=== PATIENT | female | born 1985 | race Caucasian/White ===

== ENCOUNTER 2017-03-04 19:21 | Emergency (ER) | payer OTHER ==
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
[2017-03-04] MEDS ORDERED: Eye-Stream Solution OP ONE (20:36)
[2017-03-04] MEDS ORDERED: TETRACAINE 0.5% STERI-UNIT SOL OP STA (20:36)
[2017-03-04] MEDS ORDERED: Fluor-I-Strip/Ful-Flo OP ONE ×2 (20:36→20:42)
[2017-03-04] MEDS ORDERED: TETRACAINE 0.5% STERI-UNIT SOL OP ONE (20:42)
[2017-03-04] MEDS ORDERED: Eye-Stream Solution ONE (20:42)
[2017-03-04 20:53] LABS: BASOPHIL % 0.5 % (0.0-0.4); Eosinophil % 4.5 % (0.00-5.0); Granulocytes % 38.9 % (36.0-66.0); Lymphocytes % 47.3 % (24.0-44.0); Mean Cell Volume 84.9 fl (78-100); Mean Corpuscular Hemoglobin 29.3 pg (26-32); Mean Platelet Volume 9.7 fl (6-9.5); Monocytes % 8.8 % (0.0-12.0); Platelet Count 252 K/mm3 (150-450); Red Blood Count 4.82 M/mm3 (4.1-5.4); Red Cell Distribution Width 12.7 % (11.5-14.0); White Blood Count 8.6 K/mm3 (4.0-10.5)
[2017-03-04 21:07] LABS: ANION GAP 15.6 MEQ/L (5-15); BLOOD UREA NITROGEN 14 mg/dL (9-20); CHLORIDE 101 mEq/L (98-107); Carbon Dioxide 23.9 mEq/L (21-32); Glucose 98 MG/DL (70-110); Potassium 3.2 mEq/L (3.5-5.1); SODIUM 137 mEq/L (136-145)
[2017-03-04 21:10] LABS: ACETAMINOPHEN < 2.0 ug/ml (10-30); ETHYL ALCOHOL < 0.010 % (0.00-0.01)
[2017-03-04] MEDS ORDERED: Dextrose 5%-Lr IV Solution 1000 ML 1,000 ML IV ONE ×2 (21:34→23:04)
[2017-03-04 21:40] LABS: Collection Type CLEAN CATCH; Leukocyte Esterase TRACE (NEGATIVE)
[2017-03-04 21:41] LABS: ADD URINE CULTURE? YES (NO); Bacteria PACKED /HPF (NEGATIVE); Bilirubin NEGATIVE (NEGATIVE); Blood 250 Ery/ul (0-5); COMPLETE URINE MICROSCOPIC? YES; Epithelial Cells MODERATE /HPF (FEW); Glucose NEGATIVE (NEGATIVE); Mucus MODERATE /HPF (NEGATIVE)
[2017-03-04] MEDS ORDERED: ROCEPHIN 1 Gm-D5w 50 ml Bag** 1 G/50 ML IVPB IV STA (22:24)
[2017-03-04] MEDS ORDERED: ROCEPHIN 1 Gm-D5w 50 ml Bag** 1 G/50 ML IVPB IV ONE (23:04)
[2017-03-04 23:33] VITALS: O2SAT 99
[2017-03-05 00:17] VITALS: BP 117/58; PULSE 87
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
--- NOTE | 2017-03-05 09:56 | XRAY ---
Indication: Trauma of unknown origin. Noncommunicative. Multiple contiguous axial images obtained through the abdomen and pelvis without contrast as ordered. Comparison: None Study is slightly degraded by beam artifact from patient's arms and some respiration artifact. Lung bases are clear. Heart is not enlarged. Noncontrasted stomach stomach and bowel loops appear nonobstructed. There is moderate diffuse scattered colonic fecal debris throughout. No free fluid/air. Liver demonstrates focal fatty infiltration versus pseudo-lesion adjacent to the falciform ligament. Gallbladder is moderately distended without gallstones. Common bile duct is up to 8mm in diameter tapering at the ampulla. Spleen is enlarged measuring 12.4 cm in greatest axial dimension. Query bilateral tubal ligation clips. Remaining liver, pancreas, adrenal glands, kidneys, ureters, bladder, uterus, and aorta appear unremarkable for noncontrast exam. Osseous structures intact. Impression: 1. Fecal stasis without obstruction. 2. Distended gallbladder and common bile duct. Rule out ampullary stenosis versus choledochal stones. Initial gallbladder ultrasound may yield further information. 3. Incidental splenomegaly. Comment: Preliminary interpretation was made by [facility] reports who hepatic hypoattenuation which I believe is just focal fatty infiltration/pseudo-lesion which is a common. Also reported left renal hypoattenuation is not appreciated. CT DI 10.12
--- NOTE | 2017-03-05 10:48 | XRAY ---
Indication: Trauma of unknown origin. Noncommunicative. Multiple contiguous axial images obtained through the head without contrast. Comparison: None Ventriculosulcal pattern appears symmetric. No acute intracranial hemorrhage, abnormal extra-axial fluid collection, or mass effect. Fourth ventricle is midline without hydrocephalus. Guillen-white matter differentiation maintained. Bony calvarium intact. Mild mucosal thickening of both ethmoid sinuses and right frontal sinus fluid leveling. Mastoid air cells are clear. Impression: Paranasal sinus disease. No acute intracranial abnormalities. Comment: Preliminary interpretation was made by [facility] who reports 2 mm increased attenuation in the right temporal lobe which I cannot confirm nor on the sagittal or coronal reformatted images. Low-attenuation also reported in the medial aspect of the right temporal lobe which I believe is normal extension of the temporal horn of the lateral ventricle. CTDI 52.42
[2017-03-16 19:22] LABS: MPVD None Det ng/mL
== END 2017-03-05 00:50 | disposition short-term general hospital (02) ==
LOC: ED 19:21
DX: R41.0 Disorientation, unspecified (principal); S09.90XA Unspecified injury of head, initial encounter; N39.0 Urinary tract infection, site not specified; S36.90XA Unspecified injury of unspecified intra-abdominal organ, initial encounter; F11.90 Opioid use, unspecified, uncomplicated
CPT/HCPCS: 36000; 36415; 70450; 73552; 73590; 73610; 74176; 80048; 80307; 80371; 81000; 82550; 84703; 85025; 87077; 87086; 87186; 96360; 96365; 99285; G0481; J0696; A9270-GY

== ENCOUNTER 2017-04-26 13:29 | Emergency (ER) | payer OTHER ==
[2017-04-26 15:42] LABS: Mean Cell Volume 88.5 fl (78-100); Mean Corpuscular Hemoglobin 29.7 pg (26-32); Mean Platelet Volume 10.2 fl (6-9.5); Platelet Count 160 K/mm3 (150-450); Red Blood Count 4.51 M/mm3 (4.1-5.4); Red Cell Distribution Width 12.7 % (11.5-14.0); White Blood Count 10.1 K/mm3 (4.0-10.5)
[2017-04-26 15:59] LABS: ETHYL ALCOHOL < 0.010 % (0.00-0.01)
[2017-04-26 16:02] LABS: ACETAMINOPHEN < 2.0 ug/ml (10-30)
[2017-04-26 16:16] LABS: ALBUMIN 3.5 g/dL (3.4-5.0); ALKALINE PHOSPHATASE 45 U/L (46-116); ANION GAP 10.4 MEQ/L (5-15); BLOOD UREA NITROGEN 14 mg/dL (9-20); CHLORIDE 106 mEq/L (98-107); Carbon Dioxide 29.5 mEq/L (21-32); Glucose 88 MG/DL (70-110); Potassium 4.5 mEq/L (3.5-5.1); SGOT/AST 14 U/L (15-37); SGPT/ALT 15 U/L (12-78); SODIUM 141 mEq/L (136-145); Total Protein 6.3 gm/dL (6.4-8.2)
--- NOTE | 2017-04-26 16:18 | ERPHSYRPT ---
- History of Present Illness Time Seen by Provider: 04/26/17 16:03 Source: patient, police Exam Limitations: no limitations Patient Subjective Stated Complaint: Pt states she has been out of her medicine for a couple of days and is not feeling right. Triage Nursing Assessment: PT arrived per law enforcement. alert and oriented x3. skin pink warm and dry. afebrile. flat affect. pt covered in urine upon arrival. pt answers questions appropriately but slow to answer. states she "can't remember" some things Physician History: The patient is a 31-year-old female brought in by police complaining of being in an argument with her mother and not acting right for couple of days. The patient has a previous psychiatric history which she states includes bipolar disorder. She she states she has been hospitalized at [facility] previously. She sees Dr. Woo. She tells me that her ex took her psychiatric medicines 2 or 3 days ago. She now has been hearing voices and seeing things that aren't really there. She thinks there is someone out to get her but she doesn't know who it is. She denies wanting to hurt herself, although she did want to hurt herself in the distant past. She denies any street drug use, although she did use street drugs in the distant past. She states that the medications that her ex- took from her are gabapentin and Depakote. Timing/Duration: day(s) (3) Severity of Symptoms-Max: moderate Severity of Symptoms-Current: moderate Context related to: other (meds were taken from her.) Suicidal thoughts: other (none) Associated Symptoms: angry, hallucinating, paranoid Previous symptoms: different symptoms Allergies/Adverse Reactions: No Known Drug Allergies Allergy (Unverified 05/16/16 20:53) Home Medications: Buprenorphine HCl/Naloxone HCl [Suboxone 8 mg-2 mg Sl Film] 8 mg SL DAILY [History] Gabapentin [Neurontin] 600 mg PO TID 05/16/16 [History] Divalproex Sodium [Depakote ER] 250 mg PO DAILY 04/26/17 [History] Hx Tetanus, Diphtheria Vaccination/Date Given: Yes Hx Influenza Vaccination/Date Given: No Hx Pneumococcal Vaccination/Date Given: No - Past Medical History Pertinent Past Medical History: Yes (chronic pain,hepC) Neurological History: No Pertinent History ENT History: No Pertinent History Cardiac History: No Pertinent History Respiratory History: No Pertinent History Endocrine Medical History: No Pertinent History Musculoskeletal History: No Pertinent History GI Medical History: No Pertinent History, Hepatitis History: No Pertinent History Psycho-Social History: Attention Deficit Disorder, Other Female Reproductive Disorders: Other Other Medical History: pt has history of multiple fractures in her life -uses saboxone and neurontin for chronic pain Hep C, bipolar - Past Surgical History Past Surgical History: Yes Musculoskeletal: Orthopedic Surgery Female Surgical History: Tubal Ligation Other Surgical History: right knee - Social History Smoking Status: Current some day smoker How long have you smoked: 1/2 Exposure to second hand smoke: Yes Drug Use: none Patient Lives Alone: Yes - Female History Hx Last Menstrual Period: 04/24/2017 - Review of Systems Constitutional: No Fever, No Chills Eyes: No Symptoms Ears, Nose, & Throat: No Symptoms Respiratory: No Cough, No Dyspnea Cardiac: No Chest Pain, No Edema, No Syncope Abdominal/Gastrointestinal: No Abdominal Pain, No Nausea, No Vomiting, No Diarrhea Genitourinary Symptoms: No Dysuria Musculoskeletal: No Back Pain, No Neck Pain Skin: No Rash Neurological: No Dizziness, No Focal Weakness, No Sensory Changes Psychological: Depression, Emotional Lability, Hallucinations, Mood Changes Endocrine: No Symptoms Hematologic/Lymphatic: No Symptoms Immunological/Allergic: No Symptoms All Other Systems: Reviewed and Negative - Nursing Vital Signs Nursing Vital Signs: Initial Vital Signs Temperature 98.1 F 04/26/17 13:31 Pulse Rate 101 H 04/26/17 13:31 Respiratory Rate 14 04/26/17 13:31 Blood Pressure 137/82 04/26/17 13:31 O2 Sat by Pulse Oximetry 98 04/26/17 13:31 Pain Scale Pain Intensity 0 - Physical Exam General Appearance: no apparent distress Eyes, Ears, Nose, Throat Exam: normal ENT inspection, moist mucous membranes Neck Exam: normal inspection, non-tender, supple Respiratory Exam: normal breath sounds, lungs clear, No respiratory distress Cardiovascular Exam: regular rate/rhythm, No edema Gastrointestinal/Abdominal Exam: soft, No tenderness, No distention Extremities Exam: normal inspection, normal range of motion, No evidence of injury, No edema Neurological Exam: alert, head silverman 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 tested, oriented x 3 Appearance: appropriate appearance Behavior/Eye Contact/Speech: alert & cooperative, good eye contact, normal speech Thoughts/Hallucinations: no apparent hallucination, paranoid, No grandiose Skin Exam: normal color, warm, dry, No rash SpO2 Interpretation: normal SpO2: 98 Oxygen Delivery: Room Air Ordered Tests: Active Orders 24 hr Category Date Time Status ACETAMINOPHEN Stat Lab 04/26/17 15:27 Completed ETHYL ALCOHOL Stat Lab 04/26/17 15:27 Completed HCG QUALITATIVE,SERUM Stat Lab 04/26/17 15:27 Completed SALICYLATE Stat Lab 04/26/17 15:27 Completed UA W/ MICROSCOPIC Stat Lab 04/26/17 17:00 Completed Urine Triage Profile Stat Lab 04/26/17 16:24 Completed Lab/Rad Data: Laboratory Result Diagrams 04/26/17 15:27 04/26/17 15:27 Laboratory Results 04/26/17 04/26/17 04/26/17 Range/Units 17:00 16:24 15:27 WBC (4.0-10.5) K/mm3 RBC (4.1-5.4) M/mm3 Hgb (12.0-16.0) gm/dl Hct (35-47) % MCV (78-100) fl MCH (26-32) pg MCHC (32-36) g/dl RDW (11.5-14.0) % Plt Count (150-450) K/mm3 MPV (6-9.5) fl Sodium (136-145) mEq/L Potassium (3.5-5.1) mEq/L Chloride (98-107) mEq/L Carbon Dioxide (21-32) mEq/L Anion Gap (5-15) MEQ/L BUN (9-20) mg/dL Creatinine (0.55-1.30) mg/dl Estimated GFR ML/MIN Glucose (70-110) MG/DL Calcium (8.5-10.1) mg/dL Total Bilirubin (0.2-1.0) mg/dL AST (15-37) U/L ALT (12-78) U/L Alkaline Phosphatase (46-116) U/L Serum Total Protein (6.4-8.2) gm/dL Albumin (3.4-5.0) g/dL TSH 3rd Generation (0.358-3.740) mIU/L Serum , Qual NEGATIVE (Negative) Ur Collection Type CCMS Urine Color YELLOW (YELLOW) Urine Appearance CLEAR (CLEAR) Urine pH 7.0 (5-6) Ur Specific [place] 1.010 (1.005-1.025) Urine Protein TRACE (Negative) Urine Ketones NEGATIVE (NEGATIVE) Urine Blood NEGATIVE (0-5) Avinash/ul Urine Nitrite NEGATIVE (NEGATIVE) Urine Bilirubin NEGATIVE (NEGATIVE) Urine Urobilinogen NORMAL (0-1) mg/dL Ur Leukocyte Esterase NEGATIVE (NEGATIVE) Urine Microscopic RBC 0-2 (0-2) /HPF Urine Microscopic WBC 0-2 (0-5) /HPF Ur Epithelial Cells FEW (FEW) /HPF Urine Glucose NEGATIVE (NEGATIVE) mg/dL Salicylates (2.8-20.0) mg/dl Urine Opiates Level NEG. (NEGATIVE) Ur Methadone NEG. (NEGATIVE) Acetaminophen (10-30) ug/ml Urine Barbiturates NEG. (NEGATIVE) Ur Phencyclidine (PCP) NEG. (NEGATIVE) Urine Amphetamine NEG. (NEGATIVE) U Benzodiazepine Level POS. (NEGATIVE) Urine Cocaine NEG. (NEGATIVE) Urine Marijuana (THC) NEG. (NEGATIVE) Ethyl Alcohol (0.00-0.01) % Specimen Received 04-26-17 1750 04/26/17 04/26/17 04/26/17 Range/Units 15:27 15:27 15:27 WBC 10.1 (4.0-10.5) K/mm3 RBC 4.51 (4.1-5.4) M/mm3 Hgb 13.4 (12.0-16.0) gm/dl Hct 39.9 (35-47) % MCV 88.5 (78-100) fl MCH 29.7 (26-32) pg MCHC 33.6 (32-36) g/dl RDW 12.7 (11.5-14.0) % Plt Count 160 (150-450) K/mm3 MPV 10.2 H (6-9.5) fl Sodium 141 (136-145) mEq/L Potassium 4.5 (3.5-5.1) mEq/L Chloride 106 (98-107) mEq/L Carbon Dioxide 29.5 (21-32) mEq/L Anion Gap 10.4 (5-15) MEQ/L BUN 14 (9-20) mg/dL Creatinine 0.76 (0.55-1.30) mg/dl Estimated GFR > 60 ML/MIN Glucose 88 (70-110) MG/DL Calcium 8.5 (8.5-10.1) mg/dL Total Bilirubin 0.30 (0.2-1.0) mg/dL AST 14 L (15-37) U/L ALT 15 (12-78) U/L Alkaline Phosphatase 45 L (46-116) U/L Serum Total Protein 6.3 L (6.4-8.2) gm/dL Albumin 3.5 (3.4-5.0) g/dL TSH 3rd Generation 0.998 (0.358-3.740) mIU/L Serum , Qual (Negative) Ur Collection Type Urine Color (YELLOW) Urine Appearance (CLEAR) Urine pH (5-6) Ur Specific [place] (1.005-1.025) Urine Protein (Negative) Urine Ketones (NEGATIVE) Urine Blood (0-5) Avinash/ul Urine Nitrite (NEGATIVE) Urine Bilirubin (NEGATIVE) Urine Urobilinogen (0-1) mg/dL Ur Leukocyte Esterase (NEGATIVE) Urine Microscopic RBC (0-2) /HPF Urine Microscopic WBC (0-5) /HPF Ur Epithelial Cells (FEW) /HPF Urine Glucose (NEGATIVE) mg/dL Salicylates < 2.8 L (2.8-20.0) mg/dl Urine Opiates Level (NEGATIVE) Ur Methadone (NEGATIVE) Acetaminophen < 2.0 L (10-30) ug/ml Urine Barbiturates (NEGATIVE) Ur Phencyclidine (PCP) (NEGATIVE) Urine Amphetamine (NEGATIVE) U Benzodiazepine Level (NEGATIVE) Urine Cocaine (NEGATIVE) Urine Marijuana (THC) (NEGATIVE) Ethyl Alcohol < 0.010 (0.00-0.01) % Specimen Received - Progress Progress: unchanged Progress Note: 04/26/17 19:23 Pt to be ED and sent to [facility] under their (Esha) recommendation. - Departure Time of Disposition: 19:24 Departure Disposition: Transfer ([facility] by ED ) Clinical Impression: Paranoid delusion, Hallucinations Condition: Stable Critical Care Time: No Referrals: DOCTOR,NO FAMILY [Primary Care Provider] -
[2017-04-26 17:53] LABS: Bilirubin NEGATIVE (NEGATIVE); Blood NEGATIVE Ery/ul (0-5); COMPLETE URINE MICROSCOPIC? YES; Collection Type CCMS; Epithelial Cells FEW /HPF (FEW); Glucose NEGATIVE (NEGATIVE); Leukocyte Esterase NEGATIVE (NEGATIVE); WBC 0-2 /HPF (0-5)
[2017-04-26 19:23] VITALS: O2SAT 98
[2017-04-26 20:00] VITALS: BP 102/65; PULSE 78
== END 2017-04-26 21:06 | disposition short-term general hospital (02) ==
LOC: ED 13:29
DX: F22 Delusional disorders (principal); R44.3 Hallucinations, unspecified
CPT/HCPCS: 36415; 80053; 80307; 81000; 84443; 84703; 85027; 90791; 99285; G0481; Q3014

== ENCOUNTER 2017-05-04 20:48 | Emergency (ER) | payer OTHER ==
--- NOTE | 2017-05-04 21:21 | ERPHSYRPT ---
- History of Present Illness Time Seen by Provider: 05/04/17 21:07 Source: patient, family (GM) Exam Limitations: no limitations Physician History: FOR THE PAST 4 MONTHS PT HAS HAD BOTH VISUAL AND AUDITORY HALLUCINATIONS, DECREASED APPETITE, MEMORY DIFFICULTY AND DIFFUSE HEADACHES. PT HAD A [address] [facility] LAST WEEK FOR SIMILAR SYMPTOMS AND HAS BEEN ON ABILIFY 10MG QHS FOR THE PAST 2 WEEKS FOR BIPOLAR DISORDER. TODAY PT'S SYMPTOMS HAVE INCREASED PER GRANDMOTHER. PT DENIES SUICIDAL AND HOMICIDAL IDEATION. Allergies/Adverse Reactions: No Known Drug Allergies Allergy (Unverified 05/04/17 21:32) Home Medications: Buprenorphine HCl/Naloxone HCl [Suboxone 8 mg-2 mg Sl Film] 8 mg SL DAILY [History] Gabapentin [Neurontin] 600 mg PO TID 05/16/16 [History] Aripiprazole 10 mg [Abilify 10 MG] 05/04/17 [History] Hx Tetanus, Diphtheria Vaccination/Date Given: Yes Hx Influenza Vaccination/Date Given: No Hx Pneumococcal Vaccination/Date Given: No - Review of Systems Abdominal/Gastrointestinal: Appetite Changes (DECREASED) Neurological: Headache Psychological: Hallucinations, Memory Loss, Other (BIPOLAR DISORDER) All Other Systems: Reviewed and Negative - Past Medical History Pertinent Past Medical History: Yes (chronic pain,hepC) Neurological History: No Pertinent History ENT History: No Pertinent History Cardiac History: No Pertinent History Respiratory History: No Pertinent History Endocrine Medical History: No Pertinent History Musculoskeletal History: No Pertinent History GI Medical History: No Pertinent History, Hepatitis History: No Pertinent History Psycho-Social History: Attention Deficit Disorder, Other Female Reproductive Disorders: Other Other Medical History: pt has history of multiple fractures in her life -uses saboxone and neurontin for chronic pain Hep C, bipolar - Past Surgical History Past Surgical History: Yes Musculoskeletal: Orthopedic Surgery Female Surgical History: Tubal Ligation Other Surgical History: right knee - Social History Smoking Status: Current some day smoker How long have you smoked: 1/2 Exposure to second hand smoke: Yes Drug Use: none Patient Lives Alone: Yes - Nursing Vital Signs Nursing Vital Signs: Initial Vital Signs Temperature 98 F 05/04/17 21:03 Pulse Rate 72 05/04/17 21:03 Respiratory Rate 16 05/04/17 21:03 Blood Pressure 125/70 05/04/17 21:03 O2 Sat by Pulse Oximetry 97 05/04/17 21:03 Pain Scale Pain Intensity 5 - Physical Exam General Appearance: alert Eye Exam: PERRL/EOMI Ears, Nose, Throat Exam: TMs normal, pharynx normal, moist mucous membranes Neck Exam: normal inspection Respiratory Exam: lungs clear Cardiovascular Exam: normal heart sounds Gastrointestinal/Abdomen Exam: soft, normal bowel sounds Back Exam: normal range of motion Extremity Exam: normal inspection, normal range of motion, No pedal edema Neurologic Exam: alert, oriented x 3, cooperative, sensation nml, No motor deficits Skin Exam: warm, dry SpO2 Interpretation: normal SpO2: 97 Oxygen Delivery: Room Air - Course Nursing assessment & vital signs reviewed: Yes Ordered Tests: Active Orders 24 hr Category Date Time Status Clean Catch Urine Specimen STAT Care 05/04/17 21:22 Active HEAD WITHOUT CONTRAST [CT] Stat Exams 05/04/17 21:20 Taken ACETAMINOPHEN Stat Lab 05/04/17 21:30 Completed CBC W DIFF Stat Lab 05/04/17 21:30 Completed CMP Stat Lab 05/04/17 21:30 Completed CULTURE,URINE Stat Lab 05/04/17 21:30 Received ETHYL ALCOHOL Stat Lab 05/04/17 21:30 Completed HCG QUALITATIVE,SERUM Stat Lab 05/04/17 21:30 Completed MAG [MAGNESIUM] Stat Lab 05/04/17 21:30 Completed SALICYLATE Stat Lab 05/04/17 21:30 Completed UA W/ MICROSCOPIC Stat Lab 05/04/17 21:30 Completed Urine Triage Profile Stat Lab 05/04/17 21:30 Completed Lab/Rad Data: Laboratory Result Diagrams 05/04/17 21:30 05/04/17 21:30 Laboratory Results 05/04/17 05/04/17 05/04/17 Range/Units 21:30 21:30 21:30 WBC (4.0-10.5) K/mm3 RBC (4.1-5.4) M/mm3 Hgb (12.0-16.0) gm/dl Hct (35-47) % MCV (78-100) fl MCH (26-32) pg MCHC (32-36) g/dl RDW (11.5-14.0) % Plt Count (150-450) K/mm3 MPV (6-9.5) fl Gran % (36.0-66.0) % Lymphocytes % (24.0-44.0) % Monocytes % (0.0-12.0) % Eosinophils % (0.00-5.0) % Basophils % (0.0-0.4) % Basophils # (0-0.4) Sodium (136-145) mEq/L Potassium (3.5-5.1) mEq/L Chloride (98-107) mEq/L Carbon Dioxide (21-32) mEq/L Anion Gap (5-15) MEQ/L BUN (9-20) mg/dL Creatinine (0.55-1.30) mg/dl Estimated GFR ML/MIN Glucose (70-110) MG/DL Calcium (8.5-10.1) mg/dL Magnesium 2.1 (1.8-2.4) mg/dL Total Bilirubin (0.2-1.0) mg/dL AST (15-37) U/L ALT (12-78) U/L Alkaline Phosphatase (46-116) U/L Serum Total Protein (6.4-8.2) gm/dL Albumin (3.4-5.0) g/dL Serum , Qual NEGATIVE (Negative) Ur Collection Type Urine Color (YELLOW) Urine Appearance (CLEAR) Urine pH (5-6) Ur Specific [place] (1.005-1.025) Urine Protein (Negative) Urine Ketones (NEGATIVE) Urine Blood (0-5) Avinash/ul Urine Nitrite (NEGATIVE) Urine Bilirubin (NEGATIVE) Urine Urobilinogen (0-1) mg/dL Ur Leukocyte Esterase (NEGATIVE) Urine Microscopic WBC (0-5) /HPF Ur Epithelial Cells (FEW) /HPF Amorphous Crystals (NEGATIVE) /HPF Urine Bacteria (NEGATIVE) /HPF Urine Mucus (NEGATIVE) /HPF Urine Glucose (NEGATIVE) mg/dL Salicylates (2.8-20.0) mg/dl Urine Opiates Level NEG. (NEGATIVE) Ur Methadone NEG. (NEGATIVE) Acetaminophen (10-30) ug/ml Urine Barbiturates NEG. (NEGATIVE) Ur Phencyclidine (PCP) NEG. (NEGATIVE) Urine Amphetamine NEG. (NEGATIVE) U Benzodiazepine Level POS. (NEGATIVE) Urine Cocaine NEG. (NEGATIVE) Urine Marijuana (THC) NEG. (NEGATIVE) Ethyl Alcohol (0.00-0.01) % Specimen Received 05/04/17 05/04/17 05/04/17 Range/Units 21:30 21:30 21:30 WBC 5.9 (4.0-10.5) K/mm3 RBC 4.62 (4.1-5.4) M/mm3 Hgb 13.6 (12.0-16.0) gm/dl Hct 41.5 (35-47) % MCV 89.8 (78-100) fl MCH 29.4 (26-32) pg MCHC 32.8 (32-36) g/dl RDW 13.2 (11.5-14.0) % Plt Count 180 (150-450) K/mm3 MPV 9.5 (6-9.5) fl Gran % 45.1 (36.0-66.0) % Lymphocytes % 44.2 H (24.0-44.0) % Monocytes % 7.7 (0.0-12.0) % Eosinophils % 2.7 (0.00-5.0) % Basophils % 0.3 (0.0-0.4) % Basophils # 0.02 (0-0.4) Sodium 143 (136-145) mEq/L Potassium 4.1 (3.5-5.1) mEq/L Chloride 107 (98-107) mEq/L Carbon Dioxide 27.3 (21-32) mEq/L Anion Gap 12.3 (5-15) MEQ/L BUN 19 (9-20) mg/dL Creatinine 0.81 (0.55-1.30) mg/dl Estimated GFR > 60 ML/MIN Glucose 94 (70-110) MG/DL Calcium 8.7 (8.5-10.1) mg/dL Magnesium (1.8-2.4) mg/dL Total Bilirubin 0.30 (0.2-1.0) mg/dL AST 16 (15-37) U/L ALT 15 (12-78) U/L Alkaline Phosphatase 45 L (46-116) U/L Serum Total Protein 6.9 (6.4-8.2) gm/dL Albumin 3.6 (3.4-5.0) g/dL Serum , Qual (Negative) Ur Collection Type CLEAN CATCH Urine Color YELLOW (YELLOW) Urine Appearance CLOUDY (CLEAR) Urine pH 5.0 (5-6) Ur Specific [place] 1.030 (1.005-1.025) Urine Protein TRACE (Negative) Urine Ketones MODERATE (NEGATIVE) Urine Blood 5-10 (0-5) Avinash/ul Urine Nitrite NEGATIVE (NEGATIVE) Urine Bilirubin NEGATIVE (NEGATIVE) Urine Urobilinogen NORMAL (0-1) mg/dL Ur Leukocyte Esterase NEGATIVE (NEGATIVE) Urine Microscopic WBC 0-2 (0-5) /HPF Ur Epithelial Cells FEW (FEW) /HPF Amorphous Crystals MANY (NEGATIVE) /HPF Urine Bacteria MODERATE (NEGATIVE) /HPF Urine Mucus SLIGHT (NEGATIVE) /HPF Urine Glucose NEGATIVE (NEGATIVE) mg/dL Salicylates 2.8 (2.8-20.0) mg/dl Urine Opiates Level (NEGATIVE) Ur Methadone (NEGATIVE) Acetaminophen < 2.0 L (10-30) ug/ml Urine Barbiturates (NEGATIVE) Ur Phencyclidine (PCP) (NEGATIVE) Urine Amphetamine (NEGATIVE) U Benzodiazepine Level (NEGATIVE) Urine Cocaine (NEGATIVE) Urine Marijuana (THC) (NEGATIVE) Ethyl Alcohol < 0.010 (0.00-0.01) % Specimen Received 05/04/17:2150 - Departure Time of Disposition: 23:17 Departure Disposition: Home Clinical Impression: UTI, SCHIZOPHRENIA Condition: Stable Critical Care Time: No Referrals: DOCTOR,NO FAMILY [NON-STAFF PHY W/O PRIVILEGES] - Instructions: Urinary Tract Infection (UTI) Additional Instructions: FOLLOW UP WITH PRIVATE DOCTOR TOMORROW. Prescriptions: Nitrofurantoin Macro 100 mg [Macrobid 100MG Capsule] 100 mg PO BID #20 capsule
[2017-05-04 21:50] LABS: BASOPHIL % 0.3 % (0.0-0.4); Eosinophil % 2.7 % (0.00-5.0); Granulocytes % 45.1 % (36.0-66.0); Lymphocytes % 44.2 % (24.0-44.0); Mean Cell Volume 89.8 fl (78-100); Mean Corpuscular Hemoglobin 29.4 pg (26-32); Mean Platelet Volume 9.5 fl (6-9.5); Monocytes % 7.7 % (0.0-12.0); Platelet Count 180 K/mm3 (150-450); Red Blood Count 4.62 M/mm3 (4.1-5.4); Red Cell Distribution Width 13.2 % (11.5-14.0); White Blood Count 5.9 K/mm3 (4.0-10.5)
[2017-05-04 22:00] VITALS: BP 135/66; PULSE 96
[2017-05-04 22:04] LABS: ALBUMIN 3.6 g/dL (3.4-5.0); ALKALINE PHOSPHATASE 45 U/L (46-116); ANION GAP 12.3 MEQ/L (5-15); BLOOD UREA NITROGEN 19 mg/dL (9-20); CHLORIDE 107 mEq/L (98-107); Carbon Dioxide 27.3 mEq/L (21-32); ETHYL ALCOHOL < 0.010 % (0.00-0.01); Glucose 94 MG/DL (70-110); Potassium 4.1 mEq/L (3.5-5.1); SGOT/AST 16 U/L (15-37); SGPT/ALT 15 U/L (12-78); SODIUM 143 mEq/L (136-145); Total Protein 6.9 gm/dL (6.4-8.2)
[2017-05-04 22:18] LABS: ACETAMINOPHEN < 2.0 ug/ml (10-30)
[2017-05-04 22:25] LABS: ADD URINE CULTURE? YES (NO); Bacteria MODERATE /HPF (NEGATIVE); Bilirubin NEGATIVE (NEGATIVE); COMPLETE URINE MICROSCOPIC? YES; Collection Type CLEAN CATCH; Epithelial Cells FEW /HPF (FEW); Glucose NEGATIVE (NEGATIVE); Leukocyte Esterase NEGATIVE (NEGATIVE); Mucus SLIGHT /HPF (NEGATIVE); WBC 0-2 /HPF (0-5)
[2017-05-04] MEDS ORDERED: Macrobid 100MG Capsule PO ONE (23:13)
[2017-05-04 23:17] VITALS: O2SAT 97
[2017-05-04] MEDS ORDERED: Macrobid 100MG Capsule ONE (23:19)
--- NOTE | 2017-05-05 09:10 | XRAY ---
Indication: Headache. Chronic pain syndrome. Multiple contiguous axial images obtained through the head without contrast. Comparison: March 04, 2017. Again normal appearing brain parenchyma, ventricles, and bony calvarium. There is mild mucosal thickening of both ethmoid and right maxillary sinuses. Mastoid air cells are clear. Impression: Again no acute intracranial abnormalities. Incidental paranasal sinus disease. Comment: Preliminary interpretation was made by [facility]. No discrepancy. CT DI 70.94
== END 2017-05-04 23:35 | disposition home or self-care (01) ==
LOC: ED 20:48
DX: N39.0 Urinary tract infection, site not specified (principal); F20.9 Schizophrenia, unspecified; Z79.899 Other long term (current) drug therapy
CPT/HCPCS: 36415; 70450; 80053; 80307; 81000; 83735; 84703; 85025; 87077; 87086; 87186; 99284; G0481; A9270-GY

== ENCOUNTER 2017-05-05 17:28 | Observation (INO) | payer OTHER ==
[2017-05-05] MEDS ORDERED: Sodium Chloride 0.9% 1000 ML 1,000 ML IV STA (17:48)
[2017-05-05] MEDS ORDERED: Sodium Chloride 0.9% 1000 ML 1,000 ML ONE ×2 (17:53→20:56)
--- NOTE | 2017-05-05 17:53 | ERPHSYRPT ---
- History of Present Illness Time Seen by Provider: 05/05/17 17:45 Source: patient, police Exam Limitations: clinical condition Patient Subjective Stated Complaint: patient was brought in voluntarily by law enforcement for wakling around confused on place time and whereabouts. states she kept having urges today so she took up to 10 suboxone Triage Nursing Assessment: patient is alert to place and time, but is sedated and states she feels fuzzy, police found her walking around in state of confusion talking to self, lung sounds clear, pulses equal bialteral radius, bowel sounds x4, eyes are reddened nad pupils slow but reactive Physician History: PATIENT WITH A HISTORY OF BIPOLAR DISORDER AND POLYSUBSTANCE ABUSE WAS FOUND BY POLICE TALKING TO HERSELF WITH ALTERED MENTAL STATUS. STATES SHE HAS NOT BEEN COMPLIANT WITH HER PYSCHIATRIC MEDICATIONS. ADMITS INGESTING A TOTAL OF SUBOXONE 10 PILLS THROUGH OUT THE DAY. AMBULATES INTO EMERGENCY WITH POLICE. Timing/Duration: today Severity: mild Character of Deficits: other (MILD LETHARGY) Deficits: no difficulties Baseline/Normal Cognition: alert oriented x 3 Current Cognition: alert oriented x 3 Baseline Gait: walks w/o assistance Associated Symptoms: other (LETHARGY) Allergies/Adverse Reactions: No Known Drug Allergies Allergy (Unverified 05/04/17 21:32) Home Medications: Buprenorphine HCl/Naloxone HCl [Suboxone 8 mg-2 mg Sl Film] 8 mg SL DAILY [History] Gabapentin [Neurontin] 600 mg PO TID 05/16/16 [History] Aripiprazole 10 mg [Abilify 10 MG] 05/04/17 [History] Hx Tetanus, Diphtheria Vaccination/Date Given: Yes Hx Influenza Vaccination/Date Given: No Hx Pneumococcal Vaccination/Date Given: No Immunizations Up to Date: No - Review of Systems Constitutional: Lethargy, No Fever, No Chills Eyes: No Symptoms Ears, Nose, & Throat: No Symptoms Respiratory: No Symptoms, No Cough, No Dyspnea Cardiac: No Symptoms, No Chest Pain, No Edema, No Syncope Abdominal/Gastrointestinal: No Symptoms, No Abdominal Pain, No Nausea, No Vomiting, No Diarrhea Genitourinary Symptoms: No Symptoms, No Dysuria Musculoskeletal: No Symptoms, No Back Pain, No Neck Pain Skin: No Symptoms, No Rash Neurological: Lethargy, Other (DROWISNESS), No Dizziness, No Focal Weakness, No Sensory Changes Psychological: No Symptoms Endocrine: No Symptoms All Other Systems: Reviewed and Negative - Past Medical History Pertinent Past Medical History: Yes (chronic pain,hepC) Neurological History: No Pertinent History ENT History: No Pertinent History Cardiac History: No Pertinent History Respiratory History: No Pertinent History Endocrine Medical History: No Pertinent History Musculoskeletal History: No Pertinent History GI Medical History: No Pertinent History, Hepatitis History: No Pertinent History Psycho-Social History: Attention Deficit Disorder, Other Female Reproductive Disorders: Other Other Medical History: pt has history of multiple fractures in her life -uses saboxone and neurontin for chronic pain Hep C, bipolar - Past Surgical History Past Surgical History: Yes Musculoskeletal: Orthopedic Surgery Female Surgical History: Tubal Ligation Other Surgical History: right knee - Social History Smoking Status: Former smoker How long have you smoked: 1/2 Exposure to second hand smoke: Yes Drug Use: none Patient Lives Alone: Yes - Nursing Vital Signs Nursing Vital Signs: Initial Vital Signs Temperature 98.7 F 05/05/17 17:31 Pulse Rate 115 H 05/05/17 17:31 Respiratory Rate 20 05/05/17 17:31 Blood Pressure 128/89 05/05/17 17:31 O2 Sat by Pulse Oximetry 96 05/05/17 17:31 Pain Scale Pain Intensity 0 - [place] Coma Scale Best Eye Response ([place]): (4) open spontaneously Best Verbal Response ([place]): (5) oriented Best Motor Response ([place]): (6) obeys commands [place] Total: 15 - Physical Exam General Appearance: no apparent distress, alert (SLIGHTLY LETHARGIC) Eye Exam: bilateral eye: normal inspection, PERRL Ears, Nose, Throat Exam: normal ENT inspection Neck Exam: normal inspection, non-tender, supple Respiratory: normal breath sounds, lungs clear, airway intact, No respiratory distress Cardiovascular: regular rate/rhythm Gastrointestinal: soft, normal bowel sounds (NONTENDER) Back Exam: normal inspection, normal range of motion Extremity Exam: normal inspection, normal range of motion Peripheral Pulses: carotid (R): 2+, carotid (L): 2+, femoral (R): 2+, femoral (L ): 2+ Mental Status: alert, oriented x 3, 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: normal hearing Coordination/Gait: normal finger to nose Motor/Sensory: no motor deficit DTR: bicep (R): 2+, bicep (L): 2+, tricep (R): 2+, tricep (L): 2+, knee (R): 2+ , knee (L): 2+, ankle (R): 2+, ankle (L): 2+ Skin Exam: normal color SpO2 Interpretation: normal SpO2: 96 Oxygen Delivery: Room Air - Course EKG Interpreted by Me: RATE, Sinus Rhythm, Sinus Tach (RATE 112 LATERAL FLAT T- WAVES) Ordered Tests: Active Orders 24 hr Category Date Time Status Bedrest with BRP/BSC ROUTINE Activity 05/05/17 19:51 Ordered Admission/Status Order ROUTINE Care 05/05/17 19:49 Ordered Die Cleaner STAT Care 05/05/17 17:49 Active Clean Catch Urine Specimen STAT Care 05/05/17 17:48 Active Code Status Order ROUTINE Care 05/05/17 19:47 Ordered EKG-ER Only STAT Care 05/05/17 17:48 Active IV Insertion STAT Care 05/05/17 17:48 Active Neuro Checks Q4H Care 05/05/17 19:49 Ordered Telemetry CONTINUOUS Care 05/05/17 19:50 Ordered Vital Signs .[id number],q3omx2,q1hx2,[id number] Care 05/05/17 19:47 Ordered NPO except Meds Diet 05/05/17 19:53 Ordered ACETAMINOPHEN Stat Lab 05/05/17 17:50 Completed CBC W DIFF Stat Lab 05/05/17 17:50 Completed CMP Stat Lab 05/05/17 17:50 Completed ETHYL ALCOHOL Stat Lab 05/05/17 17:50 Completed HCG,QUALITATIVE URINE Stat Lab 05/05/17 18:30 Completed SALICYLATE Stat Lab 05/05/17 17:50 Completed UA W/RFX UR CULTURE Stat Lab 05/05/17 18:30 Completed Urine Triage Profile Stat Lab 05/05/17 18:30 Completed Oxygen NASAL CANNULA 2 lpm RT 05/05/17 19:47 Ordered Pulse Oximetry ROUTINE RT 05/05/17 19:51 Ordered Transfer Order Routine Transfer 05/05/17 Ordered Medication Summary Generic Name Dose Route Start Last Admin Trade Name Freq PRN Reason Stop Dose Admin Acetaminophen 650 mg 05/05/17 19:47 Tylenol 325 Mg PO 06/04/17 19:46 Q4H PRN PRN PAIN, FEVER, HEADACHE Sodium Chloride 1,000 mls @ 150 mls/hr 05/05/17 20:00 Sodium Chloride 0.9% 1000 Ml IV 06/04/17 19:59 .[id number] YONAS Discontinued Medications Generic Name Dose Route Start Last Admin Trade Name Freq PRN Reason Stop Dose Admin Sodium Chloride 1,000 mls @ 999 mls/hr 05/05/17 17:48 05/05/17 17:56 Sodium Chloride 0.9% 1000 Ml IV 05/05/17 18:48 999 mls/hr .Q1H1M STA Administration Sodium Chloride Confirm 05/05/17 17:53 Sodium Chloride 0.9% 1000 Ml Administered 05/05/17 17:54 Dose 1,000 mls @ ud .ROUTE .[facility] Lab/Rad Data: Laboratory Result Diagrams 05/05/17 17:50 05/05/17 17:50 Laboratory Results 05/05/17 05/05/17 05/05/17 Range/Units 18:30 18:30 18:30 WBC (4.0-10.5) K/mm3 RBC (4.1-5.4) M/mm3 Hgb (12.0-16.0) gm/dl Hct (35-47) % MCV (78-100) fl MCH (26-32) pg MCHC (32-36) g/dl RDW (11.5-14.0) % Plt Count (150-450) K/mm3 MPV (6-9.5) fl Gran % (36.0-66.0) % Lymphocytes % (24.0-44.0) % Monocytes % (0.0-12.0) % Eosinophils % (0.00-5.0) % Basophils % (0.0-0.4) % Basophils # (0-0.4) Sodium (136-145) mEq/L Potassium (3.5-5.1) mEq/L Chloride (98-107) mEq/L Carbon Dioxide (21-32) mEq/L Anion Gap (5-15) MEQ/L BUN (9-20) mg/dL Creatinine (0.55-1.30) mg/dl Estimated GFR ML/MIN Glucose (70-110) MG/DL Calcium (8.5-10.1) mg/dL Total Bilirubin (0.2-1.0) mg/dL AST (15-37) U/L ALT (12-78) U/L Alkaline Phosphatase (46-116) U/L Serum Total Protein (6.4-8.2) gm/dL Albumin (3.4-5.0) g/dL Ur Collection Type CLEAN CATCH Urine Color YELLOW (YELLOW) Urine Appearance CLEAR (CLEAR) Urine pH 5.0 (5-6) Ur Specific [place] 1.030 (1.005-1.025) Urine Protein TRACE (Negative) Urine Ketones NEGATIVE (NEGATIVE) Urine Blood TRACE NON-HEM (0-5) Avinash/ul Urine Nitrite NEGATIVE (NEGATIVE) Urine Bilirubin NEGATIVE (NEGATIVE) Urine Urobilinogen NORMAL (0-1) mg/dL Ur Leukocyte Esterase NEGATIVE (NEGATIVE) Urine Glucose NEGATIVE (NEGATIVE) mg/dL Urine HCG, Qual NEGATIVE (Negative) Salicylates (2.8-20.0) mg/dl Urine Opiates Level NEG. (NEGATIVE) Ur Methadone NEG. (NEGATIVE) Acetaminophen (10-30) ug/ml Urine Barbiturates NEG. (NEGATIVE) Ur Phencyclidine (PCP) NEG. (NEGATIVE) Urine Amphetamine NEG. (NEGATIVE) U Benzodiazepine Level POS. (NEGATIVE) Urine Cocaine NEG. (NEGATIVE) Urine Marijuana (THC) NEG. (NEGATIVE) Ethyl Alcohol (0.00-0.01) % Specimen Received 05/05/17:1830 05/05/17 05/05/17 Range/Units 17:50 17:50 WBC 8.8 (4.0-10.5) K/mm3 RBC 4.94 (4.1-5.4) M/mm3 Hgb 14.6 (12.0-16.0) gm/dl Hct 44.1 (35-47) % MCV 89.3 (78-100) fl MCH 29.6 (26-32) pg MCHC 33.1 (32-36) g/dl RDW 13.2 (11.5-14.0) % Plt Count 220 (150-450) K/mm3 MPV 9.7 H (6-9.5) fl Gran % 52.2 (36.0-66.0) % Lymphocytes % 35.5 (24.0-44.0) % Monocytes % 10.0 (0.0-12.0) % Eosinophils % 2.1 (0.00-5.0) % Basophils % 0.2 (0.0-0.4) % Basophils # 0.02 (0-0.4) Sodium 147 H (136-145) mEq/L Potassium 3.5 (3.5-5.1) mEq/L Chloride 109 H (98-107) mEq/L Carbon Dioxide 26.9 (21-32) mEq/L Anion Gap 14.9 (5-15) MEQ/L BUN 22 H (9-20) mg/dL Creatinine 1.11 (0.55-1.30) mg/dl Estimated GFR > 60 ML/MIN Glucose 154 H (70-110) MG/DL Calcium 9.5 (8.5-10.1) mg/dL Total Bilirubin 0.40 (0.2-1.0) mg/dL AST 15 (15-37) U/L ALT 16 (12-78) U/L Alkaline Phosphatase 49 (46-116) U/L Serum Total Protein 7.6 (6.4-8.2) gm/dL Albumin 4.0 (3.4-5.0) g/dL Ur Collection Type Urine Color (YELLOW) Urine Appearance (CLEAR) Urine pH (5-6) Ur Specific [place] (1.005-1.025) Urine Protein (Negative) Urine Ketones (NEGATIVE) Urine Blood (0-5) Avinash/ul Urine Nitrite (NEGATIVE) Urine Bilirubin (NEGATIVE) Urine Urobilinogen (0-1) mg/dL Ur Leukocyte Esterase (NEGATIVE) Urine Glucose (NEGATIVE) mg/dL Urine HCG, Qual (Negative) Salicylates < 2.8 L (2.8-20.0) mg/dl Urine Opiates Level (NEGATIVE) Ur Methadone (NEGATIVE) Acetaminophen < 2.0 L (10-30) ug/ml Urine Barbiturates (NEGATIVE) Ur Phencyclidine (PCP) (NEGATIVE) Urine Amphetamine (NEGATIVE) U Benzodiazepine Level (NEGATIVE) Urine Cocaine (NEGATIVE) Urine Marijuana (THC) (NEGATIVE) Ethyl Alcohol < 0.010 (0.00-0.01) % Specimen Received - Progress Discussed with : Hima Will see patient in: hospital (observation) (AT 1915 FOR OBSERVATION) - Departure Time of Disposition: 20:00 Departure Disposition: Observation Clinical Impression: POLYSUBSTANCE ABUSE, DRUG OVERDOSE Condition: Stable Critical Care Time: No Referrals: ALYSSA VALDOVINOS [Primary Care Provider] -
[2017-05-05 18:01] LABS: BASOPHIL % 0.2 % (0.0-0.4); Eosinophil % 2.1 % (0.00-5.0); Granulocytes % 52.2 % (36.0-66.0); Lymphocytes % 35.5 % (24.0-44.0); Mean Cell Volume 89.3 fl (78-100); Mean Corpuscular Hemoglobin 29.6 pg (26-32); Mean Platelet Volume 9.7 fl (6-9.5); Platelet Count 220 K/mm3 (150-450); Red Blood Count 4.94 M/mm3 (4.1-5.4); Red Cell Distribution Width 13.2 % (11.5-14.0); White Blood Count 8.8 K/mm3 (4.0-10.5)
[2017-05-05 18:22] LABS: ALKALINE PHOSPHATASE 49 U/L (46-116); ANION GAP 14.9 MEQ/L (5-15); BLOOD UREA NITROGEN 22 mg/dL (9-20); CHLORIDE 109 mEq/L (98-107); Carbon Dioxide 26.9 mEq/L (21-32); ETHYL ALCOHOL < 0.010 % (0.00-0.01); Glucose 154 MG/DL (70-110); Potassium 3.5 mEq/L (3.5-5.1); SGOT/AST 15 U/L (15-37); SGPT/ALT 16 U/L (12-78); SODIUM 147 mEq/L (136-145); Total Protein 7.6 gm/dL (6.4-8.2)
[2017-05-05 18:23] LABS: ACETAMINOPHEN < 2.0 ug/ml (10-30)
[2017-05-05 19:01] LABS: ADD URINE CULTURE? NO (NO); Bilirubin NEGATIVE (NEGATIVE); Blood TRACE NON-HEM Ery/ul (0-5); Collection Type CLEAN CATCH; Glucose NEGATIVE (NEGATIVE); Leukocyte Esterase NEGATIVE (NEGATIVE)
[2017-05-05 19:03] LABS: COMPLETE URINE MICROSCOPIC? YES
[2017-05-05] MEDS ORDERED: TYLENOL 325 MG PO PRN (19:47)
[2017-05-05] MEDS ORDERED: Sodium Chloride 0.9% 1000 ML 1,000 ML IV SCH (20:00)
[2017-05-06 04:14] VITALS: PULSE 77
[2017-05-06 04:15] VITALS: O2SAT 100
[2017-05-06] MEDS ORDERED: NITRO-BID 2% UD PACKETS ONE (05:44)
[2017-05-06 07:45] VITALS: BP 115/79
--- NOTE | 2017-05-06 13:40 | SSS ---
DISCHARGE DIAGNOSES: 1) PROFOUND DEPRESSION. 2) HISTORY OF BIPOLAR DISORDER. HISTORY: The patient is a 31 year-old white female brought into the emergency room by her grandmother. Apparently she was somewhat disoriented. She was abusing Suboxone. She reports that she had taken ten pills the day she was brought in. She was noted to be sedated when she presented but she was cooperative to authorities as they brought her in for evaluation. PAST MEDICAL/SURGICAL HISTORY: Significant basically for her bipolar disorder. She has hepatitis C, multiple fractures with chronic pain disorders as well. MEDICATIONS: The patient apparently currently takes Suboxone 8 mg by 2 mg and Neurontin 600 mg t.i.d. She is also on Abilify 10 mg daily. ALLERGIES: NKDA. PHYSICAL EXAMINATION: Revealed a well nourished, well developed 31 year-old white female who is somewhat subdued but answering questions. She held her arm across her face but would answer questions. VITAL SIGNS: Her vital signs on admission showed temperature 98.7F, pulse 115, respiratory rate 20, blood pressure 128/89. O2 saturation 96% on room air. HEENT: Normocephalic, atraumatic. Pupils equal round reactive to light. Extraocular movements intact. Oropharynx is pink and moist. NECK: Supple without lymphadenopathy, thyromegaly or JVD. CHEST: Clear to auscultation with good air movement bilaterally. HEART: Regular rate and rhythm without murmurs, rubs or gallops. ABDOMEN: Soft, nontender, nondistended without hepatosplenomegaly or masses. EXTREMITIES: Without clubbing, cyanosis or edema. NEUROLOGIC: The patient is alert and oriented x3 with no focal deficits noted. LAB DATA AND TESTS: She was noted to have essentially normal UA. Her urine drug screen was positive for benzodiazepines but otherwise negative. CBC was normal. Metabolic panel showed a glucose nonfasting at 154, BUN 22, creatinine 1.11. Liver enzymes were normal. Electrolytes showed slightly high sodium at 147. Acetaminophen, salicylates and alcohol were all negative. Urine test was negative. The EKG showed normal sinus rhythm. HOSPITAL COURSE: The patient was admitted to ICU for close monitoring. She had an appointment this morning for inpatient evaluation and treatment in a facility in [place] and her grandmother was willing to take her up there and the patient was willing to go. We therefore discharged her to the custody of her grandmother to take her to the [facility] for inpatient management.
== END 2017-05-06 11:30 ==
LOC: ED 17:28 → ICU 20:00
PROVIDERS: ADMIT Family Medicine; ATTEND Family Medicine
DX: F32.9 Major depressive disorder, single episode, unspecified (principal); F31.9 Bipolar disorder, unspecified; B19.20 Unspecified viral hepatitis C without hepatic coma; G89.29 Other chronic pain; F19.10 Other psychoactive substance abuse, uncomplicated
CPT/HCPCS: 36000; 36415; 80053; 80307; 81002; 84703; 85025; 93005; 93041; 96360; 99285; G0378; G0481; A9270-GY

== ENCOUNTER 2017-05-06 19:50 | Emergency (ER) | payer OTHER ==
--- NOTE | 2017-05-06 19:57 | ERPHSYRPT ---
- History of Present Illness Time Seen by Provider: 05/06/17 19:50 Source: patient, EMS Exam Limitations: no limitations Physician History: REPORTEDLY PT TOOK 10 SUBOXONE TODAY PER EMS. PT DENIES SUICIDAL/HOMICIDAL IDEATION, CHEST PAIN, HEADACHE, SHORTNESS OF AIR, FEVER, ABDOMINAL PAIN, WEAKNESS. Allergies/Adverse Reactions: No Known Drug Allergies Allergy (Verified 05/06/17 20:22) Home Medications: Buprenorphine HCl/Naloxone HCl [Suboxone 8 mg-2 mg Sl Film] 8 mg SL DAILY [History] Gabapentin [Neurontin] 600 mg PO TID 05/16/16 [History] Aripiprazole 10 mg [Abilify 10 MG] 1 tab PO DAILY 05/04/17 [History] Hx Tetanus, Diphtheria Vaccination/Date Given: Yes Hx Influenza Vaccination/Date Given: No Hx Pneumococcal Vaccination/Date Given: No - Review of Systems Constitutional: No Fever, No Chills Ears, Nose, & Throat: No Ear Pain, No Throat Pain Respiratory: No Dyspnea Cardiac: No Chest Pain Abdominal/Gastrointestinal: No Abdominal Pain, No Vomiting Musculoskeletal: No Back Pain, No Neck Pain Neurological: No Headache Endocrine: No Excessive Sweating All Other Systems: Reviewed and Negative - Past Medical History Pertinent Past Medical History: Yes (chronic pain,hepC) Neurological History: No Pertinent History ENT History: No Pertinent History Cardiac History: No Pertinent History Respiratory History: No Pertinent History Endocrine Medical History: No Pertinent History Musculoskeletal History: No Pertinent History GI Medical History: No Pertinent History, Hepatitis History: No Pertinent History Psycho-Social History: Attention Deficit Disorder, Other Female Reproductive Disorders: Other Other Medical History: pt has history of multiple fractures in her life -uses saboxone and neurontin for chronic pain Hep C, bipolar - Past Surgical History Past Surgical History: Yes Musculoskeletal: Orthopedic Surgery Female Surgical History: Tubal Ligation Other Surgical History: right knee - Social History Smoking Status: Former smoker How long have you smoked: 1/2 Exposure to second hand smoke: No Drug Use: none Patient Lives Alone: Yes - Nursing Vital Signs Nursing Vital Signs: Initial Vital Signs Temperature 98.3 F 05/06/17 20:16 Pulse Rate 82 05/06/17 20:16 Respiratory Rate 16 05/06/17 20:16 Blood Pressure 112/78 05/06/17 20:16 O2 Sat by Pulse Oximetry 98 05/06/17 20:16 Pain Scale Pain Intensity 0 - Physical Exam General Appearance: alert Eye Exam: PERRL/EOMI Ears, Nose, Throat Exam: TMs normal, pharynx normal, moist mucous membranes Neck Exam: normal inspection Respiratory Exam: lungs clear, airway intact Cardiovascular Exam: normal heart sounds, normal peripheral pulses Gastrointestinal/Abdomen Exam: soft, normal bowel sounds Back Exam: normal range of motion Extremity Exam: normal inspection, No pedal edema Neurologic Exam: alert, cooperative, normal mood/affect, sensation nml, No motor deficits Skin Exam: warm, dry - Course Nursing assessment & vital signs reviewed: Yes Ordered Tests: Active Orders 24 hr Category Date Time Status Clean Catch Urine Specimen STAT Care 05/06/17 22:16 Active ACETAMINOPHEN Stat Lab 05/06/17 20:07 Completed CBC W DIFF Stat Lab 05/06/17 20:07 Completed CMP Stat Lab 05/06/17 20:07 Completed ETHYL ALCOHOL Stat Lab 05/06/17 20:07 Completed HCG QUALITATIVE,SERUM Stat Lab 05/06/17 20:07 Completed SALICYLATE Stat Lab 05/06/17 20:07 Completed UA W/RFX UR CULTURE Stat Lab 05/06/17 19:56 Completed Urine Triage Profile Stat Lab 05/06/17 21:55 Completed Medication Summary Discontinued Medications Generic Name Dose Route Start Last Admin Trade Name Darci PRN Reason Stop Dose Admin Potassium Chloride 10 meq 05/06/17 21:20 05/06/17 21:28 Klor Con 10 Meq PO 05/06/17 21:21 10 meq STAT ONE Administration Potassium Chloride Confirm 05/06/17 21:27 Klor Con 10 Meq Administered 05/06/17 21:28 Dose 10 meq PO .[facility]-MED ONE Lab/Rad Data: Laboratory Result Diagrams 05/06/17 20:07 05/06/17 20:07 Laboratory Results 05/06/17 05/06/17 05/06/17 Range/Units 21:55 20:07 20:07 WBC (4.0-10.5) K/mm3 RBC (4.1-5.4) M/mm3 Hgb (12.0-16.0) gm/dl Hct (35-47) % MCV (78-100) fl MCH (26-32) pg MCHC (32-36) g/dl RDW (11.5-14.0) % Plt Count (150-450) K/mm3 MPV (6-9.5) fl Gran % (36.0-66.0) % Lymphocytes % (24.0-44.0) % Monocytes % (0.0-12.0) % Eosinophils % (0.00-5.0) % Basophils % (0.0-0.4) % Basophils # (0-0.4) Sodium 144 (136-145) mEq/L Potassium 3.4 L (3.5-5.1) mEq/L Chloride 106 (98-107) mEq/L Carbon Dioxide 26.4 (21-32) mEq/L Anion Gap -0.8 L (5-15) MEQ/L BUN 12 (9-20) mg/dL Creatinine 0.69 (0.55-1.30) mg/dl Estimated GFR > 60 ML/MIN Glucose 87 (70-110) MG/DL Calcium 8.5 (8.5-10.1) mg/dL Total Bilirubin 0.50 (0.2-1.0) mg/dL AST 18 (15-37) U/L ALT 12 (12-78) U/L Alkaline Phosphatase 39 L (46-116) U/L Serum Total Protein 6.5 (6.4-8.2) gm/dL Albumin 3.4 (3.4-5.0) g/dL Serum , Qual NEGATIVE (Negative) Ur Collection Type Urine Color (YELLOW) Urine Appearance (CLEAR) Urine pH (5-6) Ur Specific [place] (1.005-1.025) Urine Protein (Negative) Urine Ketones (NEGATIVE) Urine Blood (0-5) Avinash/ul Urine Nitrite (NEGATIVE) Urine Bilirubin (NEGATIVE) Urine Urobilinogen (0-1) mg/dL Ur Leukocyte Esterase (NEGATIVE) Urine Glucose (NEGATIVE) mg/dL Salicylates < 2.8 L (2.8-20.0) mg/dl Urine Opiates Level NEG. (NEGATIVE) Ur Methadone NEG. (NEGATIVE) Acetaminophen 2.1 L (10-30) ug/ml Urine Barbiturates NEG. (NEGATIVE) Ur Phencyclidine (PCP) NEG. (NEGATIVE) Urine Amphetamine NEG. (NEGATIVE) U Benzodiazepine Level POS. (NEGATIVE) Urine Cocaine NEG. (NEGATIVE) Urine Marijuana (THC) NEG. (NEGATIVE) Ethyl Alcohol < 0.010 (0.00-0.01) % Specimen Received 05/06/17 05/06/17 Range/Units 20:07 19:56 WBC 5.8 (4.0-10.5) K/mm3 RBC 4.21 (4.1-5.4) M/mm3 Hgb 12.6 (12.0-16.0) gm/dl Hct 38.1 (35-47) % MCV 90.5 (78-100) fl MCH 29.9 (26-32) pg MCHC 33.1 (32-36) g/dl RDW 12.7 (11.5-14.0) % Plt Count 167 (150-450) K/mm3 MPV 9.3 (6-9.5) fl Gran % 45.0 (36.0-66.0) % Lymphocytes % 44.1 H (24.0-44.0) % Monocytes % 7.5 (0.0-12.0) % Eosinophils % 2.9 (0.00-5.0) % Basophils % 0.5 (0.0-0.4) % Basophils # 0.03 (0-0.4) Sodium (136-145) mEq/L Potassium (3.5-5.1) mEq/L Chloride (98-107) mEq/L Carbon Dioxide (21-32) mEq/L Anion Gap (5-15) MEQ/L BUN (9-20) mg/dL Creatinine (0.55-1.30) mg/dl Estimated GFR ML/MIN Glucose (70-110) MG/DL Calcium (8.5-10.1) mg/dL Total Bilirubin (0.2-1.0) mg/dL AST (15-37) U/L ALT (12-78) U/L Alkaline Phosphatase (46-116) U/L Serum Total Protein (6.4-8.2) gm/dL Albumin (3.4-5.0) g/dL Serum , Qual (Negative) Ur Collection Type CLEAN CATCH Urine Color YELLOW (YELLOW) Urine Appearance CLEAR (CLEAR) Urine pH 5.0 (5-6) Ur Specific [place] 1.030 (1.005-1.025) Urine Protein NEGATIVE (Negative) Urine Ketones NEGATIVE (NEGATIVE) Urine Blood NEGATIVE (0-5) Avinash/ul Urine Nitrite NEGATIVE (NEGATIVE) Urine Bilirubin NEGATIVE (NEGATIVE) Urine Urobilinogen NORMAL (0-1) mg/dL Ur Leukocyte Esterase NEGATIVE (NEGATIVE) Urine Glucose NEGATIVE (NEGATIVE) mg/dL Salicylates (2.8-20.0) mg/dl Urine Opiates Level (NEGATIVE) Ur Methadone (NEGATIVE) Acetaminophen (10-30) ug/ml Urine Barbiturates (NEGATIVE) Ur Phencyclidine (PCP) (NEGATIVE) Urine Amphetamine (NEGATIVE) U Benzodiazepine Level (NEGATIVE) Urine Cocaine (NEGATIVE) Urine Marijuana (THC) (NEGATIVE) Ethyl Alcohol (0.00-0.01) % Specimen Received 05/04/171954 - Departure Time of Disposition: 23:59 Departure Disposition: Home Clinical Impression: MILD HYPOKALEMIA, BIPOLAR DISORDER Condition: Stable Critical Care Time: No Referrals: ALYSSA VALDOVINOS [Primary Care Provider] - Instructions: Bipolar Disorder
[2017-05-06 20:10] LABS: BASOPHIL % 0.5 % (0.0-0.4); Eosinophil % 2.9 % (0.00-5.0); Lymphocytes % 44.1 % (24.0-44.0); Mean Cell Volume 90.5 fl (78-100); Mean Corpuscular Hemoglobin 29.9 pg (26-32); Mean Platelet Volume 9.3 fl (6-9.5); Monocytes % 7.5 % (0.0-12.0); Platelet Count 167 K/mm3 (150-450); Red Blood Count 4.21 M/mm3 (4.1-5.4); Red Cell Distribution Width 12.7 % (11.5-14.0); White Blood Count 5.8 K/mm3 (4.0-10.5)
[2017-05-06 20:33] LABS: ALBUMIN 3.4 g/dL (3.4-5.0); ALKALINE PHOSPHATASE 39 U/L (46-116); ANION GAP -0.8 MEQ/L (5-15); BLOOD UREA NITROGEN 12 mg/dL (9-20); CHLORIDE 106 mEq/L (98-107); Carbon Dioxide 26.4 mEq/L (21-32); ETHYL ALCOHOL < 0.010 % (0.00-0.01); Glucose 87 MG/DL (70-110); Potassium 3.4 mEq/L (3.5-5.1); SGOT/AST 18 U/L (15-37); SGPT/ALT 12 U/L (12-78); Total Protein 6.5 gm/dL (6.4-8.2)
[2017-05-06 20:34] LABS: ACETAMINOPHEN 2.1 ug/ml (10-30)
[2017-05-06] MEDS ORDERED: Klor Con 10 MEQ PO ONE ×2 (21:20→21:27)
[2017-05-06 21:59] LABS: ADD URINE CULTURE? NO (NO); Bilirubin NEGATIVE (NEGATIVE); Blood NEGATIVE Ery/ul (0-5); COMPLETE URINE MICROSCOPIC? NO; Collection Type CLEAN CATCH; Glucose NEGATIVE (NEGATIVE); Leukocyte Esterase NEGATIVE (NEGATIVE)
[2017-05-06 22:27] LABS: SODIUM 144 mEq/L (136-145)
[2017-05-07 10:06] VITALS: BP 105/70; PULSE 70; O2SAT 99
== END 2017-05-07 10:04 | disposition home or self-care (01) ==
LOC: ED 19:50
DX: E87.6 Hypokalemia (principal); F31.9 Bipolar disorder, unspecified
CPT/HCPCS: 36415; 80053; 80307; 81002; 84703; 85025; 99284; G0481; A9270-GY

== ENCOUNTER 2017-05-12 18:59 | Emergency (ER) | payer OTHER ==
--- NOTE | 2017-05-12 19:32 | ERPHSYRPT ---
- History of Present Illness Time Seen by Provider: 05/12/17 19:03 Source: patient Exam Limitations: no limitations Patient Subjective Stated Complaint: police report that pt was being dropped off by a transportation vehicle and pt refused to get out of vehicle because she states there was something in her house. The transport vehicle states pt had not actually gotten out of the vehicle. upon arrival to ER pt states she does not remember who she is or her birthday. Triage Nursing Assessment: pt ambulated into ER without difficulty. Pt able to speak to Dr about her medication snd the feelings of "seeing things." Pt afebrile. and alert. Pt oriented x3. Physician History: REPORTEDLY TODAY PT REFUSED TO GET OUT OF A TRANSPORT VEHICLE BECAUSE THERE WAS SOMETHING IN HER HOUSE. PT WAS THEN BROUGHT TO [facility] FOR EVALUATION. PT STATES FOR THE PAST YEAR SHE HAS HAD VISUAL AND AUDITORY HALLUCINATIONS(USUALLY A MALE VOICE) AND PT HAS NOT BEEN TAKING HER MEDICATIONS. PT DENIES CHEST PAIN, SHORTNESS OF AIR, FEVER, VOMITING, ABDOMINAL PAIN, HEADACHE. PT DENIES SUICIDAL AND HOMICIDAL IDEATIONS. Allergies/Adverse Reactions: ibuprofen [From Motrin] Allergy (Verified 05/12/17 19:13) NSAIDS (Non-Steroidal Anti-Inflamma Allergy (Verified 05/12/17 19:13) Hx Tetanus, Diphtheria Vaccination/Date Given: Yes (up to date) Hx Influenza Vaccination/Date Given: No Hx Pneumococcal Vaccination/Date Given: No Immunizations Up to Date: Yes - Review of Systems Constitutional: No Fever Respiratory: No Dyspnea Cardiac: No Chest Pain Abdominal/Gastrointestinal: No Abdominal Pain, No Vomiting Psychological: Hallucinations (VISUAL & AUDITORY), No Suicidal Ideations, No Homicidal Ideations All Other Systems: Reviewed and Negative - Past Medical History Pertinent Past Medical History: Yes Neurological History: No Pertinent History ENT History: No Pertinent History Cardiac History: No Pertinent History Respiratory History: No Pertinent History Endocrine Medical History: No Pertinent History Musculoskeletal History: No Pertinent History GI Medical History: No Pertinent History, Hepatitis History: No Pertinent History Psycho-Social History: Attention Deficit Disorder, Other Female Reproductive Disorders: Other Other Medical History: pt has history of multiple fractures in her life -uses saboxone and neurontin for chronic pain Hep C, bipolar - Past Surgical History Past Surgical History: Yes Musculoskeletal: Orthopedic Surgery Female Surgical History: Tubal Ligation Other Surgical History: right knee - Social History Smoking Status: Light tobacco smoker How long have you smoked: 15 Exposure to second hand smoke: No Drug Use: none Patient Lives Alone: No - Female History Hx Last Menstrual Period: unknown - Nursing Vital Signs Nursing Vital Signs: Initial Vital Signs Temperature 97.9 F 05/12/17 19:01 Pulse Rate 72 05/12/17 19:01 Respiratory Rate 18 05/12/17 19:01 Blood Pressure 129/80 05/12/17 19:01 O2 Sat by Pulse Oximetry 99 05/12/17 19:01 Pain Scale Pain Intensity 0 - Physical Exam General Appearance: alert Eye Exam: PERRL/EOMI, eyes nml inspection Ears, Nose, Throat Exam: TMs normal, pharynx normal, moist mucous membranes Neck Exam: normal inspection Respiratory Exam: lungs clear Cardiovascular Exam: normal heart sounds Gastrointestinal/Abdomen Exam: soft, normal bowel sounds Back Exam: normal range of motion Extremity Exam: normal inspection, normal range of motion, No pedal edema Neurologic Exam: alert, oriented x 3, cooperative Skin Exam: warm, dry SpO2 Interpretation: normal SpO2: 99 Oxygen Delivery: Room Air - Course Nursing assessment & vital signs reviewed: Yes Ordered Tests: Active Orders 24 hr Category Date Time Status Clean Catch Urine Specimen STAT Care 05/12/17 19:27 Active Psychiatric Evaluation STAT Care 05/12/17 19:25 Active ACETAMINOPHEN Stat Lab 05/12/17 19:41 Completed CBC W DIFF Stat Lab 05/12/17 19:41 Completed CMP Stat Lab 05/12/17 19:41 Completed CULTURE,URINE Stat Lab 05/12/17 19:45 Received ETHYL ALCOHOL Stat Lab 05/12/17 19:41 Completed HCG QUALITATIVE,SERUM Stat Lab 05/12/17 19:41 Completed SALICYLATE Stat Lab 05/12/17 19:41 Completed UA W/ MICROSCOPIC Stat Lab 05/12/17 19:45 Completed Urine Triage Profile Stat Lab 05/12/17 19:45 Completed Medication Summary Discontinued Medications Generic Name Dose Route Start Last Admin Trade Name Freq PRN Reason Stop Dose Admin Ceftriaxone Sodium 1,000 mg 05/12/17 20:15 05/12/17 20:29 Rocephin 1000 Mg Inj IM 05/12/17 20:16 1,000 mg STAT ONE Administration Ceftriaxone Sodium Confirm 05/12/17 20:22 Rocephin 1000 Mg Inj Administered 09/27/17 20:23 Dose 1,000 mg .ROUTE .STK-MED ONE Lab/Rad Data: Laboratory Result Diagrams 05/12/17 19:41 05/12/17 19:41 Laboratory Results 05/12/17 05/12/17 05/12/17 Range/Units 19:45 19:45 19:41 WBC (4.0-10.5) K/mm3 RBC (4.1-5.4) M/mm3 Hgb (12.0-16.0) gm/dl Hct (35-47) % MCV (78-100) fl MCH (26-32) pg MCHC (32-36) g/dl RDW (11.5-14.0) % Plt Count (150-450) K/mm3 MPV (6-9.5) fl Gran % (36.0-66.0) % Lymphocytes % (24.0-44.0) % Monocytes % (0.0-12.0) % Eosinophils % (0.00-5.0) % Basophils % (0.0-0.4) % Basophils # (0-0.4) Sodium (136-145) mEq/L Potassium (3.5-5.1) mEq/L Chloride (98-107) mEq/L Carbon Dioxide (21-32) mEq/L Anion Gap (5-15) MEQ/L BUN (9-20) mg/dL Creatinine (0.55-1.30) mg/dl Estimated GFR ML/MIN Glucose (70-110) MG/DL Calcium (8.5-10.1) mg/dL Total Bilirubin (0.2-1.0) mg/dL AST (15-37) U/L ALT (12-78) U/L Alkaline Phosphatase (46-116) U/L Serum Total Protein (6.4-8.2) gm/dL Albumin (3.4-5.0) g/dL Serum , Qual NEGATIVE (Negative) Ur Collection Type VOID Urine Color YELLOW (YELLOW) Urine Appearance CLOUDY (CLEAR) Urine pH 6.0 (5-6) Ur Specific Thebes 1.020 (1.005-1.025) Urine Protein NEGATIVE (Negative) Urine Ketones SMALL (NEGATIVE) Urine Blood 50 (0-5) Avinash/ul Urine Nitrite POSITIVE (NEGATIVE) Urine Bilirubin MODERATE (NEGATIVE) Urine Urobilinogen 4 (0-1) mg/dL Ur Leukocyte Esterase TRACE (NEGATIVE) Urine Microscopic RBC 2-5 (0-2) /HPF Urine Microscopic WBC 10-15 (0-5) /HPF Ur Epithelial Cells MODERATE (FEW) /HPF Urine Bacteria PACKED (NEGATIVE) /HPF Urine Mucus MODERATE (NEGATIVE) /HPF Urine Glucose NEGATIVE (NEGATIVE) mg/dL Salicylates (2.8-20.0) mg/dl Urine Opiates Level NEG. (NEGATIVE) Ur Methadone NEG. (NEGATIVE) Acetaminophen (10-30) ug/ml Urine Barbiturates NEG. (NEGATIVE) Ur Phencyclidine (PCP) NEG. (NEGATIVE) Urine Amphetamine NEG. (NEGATIVE) U Benzodiazepine Level POS. (NEGATIVE) Urine Cocaine NEG. (NEGATIVE) Urine Marijuana (THC) NEG. (NEGATIVE) Ethyl Alcohol (0.00-0.01) % Specimen Received 05/12/17192905/12/17 05/12/17 Range/Units 19:41 19:41 WBC 7.4 (4.0-10.5) K/mm3 RBC 4.60 (4.1-5.4) M/mm3 Hgb 13.8 (12.0-16.0) gm/dl Hct 40.8 (35-47) % MCV 88.7 (78-100) fl MCH 30.0 (26-32) pg MCHC 33.8 (32-36) g/dl RDW 13.0 (11.5-14.0) % Plt Count 225 (150-450) K/mm3 MPV 9.6 H (6-9.5) fl Gran % 53.9 (36.0-66.0) % Lymphocytes % 39.2 (24.0-44.0) % Monocytes % 5.1 (0.0-12.0) % Eosinophils % 1.4 (0.00-5.0) % Basophils % 0.4 (0.0-0.4) % Basophils # 0.03 (0-0.4) Sodium 143 (136-145) mEq/L Potassium 4.1 (3.5-5.1) mEq/L Chloride 107 (98-107) mEq/L Carbon Dioxide 28.9 (21-32) mEq/L Anion Gap 11.5 (5-15) MEQ/L BUN 14 (9-20) mg/dL Creatinine 0.74 (0.55-1.30) mg/dl Estimated GFR > 60 ML/MIN Glucose 92 (70-110) MG/DL Calcium 8.9 (8.5-10.1) mg/dL Total Bilirubin 0.50 (0.2-1.0) mg/dL AST 13 L (15-37) U/L ALT 18 (12-78) U/L Alkaline Phosphatase 44 L (46-116) U/L Serum Total Protein 7.0 (6.4-8.2) gm/dL Albumin 3.7 (3.4-5.0) g/dL Serum , Qual (Negative) Ur Collection Type Urine Color (YELLOW) Urine Appearance (CLEAR) Urine pH (5-6) Ur Specific Thebes (1.005-1.025) Urine Protein (Negative) Urine Ketones (NEGATIVE) Urine Blood (0-5) Avinash/ul Urine Nitrite (NEGATIVE) Urine Bilirubin (NEGATIVE) Urine Urobilinogen (0-1) mg/dL Ur Leukocyte Esterase (NEGATIVE) Urine Microscopic RBC (0-2) /HPF Urine Microscopic WBC (0-5) /HPF Ur Epithelial Cells (FEW) /HPF Urine Bacteria (NEGATIVE) /HPF Urine Mucus (NEGATIVE) /HPF Urine Glucose (NEGATIVE) mg/dL Salicylates < 2.8 L (2.8-20.0) mg/dl Urine Opiates Level (NEGATIVE) Ur Methadone (NEGATIVE) Acetaminophen < 2.0 L (10-30) ug/ml Urine Barbiturates (NEGATIVE) Ur Phencyclidine (PCP) (NEGATIVE) Urine Amphetamine (NEGATIVE) U Benzodiazepine Level (NEGATIVE) Urine Cocaine (NEGATIVE) Urine Marijuana (THC) (NEGATIVE) Ethyl Alcohol < 0.010 (0.00-0.01) % Specimen Received - Departure Time of Disposition: 21:42 Departure Disposition: Home Clinical Impression: UTI, HALLUCINATIONS Condition: Stable Critical Care Time: No Referrals: ALYSSA VALDOVINOS [Primary Care Provider] - Instructions: Urinary Tract Infection (UTI) Additional Instructions: FOLLOW UP WITH PRIVATE DOCTOR TOMORROW. Prescriptions: Smz/Tmp Ds Tablet [Bactrim Ds Tablet] 1 udtab PO BID #20 tablet
[2017-05-12 19:46] LABS: BASOPHIL % 0.4 % (0.0-0.4); Eosinophil % 1.4 % (0.00-5.0); Granulocytes % 53.9 % (36.0-66.0); Lymphocytes % 39.2 % (24.0-44.0); Mean Cell Volume 88.7 fl (78-100); Mean Platelet Volume 9.6 fl (6-9.5); Monocytes % 5.1 % (0.0-12.0); Platelet Count 225 K/mm3 (150-450); White Blood Count 7.4 K/mm3 (4.0-10.5)
[2017-05-12 19:58] LABS: Collection Type VOID; Leukocyte Esterase TRACE (NEGATIVE)
[2017-05-12 19:59] LABS: ADD URINE CULTURE? YES (NO); Bacteria PACKED /HPF (NEGATIVE); Bilirubin MODERATE (NEGATIVE); Blood 50 Ery/ul (0-5); COMPLETE URINE MICROSCOPIC? YES; Epithelial Cells MODERATE /HPF (FEW); Glucose NEGATIVE (NEGATIVE); Mucus MODERATE /HPF (NEGATIVE)
[2017-05-12 20:14] LABS: ALBUMIN 3.7 g/dL (3.4-5.0); ALKALINE PHOSPHATASE 44 U/L (46-116); ANION GAP 11.5 MEQ/L (5-15); BLOOD UREA NITROGEN 14 mg/dL (9-20); CHLORIDE 107 mEq/L (98-107); Carbon Dioxide 28.9 mEq/L (21-32); ETHYL ALCOHOL < 0.010 % (0.00-0.01); Glucose 92 MG/DL (70-110); Potassium 4.1 mEq/L (3.5-5.1); SGOT/AST 13 U/L (15-37); SGPT/ALT 18 U/L (12-78); SODIUM 143 mEq/L (136-145)
[2017-05-12] MEDS ORDERED: Rocephin 1000 MG INJ IM ONE (20:15)
[2017-05-12 20:16] LABS: ACETAMINOPHEN < 2.0 ug/ml (10-30)
[2017-05-12] MEDS ORDERED: Rocephin 1000 MG INJ ONE (20:22)
[2017-05-12 22:00] VITALS: BP 93/51; PULSE 70; O2SAT 98
[2017-05-12] MEDS ORDERED: XYLOCAINE 1% HCL 20 ML MDV ONE (22:29)
== END 2017-05-12 22:14 | disposition home or self-care (01) ==
LOC: ED 18:59
DX: N39.0 Urinary tract infection, site not specified (principal); R44.3 Hallucinations, unspecified
CPT/HCPCS: 36415; 80053; 80307; 81000; 84703; 85025; 87077; 87086; 87186; 96372; 99284; G0481; J0696

== ENCOUNTER 2017-05-13 01:12 | Emergency (ER) | payer OTHER ==
--- NOTE | 2017-05-13 01:29 | ERPHSYRPT ---
- History of Present Illness Time Seen by Provider: 05/13/17 01:14 Source: patient Exam Limitations: no limitations Physician History: PT HAS BEEN HAVING VISUAL AND AUDITORY HALLUCINATIONS FOR THE PAST YEAR AND HAS NOT BEEN TAKING HER MEDICATIONS. PT DENIES CHEST PAIN, SHORTNESS OF AIR, FEVER, VOMITING, HEADACHE. PT WAS IN [facility] ER YESTERDAY AND DISCHARGED WITH A UTI WITH RX FOR BACTRIM DS. PT REFUSED [facility] YESTERDAY BUT NOW IS WILLING TO PARTICIPATE IN TELEMENTAL CONSULTATION. Allergies/Adverse Reactions: ibuprofen [From Motrin] Allergy (Verified 05/13/17 01:26) NSAIDS (Non-Steroidal Anti-Inflamma Allergy (Verified 05/13/17 01:26) Hx Tetanus, Diphtheria Vaccination/Date Given: Yes (up to date) Hx Influenza Vaccination/Date Given: No Hx Pneumococcal Vaccination/Date Given: No - Review of Systems Respiratory: No Dyspnea Cardiac: No Chest Pain Abdominal/Gastrointestinal: No Abdominal Pain, No Vomiting Neurological: No Headache Psychological: Hallucinations, No Suicidal Ideations, No Homicidal Ideations All Other Systems: Reviewed and Negative - Past Medical History Pertinent Past Medical History: Yes Neurological History: No Pertinent History ENT History: No Pertinent History Cardiac History: No Pertinent History Respiratory History: No Pertinent History Endocrine Medical History: No Pertinent History Musculoskeletal History: No Pertinent History GI Medical History: No Pertinent History, Hepatitis History: No Pertinent History Psycho-Social History: Attention Deficit Disorder, Other Female Reproductive Disorders: Other Other Medical History: pt has history of multiple fractures in her life -uses saboxone and neurontin for chronic pain Hep C, bipolar - Past Surgical History Past Surgical History: Yes Musculoskeletal: Orthopedic Surgery Female Surgical History: Tubal Ligation Other Surgical History: right knee - Social History Smoking Status: Light tobacco smoker How long have you smoked: 15 Exposure to second hand smoke: No Drug Use: none Patient Lives Alone: No - Nursing Vital Signs Nursing Vital Signs: Initial Vital Signs Temperature 97.6 F 05/13/17 01:13 Pulse Rate 55 L 05/13/17 01:13 Respiratory Rate 16 05/13/17 01:13 Blood Pressure 116/68 05/13/17 01:13 O2 Sat by Pulse Oximetry 100 05/13/17 01:13 Pain Scale Pain Intensity 0 - Physical Exam General Appearance: alert Eye Exam: PERRL/EOMI Ears, Nose, Throat Exam: TMs normal, pharynx normal, moist mucous membranes Neck Exam: normal inspection Respiratory Exam: lungs clear Cardiovascular Exam: normal heart sounds Gastrointestinal/Abdomen Exam: soft, normal bowel sounds Back Exam: normal range of motion Extremity Exam: normal inspection, No pedal edema Neurologic Exam: alert, cooperative Skin Exam: warm, dry - Course Nursing assessment & vital signs reviewed: Yes Ordered Tests: Active Orders 24 hr Category Date Time Status Psychiatric Evaluation STAT Care 05/13/17 01:21 Active Urine Triage Profile Stat Lab 05/13/17 01:48 Completed Lab/Rad Data: Laboratory Results 05/13/17 Range/Units 01:48 Urine Opiates Level NEG. (NEGATIVE) Ur Methadone NEG. (NEGATIVE) Urine Barbiturates NEG. (NEGATIVE) Ur Phencyclidine (PCP) NEG. (NEGATIVE) Urine Amphetamine NEG. (NEGATIVE) U Benzodiazepine Level POS. (NEGATIVE) Urine Cocaine NEG. (NEGATIVE) Urine Marijuana (THC) NEG. (NEGATIVE) - Departure Time of Disposition: 05:58 Departure Disposition: Home Clinical Impression: HALLUCINATIONS, UTI Condition: Stable Critical Care Time: No Referrals: ALYSSA VALDOVINOS [Primary Care Provider] - Instructions: Urinary Tract Infection (UTI) Additional Instructions: FOLLOW UP WITH PRIVATE DOCTOR TOMORROW.
[2017-05-13 03:59] VITALS: O2SAT 96
[2017-05-13 07:21] VITALS: BP 116/65; PULSE 70
== END 2017-05-13 07:21 | disposition home or self-care (01) ==
LOC: ED 01:12
DX: R44.3 Hallucinations, unspecified (principal); N39.0 Urinary tract infection, site not specified; Z79.891 Long term (current) use of opiate analgesic; Z79.899 Other long term (current) drug therapy
CPT/HCPCS: 80307; 90791; 99282; Q3014

== ENCOUNTER 2017-05-13 17:18 | Emergency (ER) | payer OTHER ==
[2017-05-13 17:30] VITALS: BP 125/83; PULSE 88
[2017-05-13] MEDS ORDERED: Sodium Chloride 0.9% 1000 ML 1,000 ML IV SCH (17:30)
--- NOTE | 2017-05-13 17:32 | ERPHSYRPT ---
- History of Present Illness Time Seen by Provider: 05/13/17 17:24 Source: patient, EMS, old records Exam Limitations: no limitations Physician History: patient brought in by EMS for possible OD - " I ground up some Fentanyl and smoked it"; EMS found no evidence of drug use; she is very cooperative; denies any alcohol or other drugs; was seen early this am and was released to follow up at as an OP; she stated she went but they had nothing to offer; she is here frequently and this is like her seventh visit this month; When asked how we could help she said she was hungry so we ordered a meal for her; She denies any suicidal or homicidal ideation; she denies any syncope;seizures or palpatations; denies Timing/Duration: today, hour(s) (1 hr or less ago) Severity: mild Modifying Factors: Improves With: medication (possible fentanyl) Associated Symptoms: malaise, No nausea, No vomiting, No abdominal pain, No shortness of breath, No diaphoresis, No cough, No chills, No chest pain, No fever, No headaches, No syncope, No seizure Allergies/Adverse Reactions: ibuprofen [From Motrin] Allergy (Verified 05/13/17 01:26) NSAIDS (Non-Steroidal Anti-Inflamma Allergy (Verified 05/13/17 01:26) Hx Tetanus, Diphtheria Vaccination/Date Given: Yes (up to date) Hx Influenza Vaccination/Date Given: No Hx Pneumococcal Vaccination/Date Given: No - Review of Systems Constitutional: Malaise, No Fever, No Night Sweats, No Weight Loss Eyes: No Photophobia, No Vision Changes, No Double Vision Ears, Nose, & Throat: No Ear Pain, No Epistaxis, No Throat Swelling, No Painful Swallowing Respiratory: No Cough, No Dyspnea, No Wheezing Cardiac: No Chest Pain, No Palpitations, No Syncope Abdominal/Gastrointestinal: No Abdominal Pain, No Nausea, No Vomiting, No Diarrhea Genitourinary Symptoms: No Dysuria, No Incontinence, No , No Vaginal Discharge Musculoskeletal: No Arthralgias, No Back Pain, No Fall, No Injury, No Myalgias Neurological: No Dizziness, No Focal Weakness, No Headache, No Seizure, No Vertigo Psychological: Drug Abuse, Depression, Emotional Lability, No Alcohol Abuse, No Suicidal Ideations, No Homicidal Ideations, No Hallucinations Endocrine: No Symptoms Hematologic/Lymphatic: No Symptoms Immunological/Allergic: No Symptoms - Past Medical History Pertinent Past Medical History: Yes Neurological History: No Pertinent History ENT History: No Pertinent History Cardiac History: No Pertinent History Respiratory History: No Pertinent History Endocrine Medical History: No Pertinent History Musculoskeletal History: No Pertinent History GI Medical History: No Pertinent History, Hepatitis History: No Pertinent History Psycho-Social History: Attention Deficit Disorder, Other Female Reproductive Disorders: Other Other Medical History: pt has history of multiple fractures in her life -uses saboxone and neurontin for chronic pain Hep C, bipolar - Past Surgical History Past Surgical History: Yes Musculoskeletal: Orthopedic Surgery Female Surgical History: Tubal Ligation Other Surgical History: right knee - Social History Smoking Status: Light tobacco smoker How long have you smoked: 15 Exposure to second hand smoke: No Alcohol Use: None Drug Use: heroin, other (fentanyl) Patient Lives Alone: No Significant Family History: no pertinent family hx - Female History Hx Now: No - Nursing Vital Signs Nursing Vital Signs: Initial Vital Signs Pulse Rate 88 05/13/17 17:20 Respiratory Rate 18 05/13/17 17:20 Blood Pressure 125/83 05/13/17 17:20 O2 Sat by Pulse Oximetry 99 05/13/17 17:20 Pain Scale Pain Intensity 0 - Physical Exam General Appearance: no apparent distress, alert, thin Eye Exam: PERRL/EOMI (6-7 mm), eyes nml inspection, other (fundi benign; no nystagmus; ), No photophobia Ears, Nose, Throat Exam: normal ENT inspection, TMs normal, pharynx normal, moist mucous membranes Neck Exam: normal inspection, non-tender, supple, full range of motion, No meningismus, No JVD, No lymphadenopathy Respiratory Exam: normal breath sounds, lungs clear, airway intact, No chest tenderness, No respiratory distress, No rhonchi, No wheezing Cardiovascular Exam: regular rate/rhythm, normal heart sounds, normal peripheral pulses, tachycardia (112), capillary refill <2 sec, No murmur, No edema Gastrointestinal/Abdomen Exam: soft, normal bowel sounds, No tenderness, No guarding, No rebound, No organomegaly Pelvic Exam: deferred Rectal Exam: deferred Back Exam: normal inspection, normal range of motion, No CVA tenderness, No vertebral tenderness, No rash Extremity Exam: normal inspection, normal range of motion, No janine's sign, No pedal edema Neurologic Exam: alert, oriented x 3, cooperative, flume maker 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 tested, nml cerebellar function, nml station & gait, sensation nml, depressed mood/ affect, No normal mood/affect (flat affect) Skin Exam: normal color, warm, dry, No rash, No cyanosis, No other SpO2 Interpretation: normal SpO2: 98 Oxygen Delivery: Room Air Ordered Tests: Active Orders 24 hr Category Date Time Status NPO (ED) STAT Care 05/13/17 17:25 Active Pulse Oximetry (ED) STAT Care 05/13/17 17:25 Active UA W/RFX UR CULTURE Stat Lab 05/13/17 17:25 Ordered Urine Triage Profile Stat Lab 05/13/17 17:25 Ordered Medication Summary Generic Name Dose Route Start Last Admin Trade Name Freq PRN Reason Stop Dose Admin Sodium Chloride 1,000 mls @ 50 mls/hr 05/13/17 17:30 Sodium Chloride 0.9% 1000 Ml IV 06/12/17 17:29 .Q20H YONAS - Progress Progress: unchanged, re-examined Progress Note: 05/13/17 17:37 patient presents and is exhibiting no signs of fentanyl use recently; when asked what we could do she stated" I'm hungry and want something to eat"; a tray was ordered for her; she later decided to leave AMA before we could do anything else; she refused to sign any permission to treat or other documents; we informed her she was welcome to stay and that we had ordered food for her; while waiting to be discharged she dialed 911 to report she had outstanding warrents and wanted the police notified; she is oriented and cooperative; she is of sound mind and does not exhibit any signs of acute drug ingestion; or other use; she is not suicidal or homicidal; she decided to eat her food and was reapproached about being treated, but continues to refuse treatment; she will be allowed to sign out ama and will be advised to return if desires treatment. 05/13/17 17:46 rechecked after eating; she tahnked us for the food; we asked if there was anything else we could do for her; she stated no and was released Counseled pt/family regarding: diagnosis, need for follow-up - Departure Time of Disposition: 17:47 Departure Disposition: Home, AMA Clinical Impression: Depressed affect Condition: Stable Critical Care Time: No Referrals: ALYSSA VALDOVINOS [Primary Care Provider] - Additional Instructions: Follow-up with family doctor as directed. Call for appointment. Return if any problems. If you smoke please stop. Call or follow up with your family doctor for assistance if you need it to stop. Please wear your seatbelt when driving. Have a nice day. Thank you for allowing us to participate in your care today. :o) Dr Blu Sethi
[2017-05-13 17:35] VITALS: O2SAT 98
== END 2017-05-13 17:54 | disposition left against medical advice (07) ==
LOC: ED 17:18
DX: F32.9 Major depressive disorder, single episode, unspecified (principal)
CPT/HCPCS: 99281

== ENCOUNTER 2017-07-08 19:07 | Emergency (ER) | payer OTHER ==
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
[2017-07-08 20:05] LABS: BASOPHIL % 0.3 % (0.0-0.4); Eosinophil % 3.3 % (0.00-5.0); Granulocytes % 63.3 % (36.0-66.0); Lymphocytes % 28.1 % (24.0-44.0); Mean Cell Volume 92.3 fl (78-100); Mean Corpuscular Hemoglobin 30.4 pg (26-32); Mean Platelet Volume 9.6 fl (6-9.5); Platelet Count 202 K/mm3 (150-450); Red Blood Count 4.15 M/mm3 (4.1-5.4); Red Cell Distribution Width 13.1 % (11.5-14.0)
[2017-07-08 20:26] LABS: Bilirubin NEGATIVE (NEGATIVE); Collection Type VOID; Glucose NEGATIVE (NEGATIVE); Leukocyte Esterase NEGATIVE (NEGATIVE)
[2017-07-08 20:27] LABS: ADD URINE CULTURE? NO (NO); Blood NEGATIVE Ery/ul (0-5); COMPLETE URINE MICROSCOPIC? NO
[2017-07-08 20:30] LABS: ALBUMIN 3.3 g/dL (3.4-5.0); ALKALINE PHOSPHATASE 54 U/L (46-116); ANION GAP 14.1 MEQ/L (5-15); BLOOD UREA NITROGEN 20 mg/dL (9-20); CHLORIDE 107 mEq/L (98-107); Carbon Dioxide 26.1 mEq/L (21-32); Glucose 93 MG/DL (70-110); LIPASE 99 U/L (73-393); Potassium 4.2 mEq/L (3.5-5.1); SGOT/AST 10 U/L (15-37); SGPT/ALT 18 U/L (12-78); SODIUM 143 mEq/L (136-145); Total Protein 6.9 gm/dL (6.4-8.2)
[2017-07-08 21:55] VITALS: BP 106/70; PULSE 74; O2SAT 98
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
== END 2017-07-08 21:54 | disposition home or self-care (01) ==
LOC: ED 19:07
DX: S13.4XXA Sprain of ligaments of cervical spine, initial encounter (principal); S39.012A Strain of muscle, fascia and tendon of lower back, initial encounter; V49.40XA Driver injured in collision with unspecified motor vehicles in traffic accident, initial encounter; M54.5 Low back pain; S00.93XA Contusion of unspecified part of head, initial encounter; R51 Headache; M54.2 Cervicalgia; M54.6 Pain in thoracic spine
CPT/HCPCS: 36415; 70450; 71020; 72125; 72131; 80053; 81002; 82150; 83605; 83690; 84703; 85025; 99284

== ENCOUNTER 2018-04-01 10:28 | Emergency (ER) | payer OTHER | END 2018-04-01 10:40 | disposition left against medical advice (07) | LOC: ED 10:28 | DX: Z53.21 Procedure and treatment not carried out due to patient leaving prior to being seen by health care provider (principal) | CPT/HCPCS: 87070; 87077; 87186; 99281; 99283; 99284; A9270-GY ==

== ENCOUNTER 2018-04-01 15:31 | Emergency (ER) | payer OTHER ==
[2018-04-01 16:06] VITALS: BP 162/115
[2018-04-01] MEDS ORDERED: Ciloxan OPHTH OP ONE (16:19)
[2018-04-01] MEDS ORDERED: Ciloxan OPHTH ONE (16:23)
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
== END 2018-04-01 16:48 | disposition home or self-care (01) ==
LOC: ED 15:31
DX: H10.9 Unspecified conjunctivitis (principal); H01.002 Unspecified blepharitis right lower eyelid
CPT/HCPCS: 87070; 87077; 87186; 99281; 99283; A9270-GY

== ENCOUNTER 2018-04-02 17:04 | Emergency (ER) | payer OTHER ==
[2018-04-02 17:16] VITALS: BP 138/103; PULSE 104; O2SAT 99
[2018-04-02] MEDS ORDERED: Sodium Chloride 0.9% 1000 ML 1,000 ML IV STA (17:28)
--- NOTE | 2018-04-02 17:35 | ERPHSYRPT ---
- History of Present Illness Time Seen by Provider: 04/02/18 17:25 Source: patient Exam Limitations: other (patient is reluctant to answer questions) Patient Subjective Stated Complaint: pt was found on side of road with hosptial arm band on her from yesterday, police where called for a welfare check, she would not talk to them so ambulance called and pt brought in, pt was here yesterday for redness and swelling to right eye Triage Nursing Assessment: pt arriver per ambulance, eyes open but refuses to talk to staff.pt has long history of mental illness, she has matting and redness to right eye, Physician History: This is a 32-year-old white female was seen here yesterday with the complaint of swelling of her right lower eyelid right conjunctivitis and a drainage from her right eye. When she was evaluated patient refused to answer questions and only answered a few. Patient was oriented and answered selected questions. She was given Ciloxan drops 1-2 drops in the right eye 4 times a day for 5 days. After discharge from the emergency room patient began wandering through the hospital and was escorted out by the police. Patient apparently was found by the police today sitting by the side of the road with her hospital band on Patient denies pain she denies taking drugs she denies using any alcohol she denies suicidal ideation. Many questions I ask her she just will not answer. Past medical history includes hepatitis, ADD, multiple fractures, chronic pain, bipolar disorder. Past surgical history includes orthopedic surgery, tubal ligation, right knee surgery. Timing/Duration: today Severity: moderate Modifying Factors: Improves With: nothing Associated Symptoms: No nausea, No vomiting, No abdominal pain, No shortness of breath, No heartburn, No diaphoresis, No cough, No chills, No chest pain, No fever, No headaches, No loss of appetite, No malaise, No rash, No syncope, No seizure, No weakness Allergies/Adverse Reactions: No Known Drug Allergies Allergy (Verified 04/02/18 17:16) Hx Tetanus, Diphtheria Vaccination/Date Given: (unknown) Hx Influenza Vaccination/Date Given: (unknown) Hx Pneumococcal Vaccination/Date Given: No Immunizations Up to Date: Yes - Review of Systems Constitutional: No Symptoms Eyes: Other (Patient with conjunctivitis right eye blepharitis right eye on Ciloxandrop since yesterday) Ears, Nose, & Throat: No Symptoms Respiratory: No Cough, No Dyspnea Cardiac: No Chest Pain, No Edema, No Syncope Abdominal/Gastrointestinal: No Abdominal Pain, No Nausea, No Vomiting, No Diarrhea Genitourinary Symptoms: No Dysuria Musculoskeletal: No Back Pain, No Neck Pain Skin: No Rash Neurological: No Dizziness, No Focal Weakness, No Sensory Changes Psychological: No Symptoms Endocrine: No Symptoms All Other Systems: Reviewed and Negative - Past Medical History Pertinent Past Medical History: Yes Neurological History: No Pertinent History ENT History: No Pertinent History Cardiac History: No Pertinent History Respiratory History: No Pertinent History Endocrine Medical History: No Pertinent History Musculoskeletal History: No Pertinent History GI Medical History: No Pertinent History, Hepatitis History: No Pertinent History Psycho-Social History: Attention Deficit Disorder, Other Female Reproductive Disorders: Other Other Medical History: pt has history of multiple fractures in her life -uses suboxone and neurontin for chronic pain Hep C, bipolar - Past Surgical History Past Surgical History: Yes Musculoskeletal: Orthopedic Surgery Female Surgical History: Tubal Ligation Other Surgical History: right knee - Social History Smoking Status: Unknown if ever smoked How long have you smoked: unknown Exposure to second hand smoke: (unknown) Alcohol Use: None Drug Use: heroin, other Patient Lives Alone: No Significant Family History: no pertinent family hx - Female History Hx Last Menstrual Period: unknown Hx Now: No - Nursing Vital Signs Nursing Vital Signs: Initial Vital Signs Temperature 97.0 F 04/02/18 17:07 Pulse Rate 104 H 04/02/18 17:07 Respiratory Rate 14 04/02/18 17:07 Blood Pressure 138/103 04/02/18 17:07 O2 Sat by Pulse Oximetry 99 04/02/18 17:07 Pain Scale Pain Intensity 0 - Physical Exam General Appearance: other (well-developed well-nourished white female patient reluctant to answer questions, denies drug use, alcohol use, or suicidal ideation) Eye Exam: PERRL/EOMI, other (fundi are unremarkable, right conjunctiva erythematous with dried yellow drainage, right lower eyelid is edematous but markedly improved from yesterday.) Ears, Nose, Throat Exam: normal ENT inspection, TMs normal, pharynx normal, moist mucous membranes Neck Exam: normal inspection, non-tender, supple, full range of motion Respiratory Exam: normal breath sounds, lungs clear, No respiratory distress Cardiovascular Exam: regular rate/rhythm, normal heart sounds, normal peripheral pulses Gastrointestinal/Abdomen Exam: soft, normal bowel sounds, No tenderness, No mass Back Exam: normal inspection, normal range of motion, No CVA tenderness, No vertebral tenderness Extremity Exam: normal inspection, normal range of motion, pelvis stable Neurologic Exam: alert, oriented x 3, cooperative, basting marker 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 tested, normal mood/affect, nml cerebellar function, nml station & gait, sensation nml, No motor deficits Skin Exam: normal color, warm, dry, No rash SpO2 Interpretation: normal (99% Getting intermittent ) SpO2: 99 Oxygen Delivery: Room Air - Course Nursing assessment & vital signs reviewed: Yes Ordered Tests: Active Orders 24 hr Category Date Time Status EKG-ER Only STAT Care 04/02/18 17:28 Active IV Insertion STAT Care 04/02/18 17:28 Active ACETAMINOPHEN Stat Lab 04/02/18 17:28 Ordered CBC W DIFF Stat Lab 04/02/18 17:28 Ordered CMP Stat Lab 04/02/18 17:28 Ordered ETHYL ALCOHOL Stat Lab 04/02/18 17:28 Ordered HCG QUALITATIVE,SERUM Stat Lab 04/02/18 Ordered SALICYLATE Stat Lab 04/02/18 17:28 Ordered UA W/RFX UR CULTURE Stat Lab 04/02/18 17:28 Uncollected Urine Triage Profile Stat Lab 04/02/18 17:28 Uncollected Medication Summary Discontinued Medications Generic Name Dose Route Start Last Admin Trade Name Freq PRN Reason Stop Dose Admin Sodium Chloride 1,000 mls @ 999 mls/hr 04/02/18 17:28 04/02/18 18:32 Sodium Chloride 0.9% 1000 Ml IV 04/02/18 18:28 Not Given .Q1H1M STA Thiamine HCl 100 mg 04/02/18 17:36 04/02/18 18:32 Thiamine 200 Mg/2 Ml IV 04/02/18 17:37 Not Given STAT ONE - Progress Progress: improved Progress Note: 04/02/18 19:09 32-year-old white female seen yesterday for conjunctivitis and left right is of the right eye. Patient reluctant to speak to staff. She does state that she is not using alcohol not using drugs and does not want to harm herself. There was concern that the patient might possibly need psychiatric evaluation and or metabolic evaluation and fluids. However patient refuses any labs. Patient is however able to ask for food and she is currently eating now. Will recommend that patient follow-up with her family doctor. - Departure Time of Disposition: 19:10 Departure Disposition: Home Clinical Impression: Conjunctivitis undergoing treatment, Well-being check Condition: Fair Critical Care Time: No Referrals: ALYSSA VALDOVINOS [Primary Care Provider] - Additional Instructions: Continue Ciloxan drops right eye one to 2 drops 4 times a day for 5 days as prescribed yesterday. Plenty of fluids. Follow-up with your family doctor. You may return at any time for reevaluation. Return for acute distress or for severe symptoms.
[2018-04-02] MEDS ORDERED: THIAMINE 200 MG/2 ML IV ONE (17:36)
== END 2018-04-02 19:35 | disposition home or self-care (01) ==
LOC: ED 17:04
DX: H10.9 Unspecified conjunctivitis (principal); F31.9 Bipolar disorder, unspecified; B19.20 Unspecified viral hepatitis C without hepatic coma
CPT/HCPCS: 99284

== ENCOUNTER 2018-04-03 13:25 | Emergency (ER) | payer OTHER ==
--- NOTE | 2018-04-03 14:14 | ERPHSYRPT ---
- History of Present Illness Time Seen by Provider: 04/03/18 13:39 Source: patient Exam Limitations: clinical condition Patient Subjective Stated Complaint: pt here for wondering around town today and ambulance callled for a welfare check. pt did the same thing yesterday, she has been seen in er on 04/01 and 04/02. she as a infection to right eye and states she is not taking her meds for it. Triage Nursing Assessment: pt alert, but will only say one word sentences, she only answers certian questions, pt denies being suicidal. and states she is a place to go if dc to home. pt has changed clothes since yesterday, Physician History: PATIENT WITH A HISTORY OF BIPOLAR DISORDER, HOSPITALIZED FOR DRUG OVERDOSE 2017 [address] WANDERING DOWN THE STREET, POLICE CALLED FOR WELFARE CHECK. PATIENT DENIES COMPLAINTS. HAS NOT FILLED PRESCRIPTION FOR RIGHT LOWER EYE LID STYE. THIS IS HER 4TH EMERGENCY ROOM VISIT IN 3 DAYS. DENIES HEADACHE, CHEST PAIN, DYSPNEA, AUDITORY OR VISUAL HALLUCINATIONS, SUICIDAL OR HOMOCIDAL THOUGHTS. Timing/Duration: day(s) Severity: mild Modifying Factors: Improves With: other (SWELLING AND DRAINAGE FROM RIGHT LOWER EYE LID) Associated Symptoms: denies symptoms Allergies/Adverse Reactions: No Known Drug Allergies Allergy (Verified 04/03/18 13:44) Hx Tetanus, Diphtheria Vaccination/Date Given: (unknown) Hx Influenza Vaccination/Date Given: No Hx Pneumococcal Vaccination/Date Given: No Immunizations Up to Date: Yes - Review of Systems Constitutional: No Fever, No Chills Eyes: No Symptoms, Discharge, Other (LOWER EYE LID SWELLING AND DRAINAGE) Ears, Nose, & Throat: No Symptoms Respiratory: No Symptoms, No Cough, No Dyspnea Cardiac: No Symptoms, No Chest Pain, No Edema, No Syncope Abdominal/Gastrointestinal: No Abdominal Pain, No Nausea, No Vomiting, No Diarrhea Genitourinary Symptoms: No Symptoms, No Dysuria Musculoskeletal: No Symptoms, No Back Pain, No Neck Pain Skin: No Rash Neurological: No Dizziness, No Focal Weakness, No Sensory Changes Psychological: No Symptoms Endocrine: No Symptoms All Other Systems: Reviewed and Negative - Past Medical History Pertinent Past Medical History: Yes Neurological History: No Pertinent History ENT History: No Pertinent History Cardiac History: No Pertinent History Respiratory History: No Pertinent History Endocrine Medical History: No Pertinent History Musculoskeletal History: No Pertinent History GI Medical History: No Pertinent History, Hepatitis History: No Pertinent History Psycho-Social History: Attention Deficit Disorder, Other Female Reproductive Disorders: Other Other Medical History: pt has history of multiple fractures in her life -uses suboxone and neurontin for chronic pain Hep C, bipolar - Past Surgical History Past Surgical History: Yes Musculoskeletal: Orthopedic Surgery Female Surgical History: Tubal Ligation Other Surgical History: right knee - Social History Smoking Status: Unknown if ever smoked How long have you smoked: unknown Exposure to second hand smoke: No Alcohol Use: None Drug Use: heroin, other Patient Lives Alone: No Significant Family History: no pertinent family hx - Female History Hx Last Menstrual Period: unknown Hx Now: No - Nursing Vital Signs Nursing Vital Signs: Initial Vital Signs Temperature 98.4 F 04/03/18 13:29 Pulse Rate 121 H 04/03/18 13:29 Respiratory Rate 16 04/03/18 13:29 Blood Pressure 127/95 04/03/18 13:29 O2 Sat by Pulse Oximetry 97 04/03/18 13:29 Pain Scale Pain Intensity 0 - Physical Exam General Appearance: no apparent distress, alert Eye Exam: PERRL/EOMI, other (THERE IS DRY CRUSTY EXUDATE OF RIGHT EYE LASHES, LOWER LID HORDELUM MEDIAL TO MIDLINE WITH DRAINAGE) Ears, Nose, Throat Exam: normal ENT inspection, TMs normal, pharynx normal, moist mucous membranes Neck Exam: normal inspection, non-tender, supple, full range of motion Respiratory Exam: normal breath sounds, lungs clear, No respiratory distress Cardiovascular Exam: regular rate/rhythm, normal heart sounds, normal peripheral pulses Gastrointestinal/Abdomen Exam: No tenderness, No mass Back Exam: normal inspection, normal range of motion, No CVA tenderness, No vertebral tenderness Extremity Exam: normal inspection, normal range of motion, pelvis stable Neurologic Exam: alert, oriented x 3, cooperative, normal mood/affect, nml cerebellar function, nml station & gait, sensation nml, No motor deficits Skin Exam: normal color, warm, dry, No rash Lymphatic Exam: No adenopathy SpO2: 97 Oxygen Delivery: Room Air Ordered Tests: Active Orders 24 hr Category Date Time Status Nursing [Miscellaneous Nursing Order] ROUTINE Care 04/03/18 14:04 Active Urine Triage Profile Stat Lab 04/03/18 14:18 Uncollected - Progress Progress Note: 04/03/18 14:17 APPLICATION OF WARM COMPRESSES TO RIGHT EYE - Departure Time of Disposition: 17:00 Departure Disposition: Home Clinical Impression: RIGHT LOWER EYE LID HORDELUM Condition: Stable Critical Care Time: No Referrals: ALYSSA VALDOVINOS [Primary Care Provider] - Additional Instructions: APPLY WARM COMPRESSES OVER RIGHT EYE LID EVERY 4 HOURS WHILE AWAKE FOR 3 DAYS. APPLY ERYTHROMYCIN OPHTHALMIC OINTMENT INTO INNER LOWER RIGHT LID EVERY 6 HOURS FOR 5 DAYS. ANTIBIOTIC KEFLEX 500MG EVERY 6 HOURS FOR 7 DAYS. FOLLOWUP WITH YOUR PRIMARY CARE PROVIDER IN 5-7 DAYS.
[2018-04-03 17:03] VITALS: BP 119/75; PULSE 88; O2SAT 100
== END 2018-04-03 17:09 | disposition home or self-care (01) ==
LOC: ED 13:25
DX: H00.012 Hordeolum externum right lower eyelid (principal)
CPT/HCPCS: 99284

== ENCOUNTER 2018-04-22 14:38 | Emergency (ER) | payer OTHER ==
[2018-04-22 14:45] VITALS: BP 120/87; PULSE 81; O2SAT 100
--- NOTE | 2018-04-22 15:01 | ERPHSYRPT ---
- History of Present Illness Time Seen by Provider: 04/22/18 14:58 Source: patient, EMS Exam Limitations: no limitations Patient Subjective Stated Complaint: Pt complains of not feeling well today. Complains of dizziness and burning with urination. Denies fever today. Triage Nursing Assessment: Pt alert and only oriented to place, name and . pt appears to be anxious - very concerned with what is going on outside and fidgiting. afebrile. denies pain Physician History: The patient is a 32-year-old female brought in by ambulance complaining that she has urinary burning, frequency, and urgency for 2 days. She also states that she feels "dizzy". She's been out of the sun the last few days. She denies fever or chills. She denies pain except on urination. Her past medical history significant for psychiatric problems including bipolar disorder. Timing/Duration: day(s) (2), gradual onset Severity: moderate Modifying Factors: Improves With: nothing Allergies/Adverse Reactions: No Known Drug Allergies Allergy (Verified 04/03/18 13:44) Hx Tetanus, Diphtheria Vaccination/Date Given: No Hx Influenza Vaccination/Date Given: No Hx Pneumococcal Vaccination/Date Given: No - Review of Systems Constitutional: No Fever, No Chills Eyes: No Symptoms Ears, Nose, & Throat: No Symptoms Respiratory: No Cough, No Dyspnea Cardiac: No Chest Pain, No Edema, No Syncope Abdominal/Gastrointestinal: No Abdominal Pain, No Nausea, No Vomiting, No Diarrhea Genitourinary Symptoms: Dysuria, Frequency, Urgency Musculoskeletal: No Back Pain, No Neck Pain Skin: No Rash Neurological: Dizziness, No Focal Weakness, No Sensory Changes Psychological: No Symptoms Endocrine: No Symptoms Hematologic/Lymphatic: No Symptoms Immunological/Allergic: No Symptoms All Other Systems: Reviewed and Negative - Past Medical History Pertinent Past Medical History: Yes Neurological History: No Pertinent History ENT History: No Pertinent History Cardiac History: No Pertinent History Respiratory History: No Pertinent History Endocrine Medical History: No Pertinent History Musculoskeletal History: No Pertinent History GI Medical History: No Pertinent History, Hepatitis History: No Pertinent History Psycho-Social History: Attention Deficit Disorder, Other Female Reproductive Disorders: Other Other Medical History: pt has history of multiple fractures in her life -uses suboxone and neurontin for chronic pain Hep C, bipolar - Past Surgical History Past Surgical History: Yes Musculoskeletal: Orthopedic Surgery Female Surgical History: Tubal Ligation Other Surgical History: right knee - Social History Smoking Status: Current every day smoker How long have you smoked: unknown Exposure to second hand smoke: No Alcohol Use: None Drug Use: none Patient Lives Alone: Yes Significant Family History: no pertinent family hx - Female History Hx Now: No - Nursing Vital Signs Nursing Vital Signs: Initial Vital Signs Temperature 99.0 F 04/22/18 14:40 Pulse Rate 81 04/22/18 14:40 Respiratory Rate 18 04/22/18 14:40 Blood Pressure 120/87 04/22/18 14:40 O2 Sat by Pulse Oximetry 100 04/22/18 14:40 Pain Scale Pain Intensity 0 - Physical Exam General Appearance: no apparent distress, alert Eye Exam: PERRL/EOMI, eyes nml inspection Ears, Nose, Throat Exam: normal ENT inspection, TMs normal, pharynx normal, moist mucous membranes Neck Exam: normal inspection, non-tender, supple, full range of motion Respiratory Exam: normal breath sounds, lungs clear, No respiratory distress Cardiovascular Exam: regular rate/rhythm, normal heart sounds, normal peripheral pulses Gastrointestinal/Abdomen Exam: soft, normal bowel sounds, No tenderness, No mass Pelvic Exam: not done Rectal Exam: not done Back Exam: normal inspection, normal range of motion, No CVA tenderness, No vertebral tenderness Extremity Exam: normal inspection, normal range of motion, pelvis stable Neurologic Exam: alert, oriented x 3, cooperative, normal mood/affect, nml cerebellar function, nml station & gait, sensation nml, No motor deficits Skin Exam: normal color, warm, dry, No rash Lymphatic Exam: No adenopathy SpO2 Interpretation: normal SpO2: 100 Oxygen Delivery: Room Air Ordered Tests: Active Orders 24 hr Category Date Time Status CULTURE,URINE Stat Lab 04/22/18 15:51 Received HCG,QUALITATIVE URINE Stat Lab 04/22/18 15:51 Completed UA W/ MICROSCOPIC Stat Lab 04/22/18 15:51 Completed Urine Triage Profile Stat Lab 04/22/18 15:51 Completed Lab/Rad Data: Laboratory Results 04/22/18 04/22/18 04/22/18 Range/Units 15:51 15:51 15:51 Ur Collection Type CLEAN CATCH Urine Color YELLOW (YELLOW) Urine Appearance HAZY (CLEAR) Urine pH 7.0 (5-6) Ur Specific [place] 1.015 (1.005-1.025) Urine Protein NEGATIVE (Negative) Urine Ketones NEGATIVE (NEGATIVE) Urine Blood TRACE NON-HEM (0-5) Avinash/ul Urine Nitrite NEGATIVE (NEGATIVE) Urine Bilirubin NEGATIVE (NEGATIVE) Urine Urobilinogen NORMAL (0-1) mg/dL Ur Leukocyte Esterase TRACE (NEGATIVE) Urine Microscopic RBC 0-2 (0-2) /HPF Urine Microscopic WBC 0-2 (0-5) /HPF Ur Epithelial Cells MANY (FEW) /HPF Urine Bacteria MANY (NEGATIVE) /HPF Urine Mucus SLIGHT (NEGATIVE) /HPF Urine Culture Reflexed YES (NO) Urine Glucose NEGATIVE (NEGATIVE) mg/dL Urine HCG, Qual NEGATIVE (Negative) Urine Opiates Level NEGATIVE (NEGATIVE) Ur Methadone NEGATIVE (NEGATIVE) Urine Barbiturates NEGATIVE (NEGATIVE) Ur Phencyclidine (PCP) NEGATIVE (NEGATIVE) Urine Amphetamine NEGATIVE (NEGATIVE) U Benzodiazepine Level NEGATIVE (NEGATIVE) Urine Cocaine NEGATIVE (NEGATIVE) Urine Marijuana (THC) NEGATIVE (NEGATIVE) Specimen Received 04/22/18 8705 - Progress Progress: improved Progress Note: 04/22/18 16:40 pt ate and drank in ER and is feeling better. Counseled pt/family regarding: lab results, diagnosis - Departure Time of Disposition: 16:40 Departure Disposition: Home Clinical Impression: Dysuria Condition: Stable Critical Care Time: No Referrals: ALYSSA VALDOVINOS [Primary Care Provider] - Additional Instructions: Your having some mild dysuria. The urinalysis was normal today. Try over-the- counter Azo (Pyridium) as directed on the box. Stay well hydrated. Follow-up with your primary medical doctor on Wednesday.
[2018-04-22 16:26] LABS: Appearance HAZY (CLEAR); Bilirubin NEGATIVE (NEGATIVE); Blood TRACE NON-HEM Ery/ul (0-5); Glucose NEGATIVE (NEGATIVE); Ketones NEGATIVE (NEGATIVE); Leukocyte Esterase TRACE (NEGATIVE); Nitrite NEGATIVE (NEGATIVE); Protein,Urine Dip NEGATIVE (Negative); Specific Gravity 1.015 (1.005-1.025); Urobilinogen NORMAL mg/dL (0-1)
[2018-04-22 16:27] LABS: Bacteria MANY /HPF (NEGATIVE); Epithelial Cells MANY /HPF (FEW); Mucus SLIGHT /HPF (NEGATIVE); RBC 0-2 /HPF (0-2); WBC 0-2 /HPF (0-5)
[2018-04-22 16:37] LABS: Amphetamine,Urine NEGATIVE (NEGATIVE); Barbiturate,Urine NEGATIVE (NEGATIVE); Benzodiazepine,Urine NEGATIVE (NEGATIVE); Cocaine,Urine NEGATIVE (NEGATIVE); Methadone,Urine NEGATIVE (NEGATIVE); Opiate,Urine NEGATIVE (NEGATIVE); PCP,Urine NEGATIVE (NEGATIVE); THC,Urine NEGATIVE (NEGATIVE)
== END 2018-04-22 16:54 | disposition home or self-care (01) ==
LOC: ED 14:38
DX: R30.0 Dysuria (principal); R42 Dizziness and giddiness
CPT/HCPCS: 80307; 81000; 84703; 87086; 99283

== ENCOUNTER 2018-05-07 11:26 | Emergency (ER) | payer OTHER ==
--- NOTE | 2018-05-07 12:19 | ERPHSYRPT ---
- History of Present Illness Time Seen by Provider: 05/07/18 12:12 Source: patient Exam Limitations: no limitations Patient Subjective Stated Complaint: states has been feeling depressed lately. states everything around her is stressful. denies any suicidal or homicidal ideation at this time. also states she is supposed to be on wellbutrin but hasn 't taken it for about a month. Triage Nursing Assessment: ambulated to room per self. skin w/d, color normal, resp easy. a/o times three. marciano Physician History: The patient is a 32-year-old female complaining of feeling depressed for "quite some time". She is a poor historian. She states she has tried several antidepressants in the past that haven't worked. Her most recent antidepressant was Wellbutrin. She stopped taking it at least a month ago. She denies any suicidal or homicidal ideation. She states her depression is a daily thing. She also states she wants to be "shipped off somewhere". Her past medical history is significant for depression, anxiety, and drug abuse. Timing/Duration: day(s) (daily) Severity of Symptoms-Max: moderate Severity of Symptoms-Current: moderate Context related to: other (stress) Associated Symptoms: depressed Previous symptoms: same symptoms as today, no recent treatment Allergies/Adverse Reactions: No Known Drug Allergies Allergy (Verified 05/07/18 11:42) Home Medications: Buprenorphine HCl/Naloxone HCl [Buprenorphin-Naloxon 8-2 mg Sl] 8 mg PO BID [History] Hx Tetanus, Diphtheria Vaccination/Date Given: No Hx Influenza Vaccination/Date Given: No Hx Pneumococcal Vaccination/Date Given: No - Past Medical History Pertinent Past Medical History: Yes Neurological History: No Pertinent History ENT History: No Pertinent History Cardiac History: No Pertinent History Respiratory History: No Pertinent History Endocrine Medical History: No Pertinent History Musculoskeletal History: No Pertinent History GI Medical History: No Pertinent History, Hepatitis History: No Pertinent History Psycho-Social History: Attention Deficit Disorder, Other Female Reproductive Disorders: Other Other Medical History: pt has history of multiple fractures in her life -uses suboxone and neurontin for chronic pain Hep C, bipolar - Past Surgical History Past Surgical History: Yes Musculoskeletal: Orthopedic Surgery Female Surgical History: Tubal Ligation Other Surgical History: right knee - Social History Smoking Status: Current every day smoker How long have you smoked: 10 Exposure to second hand smoke: No Alcohol Use: None Drug Use: none Patient Lives Alone: No Significant Family History: no pertinent family hx - Female History Hx Now: No (not sure when lmp was) - Review of Systems Constitutional: No Fever, No Chills Eyes: No Symptoms Ears, Nose, & Throat: No Symptoms Respiratory: No Cough, No Dyspnea Cardiac: No Chest Pain, No Edema, No Syncope Abdominal/Gastrointestinal: No Abdominal Pain, No Nausea, No Vomiting, No Diarrhea Genitourinary Symptoms: No Dysuria Musculoskeletal: No Back Pain, No Neck Pain Skin: No Rash Neurological: No Dizziness, No Focal Weakness, No Sensory Changes Psychological: Drug Abuse, Anxiety, Depression Endocrine: No Symptoms Hematologic/Lymphatic: No Symptoms Immunological/Allergic: No Symptoms All Other Systems: Reviewed and Negative - Nursing Vital Signs Nursing Vital Signs: Initial Vital Signs Temperature 98.1 F 05/07/18 11:36 Pulse Rate 108 H 05/07/18 11:36 Respiratory Rate 16 05/07/18 11:36 Blood Pressure 115/84 05/07/18 11:36 O2 Sat by Pulse Oximetry 97 05/07/18 11:36 Pain Scale Pain Intensity 0 - Physical Exam General Appearance: no apparent distress Eyes, Ears, Nose, Throat Exam: normal ENT inspection, moist mucous membranes Neck Exam: normal inspection, non-tender, supple Respiratory Exam: normal breath sounds, lungs clear, No respiratory distress Cardiovascular Exam: regular rate/rhythm, No edema Gastrointestinal/Abdominal Exam: soft, No tenderness, No distention Extremities Exam: normal inspection, normal range of motion, No evidence of injury, No edema Current Suicidality: denies suicide plan Neurological Exam: 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, 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 tested, oriented x 3 Appearance: appropriate appearance, appropriate insight Behavior/Eye Contact/Speech: alert & cooperative, cooperative, good eye contact , normal speech Thoughts/Hallucinations: normal thought pattern Skin Exam: normal color, warm, dry, No rash SpO2 Interpretation: normal SpO2: 97 Oxygen Delivery: Room Air Ordered Tests: Active Orders 24 hr Category Date Time Status Clean Catch Urine Specimen STAT Care 05/07/18 12:23 Active EKG-ER Only STAT Care 05/07/18 12:23 Active Psychiatric Consult STAT Cons 05/07/18 12:25 Active ACETAMINOPHEN Stat Lab 05/07/18 12:58 Completed BMP Stat Lab 05/07/18 12:58 Completed CBC W DIFF Stat Lab 05/07/18 12:58 Completed CULTURE,URINE Stat Lab 05/07/18 12:34 Received ETHYL ALCOHOL Stat Lab 05/07/18 12:58 Completed HCG QUALITATIVE,SERUM Stat Lab 05/07/18 12:58 Completed SALICYLATE Stat Lab 05/07/18 12:58 Completed UA W/ MICROSCOPIC Stat Lab 05/07/18 12:34 Completed Urine Triage Profile Stat Lab 05/07/18 12:34 Completed Lab/Rad Data: Laboratory Result Diagrams 05/07/18 12:58 05/07/18 12:58 Laboratory Results 05/07/18 05/07/18 05/07/18 Range/Units 12:58 12:58 12:58 WBC 12.2 H (4.0-10.5) K/mm3 RBC 5.10 (4.1-5.4) M/mm3 Hgb 15.7 (12.0-16.0) gm/dl Hct 45.0 (35-47) % MCV 88.2 (78-100) fl MCH 30.8 (26-32) pg MCHC 34.9 (32-36) g/dl RDW 12.4 (11.5-14.0) % Plt Count 210 (150-450) K/mm3 MPV 10.0 H (6-9.5) fl Gran % 69.7 H (36.0-66.0) % Eos # (Auto) 0.10 (0-0.5) Absolute Lymphs (auto) 2.98 (1.0-4.6) Absolute Monos (auto) 0.58 (0.0-1.3) Lymphocytes % 24.5 (24.0-44.0) % Monocytes % 4.8 (0.0-12.0) % Eosinophils % 0.8 (0.00-5.0) % Basophils % 0.2 (0.0-0.4) % Absolute Granulocytes 8.47 H (1.4-6.9) Basophils # 0.03 (0-0.4) Sodium 142 (137-145) mmol/L Potassium 4.3 (3.5-5.1) mmol/L Chloride 106 (98-107) mmol/L Carbon Dioxide 25 (22-30) mmol/L Anion Gap 15.2 H (5-15) MEQ/L BUN 12 (7-17) mg/dL Creatinine 0.66 (0.52-1.04) mg/dL Estimated GFR > 60.0 ML/MIN Glucose 65 L (74-106) mg/dL Calcium 9.4 (8.4-10.2) mg/dL Serum , Qual NEGATIVE (Negative) Ur Collection Type Urine Color (YELLOW) Urine Appearance (CLEAR) Urine pH (5-6) Ur Specific [place] (1.005-1.025) Urine Protein (Negative) Urine Ketones (NEGATIVE) Urine Blood (0-5) Avinash/ul Urine Nitrite (NEGATIVE) Urine Bilirubin (NEGATIVE) Urine Urobilinogen (0-1) mg/dL Ur Leukocyte Esterase (NEGATIVE) Urine Microscopic RBC (0-2) /HPF Urine Microscopic WBC (0-5) /HPF Ur Epithelial Cells (FEW) /HPF Urine Bacteria (NEGATIVE) /HPF Urine Culture Reflexed (NO) Urine Glucose (NEGATIVE) mg/dL Salicylates < 1.0 L (2-20) mg/dL Urine Opiates Level (NEGATIVE) Ur Methadone (NEGATIVE) Acetaminophen < 10 L (10-30) ug/ml Urine Barbiturates (NEGATIVE) Ur Phencyclidine (PCP) (NEGATIVE) Urine Amphetamine (NEGATIVE) U Benzodiazepine Level (NEGATIVE) Urine Cocaine (NEGATIVE) Urine Marijuana (THC) (NEGATIVE) Ethyl Alcohol < 10 (0-10) mg/dL 05/07/18 05/07/18 Range/Units 12:34 12:34 WBC (4.0-10.5) K/mm3 RBC (4.1-5.4) M/mm3 Hgb (12.0-16.0) gm/dl Hct (35-47) % MCV (78-100) fl MCH (26-32) pg MCHC (32-36) g/dl RDW (11.5-14.0) % Plt Count (150-450) K/mm3 MPV (6-9.5) fl Gran % (36.0-66.0) % Eos # (Auto) (0-0.5) Absolute Lymphs (auto) (1.0-4.6) Absolute Monos (auto) (0.0-1.3) Lymphocytes % (24.0-44.0) % Monocytes % (0.0-12.0) % Eosinophils % (0.00-5.0) % Basophils % (0.0-0.4) % Absolute Granulocytes (1.4-6.9) Basophils # (0-0.4) Sodium (137-145) mmol/L Potassium (3.5-5.1) mmol/L Chloride (98-107) mmol/L Carbon Dioxide (22-30) mmol/L Anion Gap (5-15) MEQ/L BUN (7-17) mg/dL Creatinine (0.52-1.04) mg/dL Estimated GFR ML/MIN Glucose (74-106) mg/dL Calcium (8.4-10.2) mg/dL Serum , Qual (Negative) Ur Collection Type VOID Urine Color YELLOW (YELLOW) Urine Appearance CLEAR (CLEAR) Urine pH 6.0 (5-6) Ur Specific [place] 1.015 (1.005-1.025) Urine Protein NEGATIVE (Negative) Urine Ketones NEGATIVE (NEGATIVE) Urine Blood 5-10 (0-5) Avinash/ul Urine Nitrite NEGATIVE (NEGATIVE) Urine Bilirubin NEGATIVE (NEGATIVE) Urine Urobilinogen NORMAL (0-1) mg/dL Ur Leukocyte Esterase TRACE (NEGATIVE) Urine Microscopic RBC 0-2 (0-2) /HPF Urine Microscopic WBC 2-5 (0-5) /HPF Ur Epithelial Cells FEW (FEW) /HPF Urine Bacteria FEW (NEGATIVE) /HPF Urine Culture Reflexed YES (NO) Urine Glucose NEGATIVE (NEGATIVE) mg/dL Salicylates (2-20) mg/dL Urine Opiates Level NEGATIVE (NEGATIVE) Ur Methadone NEGATIVE (NEGATIVE) Acetaminophen (10-30) ug/ml Urine Barbiturates NEGATIVE (NEGATIVE) Ur Phencyclidine (PCP) NEGATIVE (NEGATIVE) Urine Amphetamine NEGATIVE (NEGATIVE) U Benzodiazepine Level NEGATIVE (NEGATIVE) Urine Cocaine NEGATIVE (NEGATIVE) Urine Marijuana (THC) NEGATIVE (NEGATIVE) Ethyl Alcohol (0-10) mg/dL - Progress Progress Note: 05/07/18 16:02 The patient had a tele-psychiatric evaluation by the [facility] and was found not to qualify for transfer for inpatient hospitalization. It was recommended she be discharged to home and follow-up with the [facility] next week. Recommendations of the specific antidepressants were not given. Counseled pt/family regarding: lab results, diagnosis, need for follow-up - Departure Time of Disposition: 16:03 Departure Disposition: Home Clinical Impression: Depression Condition: Stable Critical Care Time: No Referrals: ALYSSA VALDOVINOS [Primary Care Provider] - Additional Instructions: You have depression. The psychiatric consultation with the [facility] did not recommend inpatient psychiatric hospitalization. Take Zoloft 50 mg daily. Follow-up with your primary medical doctor or the [facility] at the first of next week. Prescriptions: Sertraline HCl [Zoloft] 50 mg PO DAILY #7 tablet
[2018-05-07 13:00] LABS: BASOPHIL % 0.2 % (0.0-0.4); Basophil (Absolute #) 0.03 (0-0.4); Eosinophil % 0.8 % (0.00-5.0); Granulocyte Absolute (ANC) 8.47 (1.4-6.9); Granulocytes % 69.7 % (36.0-66.0); Hemoglobin 15.7 gm/dl (12.0-16.0); Lymphocyte (Absolute #) 2.98 (1.0-4.6); Lymphocytes % 24.5 % (24.0-44.0); Mean Cell Volume 88.2 fl (78-100); Mean Corpuscular Hemoglobin 30.8 pg (26-32); Mean Corpuscular Hgb Concent. 34.9 g/dl (32-36); Monocyte (Absolute #) 0.58 (0.0-1.3); Monocytes % 4.8 % (0.0-12.0); Platelet Count 210 K/mm3 (150-450); Red Cell Distribution Width 12.4 % (11.5-14.0); White Blood Count 12.2 K/mm3 (4.0-10.5)
[2018-05-07 13:10] LABS: Appearance CLEAR (CLEAR); Bacteria FEW /HPF (NEGATIVE); Bilirubin NEGATIVE (NEGATIVE); Epithelial Cells FEW /HPF (FEW); Glucose NEGATIVE (NEGATIVE); Ketones NEGATIVE (NEGATIVE); Leukocyte Esterase TRACE (NEGATIVE); Nitrite NEGATIVE (NEGATIVE); Protein,Urine Dip NEGATIVE (Negative); RBC 0-2 /HPF (0-2); Specific Gravity 1.015 (1.005-1.025); Urobilinogen NORMAL mg/dL (0-1)
[2018-05-07 13:22] LABS: Amphetamine,Urine NEGATIVE (NEGATIVE); Barbiturate,Urine NEGATIVE (NEGATIVE); Benzodiazepine,Urine NEGATIVE (NEGATIVE); Cocaine,Urine NEGATIVE (NEGATIVE); Methadone,Urine NEGATIVE (NEGATIVE); Opiate,Urine NEGATIVE (NEGATIVE); PCP,Urine NEGATIVE (NEGATIVE); THC,Urine NEGATIVE (NEGATIVE)
[2018-05-07 13:24] LABS: ACETAMINOPHEN < 10 ug/ml (10-30); ANION GAP 15.2 MEQ/L (5-15); BLOOD UREA NITROGEN 12 mg/dL (7-17); CHLORIDE 106 mmol/L (98-107); Calcium 9.4 mg/dL (8.4-10.2); Carbon Dioxide 25 mmol/L (22-30); Creatinine 1 0.66 mg/dL (0.52-1.04); ETHYL ALCOHOL < 10 mg/dL (0-10); Glucose 65 mg/dL (74-106); Potassium 4.3 mmol/L (3.5-5.1); SALICYLATE < 1.0 mg/dL (2-20); SODIUM 142 mmol/L (137-145)
[2018-05-07 16:06] VITALS: O2SAT 97
[2018-05-07 16:12] VITALS: BP 129/84; PULSE 66
== END 2018-05-07 16:12 | disposition home or self-care (01) ==
LOC: ED 11:26
DX: F32.9 Major depressive disorder, single episode, unspecified (principal)
CPT/HCPCS: 36415; 80048; 80307; 81000; 84703; 85025; 87086; 90791; 93005; 99284; G0481; Q3014; G0480

== ENCOUNTER 2019-02-13 19:55 | Emergency (ER) | payer OTHER ==
[2019-02-13] MEDS ORDERED: Eye-Stream Solution OP ONE (20:15)
[2019-02-13] MEDS ORDERED: Fluor-I-Strip/Ful-Flo OP ONE ×2 (20:15→20:19)
[2019-02-13] MEDS ORDERED: TETRACAINE 0.5% STERI-UNIT SOL OP ONE (20:19)
[2019-02-13] MEDS ORDERED: Eye-Stream Solution ONE (20:19)
[2019-02-13] MEDS: TETRACAINE 0.5% STERI-UNIT SOL OP STA ×2 (20:21→20:59)
--- NOTE | 2019-02-13 21:00 | ERPHSYRPT ---
- History of Present Illness Time Seen by Provider: 02/13/19 20:47 Source: patient Exam Limitations: no limitations Patient Subjective Stated Complaint: Right eye irritation Triage Nursing Assessment: Patient ambulated back to ED and transferred self to bed. Patient A+O X 3. Patient's skin pink, warm and dry. Patient states she feels like there is a film over the right eye which causes her vision to be hazy out of right eye. Patient denies pain or discomfort to right eye. Patient states she changed mascara's a few weeks ago. Patient's right eye noted to be red and swollen. Patient states she is sensitive to light also in right eye. Patient denies trauma to right eye. Patient states left eye is fine. Physician History: 33-year-old white female arrives with complaint that she feels like there is a film overlying her right eye symptoms for 2 days. She denies any contact use denies any injury. Past medical history includes attention deficit disorder and hepatitis, multiple fractures past surgical history includes tubal ligation orthopedic surgery Timing/Duration: day(s) (2 days) Severity: moderate Modifying Factors: Improves With: nothing Associated Symptoms: other (blurry vision right eye,, photophobia), No nausea, No vomiting, No abdominal pain, No shortness of breath, No heartburn, No diaphoresis, No cough, No chills Allergies/Adverse Reactions: No Known Drug Allergies Allergy (Verified 02/13/19 20:01) Hx Tetanus, Diphtheria Vaccination/Date Given: No Hx Influenza Vaccination/Date Given: No Hx Pneumococcal Vaccination/Date Given: No Immunizations Up to Date: Yes - Review of Systems Constitutional: No Fever, No Chills Eyes: Photophobia, Vision Changes, No Discharge, No Eye Pain, No Eye Redness, No Itchy, No Tearing, No Double Vision, No Foreign Body Sensation Ears, Nose, & Throat: No Symptoms Respiratory: No Cough, No Dyspnea Cardiac: No Chest Pain, No Edema, No Syncope Abdominal/Gastrointestinal: No Abdominal Pain, No Nausea, No Vomiting, No Diarrhea Genitourinary Symptoms: No Dysuria Musculoskeletal: No Back Pain, No Neck Pain Skin: No Rash Neurological: No Dizziness, No Focal Weakness, No Sensory Changes Psychological: No Symptoms Endocrine: No Symptoms All Other Systems: Reviewed and Negative - Past Medical History Pertinent Past Medical History: Yes Neurological History: No Pertinent History ENT History: No Pertinent History Cardiac History: No Pertinent History Respiratory History: No Pertinent History Endocrine Medical History: No Pertinent History Musculoskeletal History: No Pertinent History GI Medical History: No Pertinent History, Hepatitis History: No Pertinent History Psycho-Social History: Attention Deficit Disorder, Other Female Reproductive Disorders: Other Other Medical History: pt has history of multiple fractures in her life, Hep C , bipolar - Past Surgical History Past Surgical History: Yes Neuro Surgical History: No Pertinent History Cardiac: No Pertinent History Respiratory: No Pertinent History Gastrointestinal: No Pertinent History Genitourinary: No Pertinent History Musculoskeletal: Orthopedic Surgery Female Surgical History: Tubal Ligation Other Surgical History: right knee - Social History Smoking Status: Current every day smoker How long have you smoked: years Exposure to second hand smoke: Yes Alcohol Use: None Drug Use: none Patient Lives Alone: Yes Significant Family History: no pertinent family hx - Female History Hx Last Menstrual Period: Last month Hx Now: No - Nursing Vital Signs Nursing Vital Signs: Initial Vital Signs Temperature 98.7 F 02/13/19 20:02 Pulse Rate 89 02/13/19 20:02 Respiratory Rate 18 02/13/19 20:02 Blood Pressure 120/95 02/13/19 20:02 O2 Sat by Pulse Oximetry 98 02/13/19 20:02 Pain Scale Pain Intensity 0 - Physical Exam General Appearance: no apparent distress, alert Eye Exam: PERRL/EOMI, other (eyes: PERRLA, EOMI fundi unremarkable, no foreign bodies, right conjunctiva mildly erythematous, right eye stained with fluorescein no abrasions noted both of the globes are soft) Ears, Nose, Throat Exam: normal ENT inspection, TMs normal, pharynx normal, moist mucous membranes Neck Exam: normal inspection, non-tender, supple, full range of motion Respiratory Exam: normal breath sounds, lungs clear, No respiratory distress Cardiovascular Exam: regular rate/rhythm, normal heart sounds, normal peripheral pulses, capillary refill <2 sec Gastrointestinal/Abdomen Exam: soft, normal bowel sounds, No tenderness, No mass Back Exam: normal inspection, normal range of motion, No CVA tenderness, No vertebral tenderness Extremity Exam: normal inspection, normal range of motion, pelvis stable Neurologic Exam: alert, oriented x 3, cooperative, billing analyst 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 tested, normal mood/affect, nml cerebellar function, nml station & gait, sensation nml, No motor deficits Skin Exam: normal color, warm, dry, No rash Lymphatic Exam: No adenopathy SpO2 Interpretation: normal (98%) SpO2: 98 - Course Nursing assessment & vital signs reviewed: Yes Ordered Tests: Active Orders 24 hr Category Date Time Status Visual Acuity STAT Care 02/13/19 20:15 Active Medication Summary Discontinued Medications Generic Name Dose Route Start Last Admin Trade Name Darci PRN Reason Stop Dose Admin Eye Irrigation Solution 15 ml 02/13/19 20:15 02/13/19 20:22 Eye-Stream Solution OP 02/13/19 20:16 15 ml STAT ONE Administration Eye Irrigation Solution Confirm 02/13/19 20:19 Eye-Stream Solution Administered 02/13/19 20:20 Dose 30 ml .ROUTE .STK-MED ONE Fluorescein Sodium 1 mg 02/13/19 20:15 02/13/19 20:22 Dgorl-F-Mtyjo/Ful-Jaime OP 02/13/19 20:16 1 mg STAT ONE Administration Fluorescein Sodium Confirm 02/13/19 20:19 Vwbqb-[id number]-Dxjlf/Ful-Jaime Administered 02/13/19 20:20 Dose 1 mg OP .STK-MED ONE Tetracaine HCl 4 ml 02/13/19 20:15 02/13/19 20:21 Tetracaine 0.5% Steri-Unit [place] OP 02/13/19 20:16 4 ml STAT STA Administration Tetracaine HCl Confirm 02/13/19 20:19 Tetracaine 0.5% Steri-Unit [place] Administered 02/13/19 20:20 Dose 4 ml OP .STK-MED ONE - Progress Progress: improved Progress Note: 02/13/19 20:59 This is a 33-year-old white female she arrives with complaint as if she has some photophobia right eye she feels like there is a [place] overlying her vision on the right symptoms for 2 days. She denies any contact use she denies any injury she states right really doesn' t hurt. Eye examination vision 20/30 on the right 20/20 on the left. Eyes PERRLA, EOMI, fundi unremarkable. , No foreign bodies are noted. , Right eye stained with fluorescein no abrasions are noted. Conjunctivae on the right is mildly erythematous. Right eye rinsed with sterile eyewash solution. Will place patient on Ciloxan drops right eye one to 2 drops right eye 4 times a day for 5 days. Patient to followup with her php mysql web developer tomorrow if symptoms no better or persist more than 48 hours. - Departure Departure Disposition: Home Clinical Impression: vision change right eye Conjunctivitis, right eye Qualifiers: Conjunctivitis type: acute Acute conjunctivitis type: unspecified Qualified Code(s): H10.31 - Unspecified acute conjunctivitis, right eye Condition: Fair Critical Care Time: No Referrals: ALYSSA VALDOVINOS [Primary Care Provider] - Additional Instructions: Return home. Ciloxan drops 0.3% one to 2 drops right eye 4 times a day for 5 days. Followup with your php mysql web developer tomorrow if symptoms not markedly improved or followup with php mysql web developer tomorrow if symptoms longer than 48 hours. Return for acute distress or for severe symptoms.
[2019-02-13] MEDS ORDERED: Ciloxan OPHTH OP ONE (21:02)
[2019-02-13] MEDS ORDERED: Ciloxan OPHTH ONE (21:35)
[2019-02-13 21:47] VITALS: BP 103/56; PULSE 68; O2SAT 99
== END 2019-02-13 21:47 | disposition home or self-care (01) ==
LOC: ED 19:55
DX: H53.8 Other visual disturbances (principal); K75.9 Inflammatory liver disease, unspecified
CPT/HCPCS: 99283; A9270-GY

== ENCOUNTER 2019-05-05 22:36 | Observation (INO) | payer OTHER ==
--- NOTE | 2019-05-05 22:58 | ERPHSYRPT ---
- History of Present Illness Time Seen by Provider: 05/05/19 22:52 Historian: patient, family Exam Limitations: no limitations Patient Subjective Stated Complaint: pt states she began having lt upper abd pain around 1500 today. states pain has increased through the day. describes as sharp, stabbing pain. Triage Nursing Assessment: pt alert and oreinted, answers questions approp. respirations nonlabored with lungs cta. skin pink warm and dry. abd soft, pt reports tenderness in epigastric and luq. bowel sound hypo. Timing/Duration: yesterday Activities at Onset: none Quality: cramping, sharpness Abdominal Pain Onset Location: LUQ, epigastric Pain Radiation: no radiation Severity of Pain-Max: moderate Severity of Pain-Current: moderate Modifying Factors: Improves With: nothing Associated Symptoms: No chest pain, No headache, No heartburn, No loss of appetite, No shortness of breath, No weakness Previous symptoms: no prior history Allergies/Adverse Reactions: No Known Drug Allergies Allergy (Verified 05/05/19 22:47) Home Medications: Buprenorphine HCl/Naloxone HCl [Suboxone 8 mg-2 mg Tablet Sl] 1 each SL BID [History] Gabapentin [Neurontin] 300 mg PO BID 05/05/19 [History] Hx Tetanus, Diphtheria Vaccination/Date Given: No Hx Influenza Vaccination/Date Given: No Hx Pneumococcal Vaccination/Date Given: No Immunizations Up to Date: No - Review of Systems Constitutional: No Fever, No Chills Eyes: No Symptoms Ears, Nose, & Throat: No Symptoms Respiratory: No Cough, No Dyspnea Cardiac: No Chest Pain, No Edema, No Syncope Abdominal/Gastrointestinal: Abdominal Pain, No Nausea, No Vomiting, No Diarrhea Genitourinary Symptoms: No Dysuria Musculoskeletal: No Back Pain, No Neck Pain Skin: No Rash Neurological: No Dizziness, No Focal Weakness, No Sensory Changes Psychological: No Symptoms Endocrine: No Symptoms All Other Systems: Reviewed and Negative - Past Medical History Pertinent Past Medical History: Yes Neurological History: No Pertinent History ENT History: No Pertinent History Cardiac History: No Pertinent History Respiratory History: No Pertinent History Endocrine Medical History: No Pertinent History Musculoskeletal History: No Pertinent History GI Medical History: No Pertinent History, Hepatitis History: No Pertinent History Psycho-Social History: Attention Deficit Disorder, Other Female Reproductive Disorders: Other Other Medical History: pt has history of multiple fractures in her life, Hep C , bipolar - Past Surgical History Past Surgical History: Yes Neuro Surgical History: No Pertinent History Cardiac: No Pertinent History Respiratory: No Pertinent History Gastrointestinal: No Pertinent History Genitourinary: No Pertinent History Musculoskeletal: Orthopedic Surgery Female Surgical History: Tubal Ligation Other Surgical History: right knee - Social History Smoking Status: Current every day smoker How long have you smoked: years Exposure to second hand smoke: Yes Alcohol Use: None Drug Use: none Patient Lives Alone: Yes Significant Family History: no pertinent family hx - Female History Hx Last Menstrual Period: 3 weeks Hx Now: No - Nursing Vital Signs Nursing Vital Signs: Initial Vital Signs Temperature 98.1 F 05/05/19 22:39 Pulse Rate 71 05/05/19 22:39 Respiratory Rate 16 05/05/19 22:39 Blood Pressure 122/74 05/05/19 22:39 O2 Sat by Pulse Oximetry 97 05/05/19 22:39 Pain Scale Pain Intensity 5 - Physical Exam General Appearance: no apparent distress, alert, other (patient examined in the presence of her mom) Eye Exam: PERRL/EOMI, eyes nml inspection Ears, Nose, Throat Exam: normal ENT inspection, pharynx normal, moist mucous membranes Neck Exam: normal inspection, non-tender, supple, full range of motion Respiratory Exam: normal breath sounds, lungs clear, No respiratory distress Cardiovascular Exam: regular rate/rhythm, normal heart sounds Gastrointestinal/Abdomen Exam: soft, tenderness, other (minimal left upper quadrant pain and tenderness, mild distention), No mass Back Exam: normal inspection, normal range of motion, No CVA tenderness, No vertebral tenderness Extremity Exam: normal inspection, normal range of motion, pelvis stable Neurologic Exam: alert, oriented x 3, cooperative, normal mood/affect, nml cerebellar function, sensation nml, No motor deficits Skin Exam: normal color, warm, dry SpO2: 97 - Course Nursing assessment & vital signs reviewed: Yes - CT Exams Abdomen/Pelvis CT Interpretation: Other (Small Bowell Obst) Ordered Tests: Active Orders 24 hr Category Date Time Status IV Insertion STAT Care 05/05/19 23:07 Active ABDOMEN AND PELVIS W CONTRAST [CT] Stat Exams 05/05/19 22:54 Taken CBC W DIFF Stat Lab 05/05/19 23:25 Completed CMP Stat Lab 05/05/19 23:25 Completed HCG QUALITATIVE,SERUM Stat Lab 05/05/19 23:25 Completed LIPASE Stat Lab 05/05/19 23:25 Completed UA W/RFX UR CULTURE Stat Lab 05/05/19 23:00 Completed Urine Triage Profile Stat Lab 05/05/19 23:00 Completed Medication Summary Discontinued Medications Generic Name Dose Route Start Last Admin Trade Name Darci PRN Reason Stop Dose Admin Sodium Chloride 1,000 mls @ 999 mls/hr 05/05/19 23:07 05/06/19 00:54 Sodium Chloride 0.9% 1000 Ml IV 05/06/19 00:07 Infused .Q1H1M STA Infusion Sodium Chloride Confirm 05/05/19 23:20 Sodium Chloride 0.9% 1000 Ml Administered 05/05/19 23:21 Dose 1,000 mls @ ud .ROUTE .STK-MED ONE Lab/Rad Data: Laboratory Result Diagrams 05/05/19 23:25 05/05/19 23:25 Laboratory Results 05/05/19 05/05/19 05/05/19 Range/Units 23:25 23:25 23:25 WBC 8.7 (4.0-10.5) K/mm3 RBC 4.91 (4.1-5.4) M/mm3 Hgb 15.6 (12.0-16.0) gm/dl Hct 45.7 (35-47) % MCV 93.1 (78-100) fl MCH 31.8 (26-32) pg MCHC 34.1 (32-36) g/dl RDW 11.9 (11.5-14.0) % Plt Count 204 (150-450) K/mm3 MPV 10.1 H (6-9.5) fl Gran % 68.0 H (36.0-66.0) % Eos # (Auto) 0.37 (0-0.5) Absolute Lymphs (auto) 2.04 (1.0-4.6) Absolute Monos (auto) 0.37 (0.0-1.3) Lymphocytes % 23.4 L (24.0-44.0) % Monocytes % 4.2 (0.0-12.0) % Eosinophils % 4.2 (0.00-5.0) % Basophils % 0.2 (0.0-0.4) % Absolute Granulocytes 5.92 (1.4-6.9) Basophils # 0.02 (0-0.4) Sodium 141 (137-145) mmol/L Potassium 4.0 (3.5-5.1) mmol/L Chloride 102 (98-107) mmol/L Carbon Dioxide 28 (22-30) mmol/L Anion Gap 14.0 (5-15) MEQ/L BUN 15 (7-17) mg/dL Creatinine 0.60 (0.52-1.04) mg/dL Estimated GFR > 60.0 ML/MIN Glucose 100 (74-106) mg/dL Calcium 9.7 (8.4-10.2) mg/dL Total Bilirubin 0.60 (0.2-1.3) mg/dL AST 23 (14-36) U/L ALT 18 (0-35) U/L Alkaline Phosphatase 55 (38-126) U/L Serum Total Protein 7.8 (6.3-8.2) g/dL Albumin 4.5 (3.5-5.0) g/dL Lipase 49 (23-300) U/L Serum , Qual NEGATIVE (Negative) Urine Color (YELLOW) Urine Appearance (CLEAR) Urine pH (5-6) Ur Specific [place] (1.005-1.025) Urine Protein (Negative) Urine Ketones (NEGATIVE) Urine Blood (0-5) Avinash/ul Urine Nitrite (NEGATIVE) Urine Bilirubin (NEGATIVE) Urine Urobilinogen (0-1) mg/dL Ur Leukocyte Esterase (NEGATIVE) Urine WBC (Auto) (0-5) /HPF Urine RBC (Auto) (0-2) /HPF U Epithel Cells (Auto) (FEW) /HPF Urine Bacteria (Auto) (NEGATIVE) /HPF Amorphous Crystals (NEGATIVE) /HPF Urine Mucus (Auto) (NEGATIVE) /HPF Urine Culture Reflexed (NO) Urine Glucose (NEGATIVE) mg/dL Urine Opiates Level (NEGATIVE) Ur Methadone (NEGATIVE) Urine Barbiturates (NEGATIVE) Ur Phencyclidine (PCP) (NEGATIVE) Urine Amphetamine (NEGATIVE) U Benzodiazepine Level (NEGATIVE) Urine Cocaine (NEGATIVE) Urine Marijuana (THC) (NEGATIVE) 05/05/19 05/05/19 Range/Units 23:00 23:00 WBC (4.0-10.5) K/mm3 RBC (4.1-5.4) M/mm3 Hgb (12.0-16.0) gm/dl Hct (35-47) % MCV (78-100) fl MCH (26-32) pg MCHC (32-36) g/dl RDW (11.5-14.0) % Plt Count (150-450) K/mm3 MPV (6-9.5) fl Gran % (36.0-66.0) % Eos # (Auto) (0-0.5) Absolute Lymphs (auto) (1.0-4.6) Absolute Monos (auto) (0.0-1.3) Lymphocytes % (24.0-44.0) % Monocytes % (0.0-12.0) % Eosinophils % (0.00-5.0) % Basophils % (0.0-0.4) % Absolute Granulocytes (1.4-6.9) Basophils # (0-0.4) Sodium (137-145) mmol/L Potassium (3.5-5.1) mmol/L Chloride (98-107) mmol/L Carbon Dioxide (22-30) mmol/L Anion Gap (5-15) MEQ/L BUN (7-17) mg/dL Creatinine (0.52-1.04) mg/dL Estimated GFR ML/MIN Glucose (74-106) mg/dL Calcium (8.4-10.2) mg/dL Total Bilirubin (0.2-1.3) mg/dL AST (14-36) U/L ALT (0-35) U/L Alkaline Phosphatase (38-126) U/L Serum Total Protein (6.3-8.2) g/dL Albumin (3.5-5.0) g/dL Lipase (23-300) U/L Serum , Qual (Negative) Urine Color YELLOW (YELLOW) Urine Appearance SLIGHTLY CLOUDY (CLEAR) Urine pH 7.0 (5-6) Ur Specific [place] 1.021 (1.005-1.025) Urine Protein NEGATIVE (Negative) Urine Ketones NEGATIVE (NEGATIVE) Urine Blood NEGATIVE (0-5) Avinash/ul Urine Nitrite NEGATIVE (NEGATIVE) Urine Bilirubin NEGATIVE (NEGATIVE) Urine Urobilinogen 4 (0-1) mg/dL Ur Leukocyte Esterase NEGATIVE (NEGATIVE) Urine WBC (Auto) 3-5 (0-5) /HPF Urine RBC (Auto) 3-5 (0-2) /HPF U Epithel Cells (Auto) RARE (FEW) /HPF Urine Bacteria (Auto) NONE SEEN (NEGATIVE) /HPF Amorphous Crystals FEW (NEGATIVE) /HPF Urine Mucus (Auto) SLIGHT (NEGATIVE) /HPF Urine Culture Reflexed NO (NO) Urine Glucose NEGATIVE (NEGATIVE) mg/dL Urine Opiates Level NEGATIVE (NEGATIVE) Ur Methadone NEGATIVE (NEGATIVE) Urine Barbiturates NEGATIVE (NEGATIVE) Ur Phencyclidine (PCP) NEGATIVE (NEGATIVE) Urine Amphetamine NEGATIVE (NEGATIVE) U Benzodiazepine Level NEGATIVE (NEGATIVE) Urine Cocaine NEGATIVE (NEGATIVE) Urine Marijuana (THC) NEGATIVE (NEGATIVE) - Progress Discussed with : Iris Will see patient in: hospital (observation) Counseled pt/family regarding: lab results, diagnosis - Departure Departure Disposition: Observation Clinical Impression: Small bowel obstruction Condition: Stable Critical Care Time: No Referrals: ALYSSA VALDOVINOS [Primary Care Provider] -
[2019-05-05] MEDS ORDERED: Sodium Chloride 0.9% 1000 ML 1,000 ML IV STA (23:07)
[2019-05-05] MEDS ORDERED: Sodium Chloride 0.9% 1000 ML 1,000 ML ONE (23:20)
[2019-05-05 23:30] LABS: BASOPHIL % 0.2 % (0.0-0.4); Basophil (Absolute #) 0.02 (0-0.4); Eosinophil % 4.2 % (0.00-5.0); Eosinophil (Absolute #) 0.37 (0-0.5); Granulocyte Absolute (ANC) 5.92 (1.4-6.9); Hematocrit 45.7 % (35-47); Hemoglobin 15.6 gm/dl (12.0-16.0); Lymphocyte (Absolute #) 2.04 (1.0-4.6); Lymphocytes % 23.4 % (24.0-44.0); Mean Cell Volume 93.1 fl (78-100); Mean Corpuscular Hemoglobin 31.8 pg (26-32); Mean Corpuscular Hgb Concent. 34.1 g/dl (32-36); Mean Platelet Volume 10.1 fl (6-9.5); Monocyte (Absolute #) 0.37 (0.0-1.3); Monocytes % 4.2 % (0.0-12.0); Platelet Count 204 K/mm3 (150-450); Red Blood Count 4.91 M/mm3 (4.1-5.4); Red Cell Distribution Width 11.9 % (11.5-14.0); White Blood Count 8.7 K/mm3 (4.0-10.5)
[2019-05-05 23:41] LABS: ALBUMIN 4.5 g/dL (3.5-5.0); ALKALINE PHOSPHATASE 55 U/L (38-126); BLOOD UREA NITROGEN 15 mg/dL (7-17); CHLORIDE 102 mmol/L (98-107); Calcium 9.7 mg/dL (8.4-10.2); Carbon Dioxide 28 mmol/L (22-30); Glucose 100 mg/dL (74-106); LIPASE 49 U/L (23-300); SGOT/AST 23 U/L (14-36); SGPT/ALT 18 U/L (0-35); SODIUM 141 mmol/L (137-145); Total Protein 7.8 g/dL (6.3-8.2)
[2019-05-06] LABS: Amourphous Crystal FEW /HPF (NEGATIVE); Appearance SLIGHTLY CLOUDY (CLEAR); Bacteria NONE SEEN /HPF (NEGATIVE); Bilirubin NEGATIVE (NEGATIVE); Blood NEGATIVE Ery/ul (0-5); Epithelial Cells RARE /HPF (FEW); Glucose NEGATIVE (NEGATIVE); Ketones NEGATIVE (NEGATIVE); Leukocyte Esterase NEGATIVE (NEGATIVE); Mucus SLIGHT /HPF (NEGATIVE); Nitrite NEGATIVE (NEGATIVE); Protein,Urine Dip NEGATIVE (Negative); Specific Gravity 1.021 (1.005-1.025); Urobilinogen 4 mg/dL (0-1)
[2019-05-06 00:13] LABS: Amphetamine,Urine NEGATIVE (NEGATIVE); Barbiturate,Urine NEGATIVE (NEGATIVE); Benzodiazepine,Urine NEGATIVE (NEGATIVE); Cocaine,Urine NEGATIVE (NEGATIVE); Methadone,Urine NEGATIVE (NEGATIVE); Opiate,Urine NEGATIVE (NEGATIVE); PCP,Urine NEGATIVE (NEGATIVE); THC,Urine NEGATIVE (NEGATIVE)
[2019-05-06] MEDS ORDERED: Zofran 4 MG/2 ML VIAL IV PRN (02:34)
[2019-05-06] MEDS ORDERED: Sodium Chloride 0.9% 1000 ML 1,000 ML IV SCH (02:34)
--- NOTE | 2019-05-06 08:56 | XRAY ---
Indication: Left upper quadrant pain/cramping. Multiple contiguous axial images obtained through the abdomen and pelvis using 80 cc Isovue 370 contrast only. Comparison: March 04, 2017. Lung bases remain clear. Heart is not enlarged. Stomach and small bowel loops are now fluid distended. Left abdomen small bowel loop distended up to 3.5 cm with more distal small bowel loops more normal in caliber. Findings either gastroenteritis versus partial small bowel obstruction. Normal colonic bowel gas with scattered fecal debris. No free fluid/air. Gallbladder partially contracted without gallstones. Remaining liver, pancreas, spleen, adrenal glands, kidneys, ureters, bladder, uterus, and aorta bladder appear unremarkable. No pathologic retroperitoneal lymphadenopathy. Osseous structures intact. No ventral or inguinal hernias. Impression: 1. Abnormal fluid distended stomach and proximal small bowel loops as detailed. Rule out gastroenteritis versus partial small bowel obstruction 2. Remaining CT abdomen/pelvis with contrast exam is negative. Comment: Preliminary interpretation was made by C. No critical discrepancy. CTDI 9.88
[2019-05-06] MEDS ORDERED: MEDICATION INTERVENTION MC SCH (09:45)
[2019-05-06] MEDS ORDERED: [UNRECOGNIZED DRUG - OTHER] SL SCH (10:00)
[2019-05-06] MEDS ORDERED: BUPRENORPHINE HCL SL SCH (10:00)
[2019-05-06] MEDS ORDERED: NALOXONE HCL SL SCH (10:00)
[2019-05-06] MEDS ORDERED: PATIENT OWN MEDICATION SL SCH (10:00)
[2019-05-06] MEDS ORDERED: NEURONTIN 300 MG PO SCH (10:00)
[2019-05-06] MEDS ORDERED: Nicoderm CQ 21 MG TOP SCH (10:00)
[2019-05-06 17:56] VITALS: BP 109/69; PULSE 74; O2SAT 94
--- NOTE | 2019-05-08 09:57 | HP ---
CHIEF COMPLAINT: Abdominal pain. HISTORY OF PRESENT ILLNESS: The patient is a 33 year-old white female who reports that yesterday about 1500 hours in the afternoon she began having sharp abdominal pain after a bowel movement. She said the bowel movement kind of burned somewhat. She has not had any vomiting or diarrhea with this but the abdominal pain was severe enough to bring her to the emergency room. In the emergency room, she had a CT scan which was concerning for possible small bowel obstruction. She was admitted to the hospital and made NPO for further evaluation and management. PAST MEDICAL/SURGICAL HISTORY: Significant for tubal ligation surgery as her only intra-abdominal surgery. She has been healthy other than history of narcotic addiction. She is currently on Suboxone for treatment for that. HOME MEDICATIONS: Suboxone. Neurontin 300 mg b.i.d. ALLERGIES: NKDA. PHYSICAL EXAMINATION: Revealed a well-nourished, well-developed 33 year-old white female currently in no obvious distress. Vital signs showed her temperature to be 98.1F, pulse 71, respiratory rate 16 and blood pressure 122/74. O2 saturation 97%. Pain intensity 5/10 on her initial evaluation in the emergency room. HEENT: Normocephalic, atraumatic. Pupils equal round reactive to light. Extraocular movements intact. Oropharynx is pink and moist. NECK: Supple without lymphadenopathy, thyromegaly or JVD. CHEST: Clear to auscultation with good air movement bilaterally. HEART: Regular rate and rhythm. ABDOMEN: Soft, minimally tender, good bowel sounds are present in all four quadrants. No palpable masses. No guarding or rebound. EXTREMITIES: Without cyanosis or clubbing. There is minimal edema in the hands. NEUROLOGIC: The patient is alert and oriented x3. LAB DATA AND TESTS: The patient's laboratory studies had shown urine drug screen to be negative. Her metabolic panel was entirely normal including lipase 49. UA with specific gravity 1.021, white blood cells 3 to 5, red blood cells 3 to 5. HCG was negative. Hemoglobin 15.6, white blood cell count 8,700, PLT count 204,000. Again CT scan of abdomen and pelvis revealed findings suggestive of small bowel obstruction level of mid small bowel. No perforation identified. Intrahepatic and extrahepatic biliary dilation more prominent on the previous study. No obstructing stone or masses identified. ASSESSMENT: A patient with possible small bowel obstruction with abdominal pain that seems to be resolving at this time. There are good bowel sounds present. We will get a surgical consultation and leave the patient at gut rest for now with IV fluid hydration. I believe this likely will resolve with just gut rest at this time but as previously indicated we will get a surgical consultation for their opinion as well.
--- NOTE | 2019-05-08 10:32 | CONS ---
CONSULT DATE: 05/06/2019 HISTORY: This 33 year-old had some upper abdominal pain. She said she had some tacos yesterday. She had CT scan that had some distended loops of bowel, some fluid around it with question of enteritis versus possible early obstruction. She denies any bowel movement today but she denies any current nausea or vomiting. She said the pain she had resolved. She denies any bloody stools. PAST MEDICAL HISTORY: She denied any chronic illnesses to me but as listed on her chart that she has had fracture, hepatitis and bipolar in the past. PAST SURGICAL HISTORY: Orthopedic surgery. Tubal in the past. She denied any other abdominal surgery. HOME MEDICATIONS: Suboxone, Neurontin. ALLERGIES: NKDA. FAMILY HISTORY: Negative for Crohn's. SOCIAL HISTORY: Smoker. Denies alcohol abuse. REVIEW OF SYSTEMS: Fourteen systems reviewed per admission assessment. Again, she denied any abdominal pain, nausea, vomiting, fever or chills currently. She is still sitting in her street clothes. Other systems negative or noncontributory as above and per preadmission questionnaire. PHYSICAL EXAMINATION: Vital signs stable. She is afebrile. GENERAL: No acute distress. HEENT: Sclera nonicteric. NECK: No JVD. CHEST: Equal excursion, nonlabored breathing. CVS: Regular rate and rhythm. ABDOMEN: Soft. No rebound. No guarding. No peritoneal signs. EXTREMITIES: No significant edema. NEURO: Alert, moving extremities grossly symmetrically. No gross motor deficits noted. LAB DATA AND TESTS: Her drug panel was clean. Liver function test and lipase were normal. test negative. White count 8.7, hemoglobin 15.6. IMPRESSION: A 33 year-old female with some upper abdominal pain now resolved, unclear etiology. It could be some gastritis, enteritis, ileus less likely partial obstruction. She only had a tubal in the past. She said her pain has completely resolved now and her white count is normal, afebrile and nontoxic. No emergent surgery necessary. Will start her on some ice chips and advance her diet if she starts passing gas or bowel movements. Again, no emergent surgery necessary. Question whether this is an ileus, enteritis versus other etiology. Continue medical management. No surgery necessary at this time. I will follow with you.
== END 2019-05-06 19:45 | disposition home or self-care (01) ==
LOC: ED 22:36 → MED SURG 05-06 02:14
PROVIDERS: ADMIT Family Medicine; ATTEND Family Medicine
DX: R10.9 Unspecified abdominal pain (principal)
CPT/HCPCS: 36000; 36415; 74177; 80053; 80307; 81001; 81025; 83690; 85025; 96360; 99285; G0378; A9270-GY

== ENCOUNTER 2020-04-30 10:51 | Emergency (ER) | payer OTHER ==
--- NOTE | 2020-04-30 11:19 | ERPHSYRPT ---
- History of Present Illness Time Seen by Provider: 04/30/20 10:52 Source: patient Exam Limitations: no limitations Patient Subjective Stated Complaint: closed finger in car window/. Triage Nursing Assessment: pt comes in with c/o finger injurty to her 4th finger on the right hand. pt states that her finger was caught in a car window. bruising noted to the fingernail or 4th finger. redness and swelling noted to the proximal end of the finger. pt is able to move finger and hand but with pain. no open areas or bleeding noted. Physician History: Patient is a 34-year-old female presents to our ED with complaints of pain to the right ring finger. Patient states her mother was raising the car window when her finger got caught. Injury occurred just prior to arrival. Pain described as an ache that is well localized. No radiation. Pain worse with finger motion and palpation. Pain improved with rest. No other injuries reported. Pain is otherwise healthy. Patient declined pain medication. She voiced no other complaints or concerns at this time. Occurred: just prior to arrival Method of Injury: other (Closed car window on finger.) Quality: aching (Patient declined pain medication.) Severity of Pain-Max: moderate Severity of Pain-Current: mild Extremities Pain Location: 4th finger: right Modifying Factors: Improves With: movement Associated Symptoms: none Allergies/Adverse Reactions: No Known Drug Allergies Allergy (Verified 05/05/19 22:47) Home Medications: Buprenorphine HCl/Naloxone HCl [Suboxone 8 mg-2 mg Tablet Sl] 0.5 each SL BID PRN 05/05/19 [History] Gabapentin [Neurontin] 300 mg PO BID 05/05/19 [History] Hx Tetanus, Diphtheria Vaccination/Date Given: Yes Hx Influenza Vaccination/Date Given: No Hx Pneumococcal Vaccination/Date Given: No Immunizations Up to Date: Yes Travel Risk - International Travel Have you traveled outside of the country in past 3 weeks: No - Coronavirus Screening Are you exhibiting any of the following symptoms?: No Close contact with a COVID-19 positive Pt in past 14-21 Days: No - Review of Systems Constitutional: No Symptoms, No Fever, No Chills Eyes: No Symptoms Ears, Nose, & Throat: No Symptoms Respiratory: No Symptoms, No Cough, No Dyspnea Cardiac: No Symptoms, No Chest Pain, No Edema, No Syncope Abdominal/Gastrointestinal: No Symptoms, No Abdominal Pain, No Nausea, No Vomiting, No Diarrhea Genitourinary Symptoms: No Symptoms, No Dysuria Musculoskeletal: No Symptoms, No Back Pain, No Neck Pain Skin: No Symptoms, No Rash Neurological: No Symptoms, No Dizziness, No Focal Weakness, No Sensory Changes Psychological: No Symptoms Endocrine: No Symptoms Hematologic/Lymphatic: No Symptoms Immunological/Allergic: No Symptoms All Other Systems: Reviewed and Negative - Past Medical History Pertinent Past Medical History: Yes Neurological History: No Pertinent History ENT History: No Pertinent History Cardiac History: No Pertinent History Respiratory History: No Pertinent History Endocrine Medical History: No Pertinent History Musculoskeletal History: No Pertinent History GI Medical History: No Pertinent History, Hepatitis History: No Pertinent History Psycho-Social History: Attention Deficit Disorder, Other Female Reproductive Disorders: Other Other Medical History: pt has history of multiple fractures in her life, Hep C, bipolar - Past Surgical History Past Surgical History: Yes Neuro Surgical History: No Pertinent History Cardiac: No Pertinent History Respiratory: No Pertinent History Gastrointestinal: No Pertinent History Genitourinary: No Pertinent History Musculoskeletal: Orthopedic Surgery Female Surgical History: Tubal Ligation Other Surgical History: right knee - Social History Smoking Status: Current every day smoker How long have you smoked: 10 years Exposure to second hand smoke: Yes Alcohol Use: None Drug Use: none Patient Lives Alone: Yes Significant Family History: no pertinent family hx - Female History Hx Now: No (tubes tied) - Nursing Vital Signs Nursing Vital Signs: Initial Vital Signs Temperature 97.7 F 04/30/20 10:52 Pulse Rate 96 H 04/30/20 10:52 Respiratory Rate 16 04/30/20 10:52 Blood Pressure 138/98 04/30/20 10:52 O2 Sat by Pulse Oximetry 98 04/30/20 10:52 Pain Scale Pain Intensity 6 - Physical Exam General Appearance: no apparent distress, alert Eyes, Ears, Nose, Throat Exam: moist mucous membranes Neck Exam: non-tender, supple Cardiovascular/Respiratory Exam: chest non-tender, normal breath sounds, regular rate/rhythm, no respiratory distress Abdominal Exam: non-tender, No guarding Back Exam: normal inspection, No vertebral tenderness Hand Exam: soft tissue tenderness, swelling (Soft tissue tenderness and swelling to right fourth digit. Range of motion limited due to pain. Small subungual hematoma at the fourth digit..), No deformity Neuro/Tendon Exam: normal sensation, normal motor functions Mental Status Exam: alert, oriented x 3, cooperative Skin Exam: normal color, warm, dry SpO2 Interpretation: normal SpO2: 98 O2 Delivery: Room Air - Course Nursing assessment & vital signs reviewed: Yes - Radiology Exams Hand X-ray Interpretation: Teleradiologist Report (Minimally displaced acute chip avulsion fracture injury arising off the dorsal aspect of the base of the distal phalanx of the right fourth finger. The fracture line extends into the mid articular surface of the DIP joint. No dislocation is seen.) Ordered Tests: Active Orders 24 hr Category Date Time Status Cold Application STAT Care 04/30/20 11:05 Active HAND (MINIMUM 3 VIEWS) Stat Exams 04/30/20 11:09 Completed - Progress Progress: improved Progress Note: 04/30/20 12:02 Patient reassessed. She is well. Patient declined pain medication. Patient has a very small subungual hematoma which she declined drainage. Patient placed in AlumaFoam splint. Ortho referral completed. Patient agrees to follow-up with orthopedics tomorrow as planned. Patient voices no other complaints at this time. Patient requesting discharge. Counseled pt/family regarding: diagnosis, need for follow-up, rad results - Departure Departure Disposition: Home Clinical Impression: Finger fracture, left, Subungual hematoma Condition: Stable Critical Care Time: No Referrals: ALYSSA VALDOVINOS [Primary Care Provider] - Additional Instructions: Discharge/Care Plan DAMIÁN ACOSTA was seen on 04/30/20 in the Emergency Room. The patient was counseled regarding Diagnosis,Lab results, Imaging studies, need for follow up and when to return to the Emergency Room. Prescriptions given: Discharge Note I have spoken with the patient and/or caregivers. I have explained the patient's condition, diagnosis and treatment plan based on the information available to me at this time. I have answered the patient's and/or caregiver's questions and addressed any concerns. The patient and/or caregivers have as good understanding of the patient's diagnosis, condition and treatment plan as can be expected at this point. The vital signs have been stable. The patient's condition is stable and appropriate for discharge from the emergency department. The patient will pursue further outpatient evaluation with the primary care physician or other designated or consulting physician as outlined in the discharge instructions. The patient and/or caregivers are agreeable to this plan of care and follow-up instructions have been explained in detail. The patient and/or caregivers have received these instruction. The patient/and or caregivers are aware that any significant change in condition or worsening of symptoms should prompt an immediate return to this or the closest emergency department or call 911. Outpatient Orders: Ortho Referral Time Frame: 1 Day, Facility: [facility]osp, Location: [facility]
--- NOTE | 2020-04-30 11:54 | XRAY ---
Exam: 3 views of the right hand from 04/30/2020. Comparison: None. Indication: Questionable fracture of right fourth finger. Findings: AP, oblique, and lateral radiographs of the right hand were obtained. The lateral radiograph reveals a corner avulsion fracture arising off the posterior aspect of the base of the distal phalanx of the right fourth finger, the fracture fragment measuring about 2.8 mm in AP dimension. The corner avulsion chip fracture does extend into the mid articular surface of the DIP joint of the right fourth finger. No dislocation is seen. There is minimal displacement of the avulsed fragment on the lateral radiograph. This avulsion fracture is not able to be detected on the AP image. No other fracture, dislocation, or bone or joint abnormality of the right hand is seen. Impression: 1. Minimally displaced acute chip avulsion fracture injury arising off the dorsal aspect of the base of the distal phalanx of the right fourth finger. The fracture line extends into the mid articular surface of the DIP joint. No dislocation is seen.
[2020-04-30 12:08] VITALS: BP 143/97; PULSE 88; O2SAT 97
== END 2020-04-30 12:12 | disposition home or self-care (01) ==
LOC: ED 10:51
DX: S62.604A Fracture of unspecified phalanx of right ring finger, initial encounter for closed fracture (principal); S60.141A Contusion of right ring finger with damage to nail, initial encounter; W23.0XXA Caught, crushed, jammed, or pinched between moving objects, initial encounter; Y93.9 Activity, unspecified; Y92.9 Unspecified place or not applicable
CPT/HCPCS: 73130; 99283

== ENCOUNTER 2020-07-30 14:44 | Emergency (ER) | payer OTHER ==
[2020-07-30] MEDS ORDERED: BABY ASPIRIN 81 MG CHEW PO ONE (14:55)
--- NOTE | 2020-07-30 14:55 | ERPHSYRPT ---
- History of Present Illness Time Seen by Provider: 07/30/20 14:52 Historian: patient Exam Limitations: no limitations Physician History: This is a 35-year-old white female with no known cardiac history who presents with 1 hour history of sharp chest pain that radiates into her left arm. Patient has no new stressors. She is not taking any new medications. Patient does not have a cough. She denies fever. She is never had anything like this before. Patient felt as though she was going to pass out. She did not pass out. Activities at Onset: none Quality: sharpness Location: substernal Chest Pain Radiation: arm (Left) Severity of Pain-Max: mild Severity of Pain-Current: mild Associated Symptoms: dizziness, No nausea, No vomiting, No shortness of breath Prior Chest Pain/Cardiac Workup: no prior chest pain Nitro Today/Relief: no nitro taken today Aspirin Treatment Today: no aspirin today Allergies/Adverse Reactions: No Known Drug Allergies Allergy (Verified 07/30/20 14:52) Home Medications: Buprenorphine HCl/Naloxone HCl [Suboxone 8 mg-2 mg Tablet Sl] 0.5 each SL BID PRN 05/05/19 [History] Gabapentin [Neurontin] 300 mg PO BID 05/05/19 [History] Hx Tetanus, Diphtheria Vaccination/Date Given: Yes Hx Influenza Vaccination/Date Given: No Hx Pneumococcal Vaccination/Date Given: No Travel Risk - International Travel Have you traveled outside of the country in past 3 weeks: No - Coronavirus Screening Are you exhibiting any of the following symptoms?: No Close contact with a COVID-19 positive Pt in past 14-21 Days: No - Review of Systems Constitutional: No Symptoms Eyes: No Symptoms Ears, Nose, & Throat: No Symptoms Respiratory: No Symptoms Cardiac: Chest Pain Abdominal/Gastrointestinal: No Symptoms Genitourinary Symptoms: No Symptoms Musculoskeletal: No Symptoms Skin: No Symptoms Neurological: Dizziness (She did not pass out but felt as though she was going to) Psychological: No Symptoms Endocrine: No Symptoms Hematologic/Lymphatic: No Symptoms Immunological/Allergic: No Symptoms All Other Systems: Reviewed and Negative - Past Medical History Pertinent Past Medical History: Yes Neurological History: No Pertinent History ENT History: No Pertinent History Cardiac History: No Pertinent History Respiratory History: No Pertinent History Endocrine Medical History: No Pertinent History Musculoskeletal History: No Pertinent History GI Medical History: No Pertinent History, Hepatitis History: No Pertinent History Psycho-Social History: Attention Deficit Disorder, Other Female Reproductive Disorders: Other Other Medical History: pt has history of multiple fractures in her life, Hep C, bipolar - Past Surgical History Past Surgical History: Yes Neuro Surgical History: No Pertinent History Cardiac: No Pertinent History Respiratory: No Pertinent History Gastrointestinal: No Pertinent History Genitourinary: No Pertinent History Musculoskeletal: Orthopedic Surgery Female Surgical History: Tubal Ligation Other Surgical History: right knee - Social History Smoking Status: Current every day smoker How long have you smoked: 10 years Exposure to second hand smoke: Yes Alcohol Use: None Drug Use: none Patient Lives Alone: Yes Significant Family History: no pertinent family hx - Nursing Vital Signs Nursing Vital Signs: Initial Vital Signs Temperature 99.0 F 07/30/20 14:47 Pulse Rate 86 07/30/20 14:47 Respiratory Rate 14 07/30/20 14:47 Blood Pressure 128/89 07/30/20 14:47 O2 Sat by Pulse Oximetry 100 07/30/20 14:47 Pain Scale Pain Intensity 0 - Physical Exam General Appearance: no apparent distress, alert, anxiety Eye Exam: PERRL/EOMI, eyes nml inspection Ears, Nose, Throat Exam: normal ENT inspection, moist mucous membranes Neck Exam: normal inspection, non-tender, supple, full range of motion Respiratory Exam: normal breath sounds, chest tenderness, lungs clear, airway intact, No respiratory distress Cardiovascular Exam: regular rate/rhythm, normal heart sounds, normal peripheral pulses Gastrointestinal/Abdomen Exam: soft, normal bowel sounds, No tenderness Pelvic Exam: not done Rectal Exam: not done Back Exam: normal inspection, normal range of motion, No CVA tenderness, No vertebral tenderness Extremity Exam: normal inspection, normal range of motion, pelvis stable Neurologic Exam: alert, oriented x 3, cooperative, 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 No acute isc hemic changes on today's EKG and no changes from the prior EKG.) Ordered Tests: Active Orders 24 hr Category Date Time Status Dental Office Coordinator STAT Care 07/30/20 14:56 Active EKG-ER Only STAT Care 07/30/20 14:55 Active IV Insertion STAT Care 07/30/20 14:55 Active Pulse Oximetry (ED) STAT Care 07/30/20 14:55 Active CHEST 1 VIEW (PORTABLE) Stat Exams 07/30/20 14:55 Completed CBC W DIFF Stat Lab 07/30/20 15:05 Completed CMP Stat Lab 07/30/20 15:05 Completed D-DIMER QUANTITATIVE Stat Lab 07/30/20 15:05 Completed NT PRO BNP Stat Lab 07/30/20 15:05 Completed PROTIME WITH INR Stat Lab 07/30/20 15:05 Completed TROPONIN Q3H Lab 07/30/20 15:05 Completed TROPONIN Q3H Lab 07/30/20 18:00 Ordered TROPONIN Q3H Lab 07/30/20 21:00 Ordered TROPONIN Q3H Lab 07/31/20 00:00 Ordered TROPONIN Q3H Lab 07/31/20 03:00 Ordered UA W/RFX UR CULTURE Stat Lab 07/30/20 15:05 Received Urine Triage Profile Stat Lab 07/30/20 15:05 Completed Medication Summary Discontinued Medications Generic Name Dose Route Start Last Admin Trade Name Freq PRN Reason Stop Dose Admin Aspirin 324 mg 07/30/20 14:55 07/30/20 15:11 Baby Aspirin 81 Mg Chew PO 07/30/20 14:56 324 mg STAT ONE Administration Aspirin Confirm 07/30/20 15:10 Baby Aspirin 81 Mg Chew Administered 07/30/20 15:11 Dose 324 mg .ROUTE .STK-MED ONE Lab/Rad Data: Laboratory Result Diagrams 07/30/20 15:05 07/30/20 15:05 Laboratory Results 07/30/20 07/30/20 07/30/20 Range/Units 15:05 15:05 15:05 WBC (4.0-10.5) K/mm3 RBC (4.1-5.4) M/mm3 Hgb (12.0-16.0) gm/dl Hct (35-47) % MCV (78-100) fl MCH (26-32) pg MCHC (32-36) g/dl RDW (11.5-14.0) % Plt Count (150-450) K/mm3 MPV (7.5-11.0) fl Gran % (36.0-66.0) % Eos # (Auto) (0-0.5) Absolute Lymphs (auto) (1.0-4.6) Absolute Monos (auto) (0.0-1.3) Lymphocytes % (24.0-44.0) % Monocytes % (0.0-12.0) % Eosinophils % (0.00-5.0) % Basophils % (0.0-0.4) % Absolute Granulocytes (1.4-6.9) Basophils # (0-0.4) PT 13.1 H (9.95-12.35) SECONDS INR 1.16 (0.8-3.0) D-Dimer 320 (215-500) ng/mL Sodium 137 (137-145) mmol/L Potassium 4.1 (3.5-5.1) mmol/L Chloride 104 (98-107) mmol/L Carbon Dioxide 26 (22-30) mmol/L Anion Gap 11.5 (5-15) MEQ/L BUN 9 (7-17) mg/dL Creatinine 0.56 (0.52-1.04) mg/dL Estimated GFR > 60.0 ML/MIN Glucose 103 (74-106) mg/dL Calcium 8.7 (8.4-10.2) mg/dL Total Bilirubin 0.50 (0.2-1.3) mg/dL AST 18 (14-36) U/L ALT 16 (0-35) U/L Alkaline Phosphatase 44 (38-126) U/L Troponin I < 0.012 (0.000-0.034) ng/mL NT-Pro-B Natriuret Pep 59.0 (0-450) pg/mL Serum Total Protein 7.2 (6.3-8.2) g/dL Albumin 4.1 (3.5-5.0) g/dL Urine Opiates Level (NEGATIVE) Ur Methadone (NEGATIVE) Urine Barbiturates (NEGATIVE) Ur Phencyclidine (PCP) (NEGATIVE) Urine Amphetamine (NEGATIVE) U Benzodiazepine Level (NEGATIVE) Urine Cocaine (NEGATIVE) Urine Marijuana (THC) (NEGATIVE) 07/30/20 07/30/20 Range/Units 15:05 15:05 WBC 8.1 (4.0-10.5) K/mm3 RBC 4.60 (4.1-5.4) M/mm3 Hgb 14.2 (12.0-16.0) gm/dl Hct 43.6 (35-47) % MCV 94.8 (78-100) fl MCH 30.9 (26-32) pg MCHC 32.6 (32-36) g/dl RDW 11.4 L (11.5-14.0) % Plt Count 196 (150-450) K/mm3 MPV 9.7 (7.5-11.0) fl Gran % 70.4 H (36.0-66.0) % Eos # (Auto) 0.16 (0-0.5) Absolute Lymphs (auto) 1.82 (1.0-4.6) Absolute Monos (auto) 0.37 (0.0-1.3) Lymphocytes % 22.6 L (24.0-44.0) % Monocytes % 4.6 (0.0-12.0) % Eosinophils % 2.0 (0.00-5.0) % Basophils % 0.4 (0.0-0.4) % Absolute Granulocytes 5.69 (1.4-6.9) Basophils # 0.03 (0-0.4) PT (9.95-12.35) SECONDS INR (0.8-3.0) D-Dimer (215-500) ng/mL Sodium (137-145) mmol/L Potassium (3.5-5.1) mmol/L Chloride (98-107) mmol/L Carbon Dioxide (22-30) mmol/L Anion Gap (5-15) MEQ/L BUN (7-17) mg/dL Creatinine (0.52-1.04) mg/dL Estimated GFR ML/MIN Glucose (74-106) mg/dL Calcium (8.4-10.2) mg/dL Total Bilirubin (0.2-1.3) mg/dL AST (14-36) U/L ALT (0-35) U/L Alkaline Phosphatase (38-126) U/L Troponin I (0.000-0.034) ng/mL NT-Pro-B Natriuret Pep (0-450) pg/mL Serum Total Protein (6.3-8.2) g/dL Albumin (3.5-5.0) g/dL Urine Opiates Level NEGATIVE (NEGATIVE) Ur Methadone NEGATIVE (NEGATIVE) Urine Barbiturates NEGATIVE (NEGATIVE) Ur Phencyclidine (PCP) NEGATIVE (NEGATIVE) Urine Amphetamine NEGATIVE (NEGATIVE) U Benzodiazepine Level NEGATIVE (NEGATIVE) Urine Cocaine NEGATIVE (NEGATIVE) Urine Marijuana (THC) NEGATIVE (NEGATIVE) - Progress Progress: improved, re-examined Air Movement: good Progress Note: 07/30/20 15:33 Chest x-ray shows no acute pulmonary process Blood Culture(s) Obtained: Yes Counseled pt/family regarding: lab results, diagnosis, need for follow-up, rad results - Departure Departure Disposition: Home Clinical Impression: Non-cardiac chest pain Condition: Stable Critical Care Time: No Referrals: ALYSSA VALDOVINOS [Primary Care Provider] - Additional Instructions: Take all your regular medications as prescribed. Follow-up with your primary care provider for further management and evaluation.
[2020-07-30] MEDS ORDERED: BABY ASPIRIN 81 MG CHEW ONE (15:10)
[2020-07-30 15:12] LABS: Absolute Neutrophil Ct (ANC) 5.69 (1.4-6.9); BASOPHIL % 0.4 % (0.0-0.4); Basophil (Absolute #) 0.03 (0-0.4); Eosinophil (Absolute #) 0.16 (0-0.5); Hematocrit 43.6 % (35-47); Hemoglobin 14.2 gm/dl (12.0-16.0); Lymphocyte (Absolute #) 1.82 (1.0-4.6); Lymphocytes % 22.6 % (24.0-44.0); Mean Cell Volume 94.8 fl (78-100); Mean Corpuscular Hemoglobin 30.9 pg (26-32); Mean Corpuscular Hgb Concent. 32.6 g/dl (32-36); Mean Platelet Volume 9.7 fl (7.5-11.0); Monocyte (Absolute #) 0.37 (0.0-1.3); Monocytes % 4.6 % (0.0-12.0); Neutrophil % 70.4 % (36.0-66.0); Platelet Count 196 K/mm3 (150-450); Red Cell Distribution Width 11.4 % (11.5-14.0); White Blood Count 8.1 K/mm3 (4.0-10.5)
[2020-07-30 15:19] LABS: INR 1.16 (0.8-3.0); PROTIME 13.1 SECONDS (9.95-12.35)
--- NOTE | 2020-07-30 15:24 | XRAY ---
Indication: Tachycardia and light headed one day. Comparison: July 08, 2017. Portable chest again demonstrates normal heart, lungs, and bony thorax.
[2020-07-30 15:32] LABS: ALBUMIN 4.1 g/dL (3.5-5.0); ALKALINE PHOSPHATASE 44 U/L (38-126); ANION GAP 11.5 MEQ/L (5-15); BLOOD UREA NITROGEN 9 mg/dL (7-17); CHLORIDE 104 mmol/L (98-107); Calcium 8.7 mg/dL (8.4-10.2); Carbon Dioxide 26 mmol/L (22-30); Creatinine 1 0.56 mg/dL (0.52-1.04); EST GLOMERULAR FILTRATION RATE > 60.0 ML/MIN; Glucose 103 mg/dL (74-106); Potassium 4.1 mmol/L (3.5-5.1); SGOT/AST 18 U/L (14-36); SGPT/ALT 16 U/L (0-35); SODIUM 137 mmol/L (137-145); Total Protein 7.2 g/dL (6.3-8.2)
[2020-07-30 16:18] LABS: Amphetamine,Urine NEGATIVE (NEGATIVE); Barbiturate,Urine NEGATIVE (NEGATIVE); Benzodiazepine,Urine NEGATIVE (NEGATIVE); Cocaine,Urine NEGATIVE (NEGATIVE); Methadone,Urine NEGATIVE (NEGATIVE); Opiate,Urine NEGATIVE (NEGATIVE); PCP,Urine NEGATIVE (NEGATIVE); THC,Urine NEGATIVE (NEGATIVE)
[2020-07-30 16:59] VITALS: BP 132/96; PULSE 82; O2SAT 97
[2020-07-30 18:16] LABS: Appearance CLEAR (CLEAR); Bilirubin NEGATIVE (NEGATIVE); Dipstick done @ ? MAIN LAB; Glucose NEGATIVE (NEGATIVE); Ketones NEGATIVE (NEGATIVE); Nitrite NEGATIVE (NEGATIVE); Protein,Urine Dip NEGATIVE (Negative); RBC NEGATIVE Ery/ul (0-5); Urobilinogen 0.2 mg/dL (0-1)
[2020-07-30 18:17] LABS: Mucus SLIGHT /HPF (NEGATIVE)
[2020-07-30 18:18] LABS: Bacteria NONE SEEN /HPF (NEGATIVE); Epithelial Cells RARE /HPF (FEW); RBC NONE SEEN /HPF (0-2); WBC NONE SEEN /HPF (0-5)
== END 2020-07-30 17:00 | disposition home or self-care (01) ==
LOC: ED 14:44
DX: R07.89 Other chest pain (principal); R42 Dizziness and giddiness; F17.200 Nicotine dependence, unspecified, uncomplicated; F31.9 Bipolar disorder, unspecified; Z79.899 Other long term (current) drug therapy
CPT/HCPCS: 36000; 36415; 71045; 80053; 80307; 81001; 83880; 84484; 85025; 85379; 85610; 93005; 93041; 94760; 99284; A9270-GY

== ENCOUNTER 2021-05-02 08:46 | Emergency (ER) | payer OTHER ==
--- NOTE | 2021-05-02 08:48 | ERPHSYRPT ---
- History of Present Illness Time Seen by Provider: 05/02/21 08:48 Source: patient Exam Limitations: no limitations Physician History: This is a 35-year-old white female who fell a few days ago and injured her right knee per her report. She has been walking on it but it hurts. There are no other complaints at this time. Method of Injury: fell Severity of Pain-Max: mild Severity of Pain-Current: mild Lower Extremities Pain: knee: right Modifying Factors: Improves With: movement, rest Associated Symptoms: other (Patient is able to bear weight but it hurts to do so.) Allergies/Adverse Reactions: No Known Drug Allergies Allergy (Verified 05/02/21 09:11) Home Medications: Buprenorphine HCl/Naloxone HCl [Suboxone 8 mg-2 mg Tablet Sl] 0.5 each SL BID PRN 05/05/19 [History] Gabapentin [Neurontin] 300 mg PO BID 05/05/19 [History] Hx Tetanus, Diphtheria Vaccination/Date Given: Yes Hx Influenza Vaccination/Date Given: No Hx Pneumococcal Vaccination/Date Given: No Travel Risk - International Travel Have you traveled outside of the country in past 3 weeks: No - Coronavirus Screening Are you exhibiting any of the following symptoms?: No Close contact with a COVID-19 positive Pt in past 14-21 Days: No - Review of Systems Constitutional: No Symptoms Eyes: No Symptoms Ears, Nose, & Throat: No Symptoms Respiratory: No Symptoms Cardiac: No Symptoms Abdominal/Gastrointestinal: No Symptoms Genitourinary Symptoms: No Symptoms Musculoskeletal: Fall, Injury (Right knee) Neurological: No Symptoms Psychological: No Symptoms Endocrine: No Symptoms Hematologic/Lymphatic: No Symptoms Immunological/Allergic: No Symptoms All Other Systems: Reviewed and Negative - Past Medical History Pertinent Past Medical History: Yes Neurological History: No Pertinent History ENT History: No Pertinent History Cardiac History: No Pertinent History Respiratory History: No Pertinent History Endocrine Medical History: No Pertinent History Musculoskeletal History: No Pertinent History GI Medical History: No Pertinent History, Hepatitis History: No Pertinent History Psycho-Social History: Attention Deficit Disorder, Other Female Reproductive Disorders: Other Other Medical History: pt has history of multiple fractures in her life, Hep C, bipolar - Past Surgical History Past Surgical History: Yes Neuro Surgical History: No Pertinent History Cardiac: No Pertinent History Respiratory: No Pertinent History Gastrointestinal: No Pertinent History Genitourinary: No Pertinent History Musculoskeletal: Orthopedic Surgery Female Surgical History: Tubal Ligation Other Surgical History: right knee - Social History Smoking Status: Current every day smoker How long have you smoked: 10 years Exposure to second hand smoke: Yes Alcohol Use: None Drug Use: none Patient Lives Alone: Yes Significant Family History: no pertinent family hx - Nursing Vital Signs Nursing Vital Signs: Initial Vital Signs Temperature 97.0 F 05/02/21 08:57 Pulse Rate 74 05/02/21 08:57 Respiratory Rate 18 05/02/21 08:57 Blood Pressure 116/86 05/02/21 08:57 O2 Sat by Pulse Oximetry 98 05/02/21 08:57 Pain Scale Pain Intensity 8 - Physical Exam General Appearance: no apparent distress, alert, anxiety Neck Exam: normal inspection, non-tender, supple, full range of motion Cardiovascular/Respiratory Exam: chest non-tender, no respiratory distress Gastrointestinal/Abdominal Exam: non-tender Back Exam: normal inspection, normal range of motion, No CVA tenderness, No vertebral tenderness Hips Exam: bilateral: non-tender, normal inspection, normal range of motion, no evidence of injury Legs Exam: bilateral leg: non-tender, normal inspection, normal range of motion, no evidence of injury Knees Exam: right knee: soft tissue tenderness, left knee: non-tender, bilateral knee: normal inspection, normal range of motion, no evidence of injury Ankle Exam: bilateral ankle: non-tender, normal inspection, normal range of motion, no evidence of injury Foot Exam: bilateral foot: non-tender, normal inspection, normal range of motion, no evidence of injury Neuro/Tendon Exam: normal sensation, normal motor functions, normal tendon functions, responds to pain, no evidence tendon injury Mental Status Exam: alert, oriented x 3, cooperative Skin Exam: normal color, warm, dry SpO2 Interpretation: normal O2 Delivery: Room Air - Course Nursing assessment & vital signs reviewed: Yes Ordered Tests: Active Orders 24 hr Category Date Time Status KNEE (3 VIEWS) Stat Exams 05/02/21 09:12 Completed - Progress Progress Note: 05/02/21 10:26 X-ray right knee shows no acute fracture or dislocation. Small nonspecific effusion present Counseled pt/family regarding: diagnosis, need for follow-up, rad results - Departure Departure Disposition: Home Clinical Impression: Right knee pain Condition: Stable Critical Care Time: No Referrals: ALYSSA VALDOVINOS [Primary Care Provider] - Instructions: Knee Pain Additional Instructions: Ice pack to area 3 times a day for the next 48 hours. Take your medication as prescribed. Follow-up with [facility] or your primary care physician for persistent symptoms. Prescriptions: Cyclobenzaprine HCl 10 mg [Cyclobenzaprine 10 MG] 10 mg PO TID #10 tablet Naproxen 500 mg [Naprosyn 500 MG] 500 mg PO BID #10 tablet
[2021-05-02 09:10] VITALS: BP 116/86; PULSE 74; O2SAT 98
--- NOTE | 2021-05-02 09:56 | XRAY ---
Indication: Pain following fall 3 days ago. Comparison: None 3 view right knee obtained. Lateral view limited due to suboptimal positioning. Small nonspecific effusion. No other bony, articular, or soft tissue abnormalities.
== END 2021-05-02 10:27 | disposition home or self-care (01) ==
LOC: ED 08:46
DX: M25.561 Pain in right knee (principal); W18.30XD Fall on same level, unspecified, subsequent encounter
CPT/HCPCS: 73562; 99283

== ENCOUNTER 2021-05-02 17:55 | Emergency (ER) | payer OTHER ==
[2021-05-02 18:14] VITALS: BP 115/95; PULSE 98; O2SAT 98
--- NOTE | 2021-05-02 18:16 | ERPHSYRPT ---
- History of Present Illness Time Seen by Provider: 05/02/21 18:10 Source: patient Exam Limitations: no limitations Physician History: This is a 35-year-old white female who was seen earlier today with complaints of right knee pain. We performed an x-ray of the right knee which showed no acute fracture or dislocation. 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 She returns this evening with complaint of left heel pain. She also states that her right knee still hurts. I asked her if she picked up her prescriptions and she said yes. However, 5 minutes before I went in to see her, the nurse had called the pharmacy and they informed us that she has not picked up her prescription. Patient walked in to the emergency department room on her own without evidence of any kind of limp or pain issue. Method of Injury: other (No injury) Quality: constant, aching Severity of Pain-Max: mild Severity of Pain-Current: mild Lower Extremities Pain: thigh: right, heel: left Modifying Factors: Improves With: movement Associated Symptoms: none Allergies/Adverse Reactions: No Known Drug Allergies Allergy (Verified 05/02/21 18:05) Hx Tetanus, Diphtheria Vaccination/Date Given: Yes Hx Influenza Vaccination/Date Given: No Hx Pneumococcal Vaccination/Date Given: No Travel Risk - International Travel Have you traveled outside of the country in past 3 weeks: No - Coronavirus Screening Are you exhibiting any of the following symptoms?: No Close contact with a COVID-19 positive Pt in past 14-21 Days: No - Vaccine Status Have you recieved a Covid-19 vaccination: No - Review of Systems Constitutional: No Symptoms Eyes: No Symptoms Ears, Nose, & Throat: No Symptoms Respiratory: No Symptoms Cardiac: No Symptoms Abdominal/Gastrointestinal: No Symptoms Genitourinary Symptoms: No Symptoms Musculoskeletal: Other (Right knee pain and left heel pain) Skin: No Symptoms Neurological: No Symptoms Psychological: No Symptoms Endocrine: No Symptoms Hematologic/Lymphatic: No Symptoms Immunological/Allergic: No Symptoms All Other Systems: Reviewed and Negative - Past Medical History Pertinent Past Medical History: Yes Neurological History: No Pertinent History ENT History: No Pertinent History Cardiac History: No Pertinent History Respiratory History: No Pertinent History Endocrine Medical History: No Pertinent History Musculoskeletal History: No Pertinent History GI Medical History: No Pertinent History, Hepatitis History: No Pertinent History Psycho-Social History: Attention Deficit Disorder, Other Female Reproductive Disorders: Other Other Medical History: pt has history of multiple fractures in her life, Hep C, bipolar - Past Surgical History Past Surgical History: Yes Neuro Surgical History: No Pertinent History Cardiac: No Pertinent History Respiratory: No Pertinent History Gastrointestinal: No Pertinent History Genitourinary: No Pertinent History Musculoskeletal: Orthopedic Surgery Female Surgical History: Tubal Ligation Other Surgical History: right knee - Social History Smoking Status: Current every day smoker How long have you smoked: 10 years Exposure to second hand smoke: Yes Alcohol Use: None Drug Use: none Patient Lives Alone: Yes Significant Family History: no pertinent family hx - Physical Exam General Appearance: no apparent distress, alert Eyes, Ears, Nose, Throat Exam: normal ENT inspection, moist mucous membranes Neck Exam: normal inspection, non-tender, supple, full range of motion Cardiovascular/Respiratory Exam: chest non-tender, no respiratory distress Gastrointestinal/Abdominal Exam: non-tender Back Exam: normal inspection, normal range of motion, No CVA tenderness, No vertebral tenderness Hips Exam: bilateral: non-tender, normal inspection, normal range of motion, no evidence of injury Legs Exam: bilateral leg: non-tender, normal inspection, normal range of motion, no evidence of injury Knees Exam: right knee: soft tissue tenderness, left knee: non-tender, bilateral knee: normal inspection, normal range of motion, no evidence of injury Ankle Exam: bilateral ankle: non-tender, normal inspection, normal range of motion, no evidence of injury Foot Exam: right foot: non-tender, soft tissue tenderness (Left heel), bilateral foot: normal inspection, normal range of motion, no evidence of injury Neuro/Tendon Exam: normal sensation, normal motor functions, normal tendon functions Mental Status Exam: alert, oriented x 3, cooperative Skin Exam: normal color, warm, dry SpO2 Interpretation: normal O2 Delivery: Room Air - Course Nursing assessment & vital signs reviewed: Yes - Progress Progress: unchanged, pain not gone completely Progress Note: 05/02/21 18:15 Medical decision making: This patient was offered an x-ray of her left foot/heel. She declines. Patient did not poultry picking machine tender her prescriptions even though she had stated she did. I told her that she needed to poultry picking machine tender her prescriptions and try the medication before she states that they do not work. Again, the patient declines x-ray of her left foot/heel. Patient then left the emergency department 05/02/21 18:16 Counseled pt/family regarding: diagnosis - Departure Departure Disposition: Home Clinical Impression: Pain of left heel Condition: Stable Critical Care Time: No Referrals: ALYSSA VALDOVINOS [Primary Care Provider] - Additional Instructions: Fill your prescriptions that were written for you earlier today. Follow-up with your primary care physician for further management.
== END 2021-05-02 18:17 | disposition left against medical advice (07) ==
LOC: ED 17:55
DX: M79.672 Pain in left foot (principal)
CPT/HCPCS: 99283

== ENCOUNTER 2021-05-12 13:44 | Emergency (ER) | payer OTHER ==
[2021-05-12 15:08] LABS: Appearance CLOUDY (CLEAR); Bacteria FEW /HPF (NEGATIVE); Bilirubin SMALL (NEGATIVE); Blood NEGATIVE Ery/ul (0-5); Epithelial Cells RARE /HPF (FEW); Glucose NEGATIVE (NEGATIVE); Ketones NEGATIVE (NEGATIVE); Leukocyte Esterase SMALL (NEGATIVE); Mucus MANY /HPF (NEGATIVE); Nitrite POSITIVE (NEGATIVE); Protein,Urine Dip 30 (Negative); RBC 0-2 /HPF (0-2); Specific Gravity 1.023 (1.005-1.025); Urobilinogen 4 mg/dL (0-1)
[2021-05-12] MEDS ORDERED: Sodium Chloride 0.9% 1000 ML 1,000 ML IV STA (15:16)
[2021-05-12] MEDS ORDERED: Sodium Chloride 0.9% 1000 ML 1,000 ML ONE (15:18)
[2021-05-12 15:21] LABS: Barbiturate,Urine NEGATIVE (NEGATIVE); Benzodiazepine,Urine NEGATIVE (NEGATIVE); Cocaine,Urine NEGATIVE (NEGATIVE); Methadone,Urine POSITIVE (NEGATIVE); Opiate,Urine NEGATIVE (NEGATIVE); PCP,Urine NEGATIVE (NEGATIVE); THC,Urine POSITIVE (NEGATIVE)
[2021-05-12 16:14] LABS: Amphetamine,Urine POSITIVE (NEGATIVE)
--- NOTE | 2021-05-12 16:43 | ERPHSYRPT ---
- History of Present Illness Source: patient Exam Limitations: other (Patient not cooperative) Patient Subjective Stated Complaint: "I dont know, back pain for a while now." Triage Nursing Assessment: pt to ED c/o "I dont know I just need to be seen. I have back pain." when asked when pain started pt stated "I dont know a long time." pt very hesitant and unwilling to answer questions. growing frustrated with RN asking questions and doing assessment. rates 10/10 back pain that is not different in any way from chronic pain. denies injury. Timing/Duration: week(s), worse Severity: moderate, severe Associated Symptoms: weakness Hx Tetanus, Diphtheria Vaccination/Date Given: No Hx Influenza Vaccination/Date Given: No Hx Pneumococcal Vaccination/Date Given: No Immunizations Up to Date: No - History of Present Illness Time Seen by Provider: 05/12/21 13:45 Physician History: 35 years old female presented in the ER with chief complaint of aches and pains and especially back pain. Patient reports she is not feeling well. When asked further questions she refused to answer any. She also refused to have examination done. Denies alcohol/drug use. Denies any suicidal or homicidal ideations. History is limited (RAFIQ DANIEL) Allergies/Adverse Reactions: No Known Drug Allergies Allergy (Verified 05/02/21 18:05) Travel Risk - International Travel Have you traveled outside of the country in past 3 weeks: No - Coronavirus Screening Are you exhibiting any of the following symptoms?: No Close contact with a COVID-19 positive Pt in past 14-21 Days: No - Vaccine Status Have you recieved a Covid-19 vaccination: No - Review of Systems Constitutional: Fatigue, Weakness Musculoskeletal: Back Pain Psychological: Anxiety, Depression All Other Systems: Unable due to condition - Past Medical History Pertinent Past Medical History: Yes Neurological History: No Pertinent History ENT History: No Pertinent History Cardiac History: No Pertinent History Respiratory History: No Pertinent History Endocrine Medical History: No Pertinent History Musculoskeletal History: No Pertinent History GI Medical History: No Pertinent History, Hepatitis History: No Pertinent History Psycho-Social History: Attention Deficit Disorder, Other Female Reproductive Disorders: Other Other Medical History: pt has history of multiple fractures in her life, Hep C, bipolar - Past Surgical History Past Surgical History: Yes Neuro Surgical History: No Pertinent History Cardiac: No Pertinent History Respiratory: No Pertinent History Gastrointestinal: No Pertinent History Genitourinary: No Pertinent History Musculoskeletal: Orthopedic Surgery Female Surgical History: Tubal Ligation Other Surgical History: right knee - Social History Smoking Status: Former smoker How long have you smoked: 10 years Exposure to second hand smoke: Yes Alcohol Use: None Drug Use: none Patient Lives Alone: Yes Significant Family History: no pertinent family hx - Female History Hx Last Menstrual Period: week ago Hx Now: No (tubal) - Physical Exam General Appearance: no apparent distress, alert Eye Exam: eyes nml inspection Ears, Nose, Throat Exam: normal ENT inspection Neck Exam: normal inspection Extremity Exam: normal inspection, normal range of motion Neurologic Exam: alert, oriented x 3, No cooperative Skin Exam: normal color SpO2 Interpretation: normal SpO2: 99 O2 Delivery: Room Air - Nursing Vital Signs Nursing Vital Signs: Initial Vital Signs Temperature 99 F 05/12/21 14:01 Pulse Rate 111 H 05/12/21 14:01 Respiratory Rate 15 05/12/21 14:01 Blood Pressure 102/76 05/12/21 14:01 O2 Sat by Pulse Oximetry 99 05/12/21 14:01 Pain Scale Pain Intensity 0 Ordered Tests: Active Orders 24 hr Category Date Time Status Clean Catch Urine Specimen STAT Care 05/12/21 14:43 Active CBC W DIFF Stat Lab 05/12/21 18:00 Completed CMP Stat Lab 05/12/21 18:04 Completed CULTURE,URINE Stat Lab 05/12/21 14:59 Received HCG,QUALITATIVE URINE Stat Lab 05/12/21 15:16 Completed UA W/RFX UR CULTURE Stat Lab 05/12/21 14:59 Completed Urine Triage Profile Stat Lab 05/12/21 Completed Medication Summary Discontinued Medications Generic Name Dose Route Start Last Admin Trade Name Freq PRN Reason Stop Dose Admin Sodium Chloride 1,000 mls @ 999 mls/hr 05/12/21 15:16 05/12/21 16:50 Sodium Chloride 0.9% 1000 Ml IV 05/12/21 16:16 Infused .Q1H1M STA Infusion Sodium Chloride Confirm 05/12/21 15:18 Sodium Chloride 0.9% 1000 Ml Administered 05/12/21 15:19 Dose 1,000 mls @ ud .ROUTE .STK-MED ONE Ceftriaxone Sodium/Dextrose 2 g in 50 mls @ 100 mls/hr 05/12/21 16:55 05/12/21 17:48 Rocephin 2 Gm-D5w 50ml Bag IV 05/12/21 17:24 Infused STAT STA Infusion Ceftriaxone Sodium/Dextrose Confirm 05/12/21 17:10 Rocephin 2 Gm-D5w 50ml Bag Administered 05/12/21 17:11 Dose 2 g in 50 mls @ ud IV .STK-MED ONE Lab/Rad Data: Laboratory Result Diagrams 05/12/21 18:00 05/12/21 18:04 Laboratory Results 05/12/21 05/12/21 05/12/21 Range/Units Unknown 18:04 18:00 WBC 8.7 (4.0-10.5) K/mm3 RBC 5.05 (4.1-5.4) M/mm3 Hgb 14.9 (12.0-16.0) gm/dl Hct 45.0 (35-47) % MCV 89.1 (78-100) fl MCH 29.5 (26-32) pg MCHC 33.1 (32-36) g/dl RDW 12.2 (11.5-14.0) % Plt Count 188 (150-450) K/mm3 MPV 10.1 (7.5-11.0) fl Gran % 51.8 (36.0-66.0) % Eos # (Auto) 0.33 (0-0.5) Absolute Lymphs (auto) 3.51 (1.0-4.6) Absolute Monos (auto) 0.33 (0.0-1.3) Lymphocytes % 40.3 (24.0-44.0) % Monocytes % 3.8 (0.0-12.0) % Eosinophils % 3.8 (0.00-5.0) % Basophils % 0.3 (0.0-0.4) % Absolute Granulocytes 4.52 (1.4-6.9) Basophils # 0.03 (0-0.4) Sodium 142 (137-145) mmol/L Potassium 3.7 (3.5-5.1) mmol/L Chloride 110 H (98-107) mmol/L Carbon Dioxide 20 L (22-30) mmol/L Anion Gap 15.8 H (5-15) MEQ/L BUN 17 (7-17) mg/dL Creatinine 0.71 (0.52-1.04) mg/dL Estimated GFR > 60.0 ML/MIN Glucose 83 (74-106) mg/dL Calcium 8.4 (8.4-10.2) mg/dL Total Bilirubin 0.40 (0.2-1.3) mg/dL AST 15 (14-36) U/L ALT 10 (0-35) U/L Alkaline Phosphatase 56 (38-126) U/L Serum Total Protein 6.9 (6.3-8.2) g/dL Albumin 3.9 (3.5-5.0) g/dL Urine Color (YELLOW) Urine Appearance (CLEAR) Urine pH (5-6) Ur Specific [place] (1.005-1.025) Urine Protein (Negative) Urine Ketones (NEGATIVE) Urine Blood (0-5) Avinash/ul Urine Nitrite (NEGATIVE) Urine Bilirubin (NEGATIVE) Urine Urobilinogen (0-1) mg/dL Ur Leukocyte Esterase (NEGATIVE) Urine WBC (Auto) (0-5) /HPF Urine RBC (Auto) (0-2) /HPF U Epithel Cells (Auto) (FEW) /HPF Urine Bacteria (Auto) (NEGATIVE) /HPF Urine Mucus (Auto) (NEGATIVE) /HPF Urine Culture Reflexed (NO) Urine Glucose (NEGATIVE) mg/dL Urine HCG, Qual (Negative) Urine Opiates Level NEGATIVE (NEGATIVE) Ur Methadone POSITIVE (NEGATIVE) Urine Barbiturates NEGATIVE (NEGATIVE) Ur Phencyclidine (PCP) NEGATIVE (NEGATIVE) Urine Amphetamine POSITIVE (NEGATIVE) U Benzodiazepine Level NEGATIVE (NEGATIVE) Urine Cocaine NEGATIVE (NEGATIVE) Urine Marijuana (THC) POSITIVE (NEGATIVE) 05/12/21 05/12/21 Range/Units 15:16 14:59 WBC (4.0-10.5) K/mm3 RBC (4.1-5.4) M/mm3 Hgb (12.0-16.0) gm/dl Hct (35-47) % MCV (78-100) fl MCH (26-32) pg MCHC (32-36) g/dl RDW (11.5-14.0) % Plt Count (150-450) K/mm3 MPV (7.5-11.0) fl Gran % (36.0-66.0) % Eos # (Auto) (0-0.5) Absolute Lymphs (auto) (1.0-4.6) Absolute Monos (auto) (0.0-1.3) Lymphocytes % (24.0-44.0) % Monocytes % (0.0-12.0) % Eosinophils % (0.00-5.0) % Basophils % (0.0-0.4) % Absolute Granulocytes (1.4-6.9) Basophils # (0-0.4) Sodium (137-145) mmol/L Potassium (3.5-5.1) mmol/L Chloride (98-107) mmol/L Carbon Dioxide (22-30) mmol/L Anion Gap (5-15) MEQ/L BUN (7-17) mg/dL Creatinine (0.52-1.04) mg/dL Estimated GFR ML/MIN Glucose (74-106) mg/dL Calcium (8.4-10.2) mg/dL Total Bilirubin (0.2-1.3) mg/dL AST (14-36) U/L ALT (0-35) U/L Alkaline Phosphatase (38-126) U/L Serum Total Protein (6.3-8.2) g/dL Albumin (3.5-5.0) g/dL Urine Color AMY (YELLOW) Urine Appearance CLOUDY (CLEAR) Urine pH 5.0 (5-6) Ur Specific [place] 1.023 (1.005-1.025) Urine Protein 30 (Negative) Urine Ketones NEGATIVE (NEGATIVE) Urine Blood NEGATIVE (0-5) Avinash/ul Urine Nitrite POSITIVE (NEGATIVE) Urine Bilirubin SMALL (NEGATIVE) Urine Urobilinogen 4 (0-1) mg/dL Ur Leukocyte Esterase SMALL (NEGATIVE) Urine WBC (Auto) 16-25 (0-5) /HPF Urine RBC (Auto) 0-2 (0-2) /HPF U Epithel Cells (Auto) RARE (FEW) /HPF Urine Bacteria (Auto) FEW (NEGATIVE) /HPF Urine Mucus (Auto) MANY (NEGATIVE) /HPF Urine Culture Reflexed YES (NO) Urine Glucose NEGATIVE (NEGATIVE) mg/dL Urine HCG, Qual NEGATIVE (Negative) Urine Opiates Level (NEGATIVE) Ur Methadone (NEGATIVE) Urine Barbiturates (NEGATIVE) Ur Phencyclidine (PCP) (NEGATIVE) Urine Amphetamine (NEGATIVE) U Benzodiazepine Level (NEGATIVE) Urine Cocaine (NEGATIVE) Urine Marijuana (THC) (NEGATIVE) - Progress Progress: unchanged Counseled pt/family regarding: lab results, diagnosis, need for follow-up - Progress Progress Note: 05/12/21 18:48 Patient is sleeping well in the ER. Patient is noncooperative. Does not want to be examined. After prolonged discussion she was agreeable with getting blood work and fluids. Her urine drug screen is positive for multiple substances although she denies use of any. Work-up otherwise grossly unremarkable except for UTI and given Rocephin in here and will continue with Keflex to go home. Discussed signs symptoms of worsening needing return to ER which he seems understanding. It was difficult encounter. 05/12/21 18:50 (RAFIQ DANIEL) - Departure Departure Disposition: Home Critical Care Time: No - Departure Clinical Impression: Polysubstance abuse, Acute UTI, Generalized weakness Chronic back pain Qualifiers: Back pain location: back pain in other location Qualified Code(s): M54.9 - Dorsalgia, unspecified Condition: Stable Referrals: ALYSSA VALDOVINOS [Primary Care Provider] - Instructions: Urinary Tract Infections in Adults, Polysubstance Abuse (DC) Additional Instructions: Drink plenty of fluids. Take medications only as recommended and prescribed to you. Follow-up with primary care for reevaluation. Return to ER for worsening back pain or if develop any other symptoms like abdominal pain, chest pain palpitations shortness of breath, intractable vomiting diarrhea/fever chills etc. Do not use drugs. Prescriptions: Cephalexin Mh 500 mg [Keflex 500 mg] 500 mg PO TID #21 cap
[2021-05-12] MEDS ORDERED: ROCEPHIN 2 Gm-D5w 50ML BAG** 2 G/50 ML IVPB IV STA (16:55)
[2021-05-12] MEDS ORDERED: ROCEPHIN 2 Gm-D5w 50ML BAG** 2 G/50 ML IVPB IV ONE (17:10)
[2021-05-12 18:13] LABS: Absolute Neutrophil Ct (ANC) 4.52 (1.4-6.9); BASOPHIL % 0.3 % (0.0-0.4); Basophil (Absolute #) 0.03 (0-0.4); Eosinophil % 3.8 % (0.00-5.0); Eosinophil (Absolute #) 0.33 (0-0.5); Hemoglobin 14.9 gm/dl (12.0-16.0); Lymphocyte (Absolute #) 3.51 (1.0-4.6); Lymphocytes % 40.3 % (24.0-44.0); Mean Cell Volume 89.1 fl (78-100); Mean Corpuscular Hemoglobin 29.5 pg (26-32); Mean Corpuscular Hgb Concent. 33.1 g/dl (32-36); Mean Platelet Volume 10.1 fl (7.5-11.0); Monocyte (Absolute #) 0.33 (0.0-1.3); Monocytes % 3.8 % (0.0-12.0); Neutrophil % 51.8 % (36.0-66.0); Platelet Count 188 K/mm3 (150-450); Red Blood Count 5.05 M/mm3 (4.1-5.4); Red Cell Distribution Width 12.2 % (11.5-14.0); White Blood Count 8.7 K/mm3 (4.0-10.5)
[2021-05-12 18:26] LABS: ALBUMIN 3.9 g/dL (3.5-5.0); ALKALINE PHOSPHATASE 56 U/L (38-126); ANION GAP 15.8 MEQ/L (5-15); BLOOD UREA NITROGEN 17 mg/dL (7-17); CHLORIDE 110 mmol/L (98-107); Calcium 8.4 mg/dL (8.4-10.2); Carbon Dioxide 20 mmol/L (22-30); Creatinine 1 0.71 mg/dL (0.52-1.04); EST GLOMERULAR FILTRATION RATE > 60.0 ML/MIN; Glucose 83 mg/dL (74-106); Potassium 3.7 mmol/L (3.5-5.1); SGOT/AST 15 U/L (14-36); SGPT/ALT 10 U/L (0-35); SODIUM 142 mmol/L (137-145); Total Protein 6.9 g/dL (6.3-8.2)
[2021-05-12 19:07] VITALS: BP 112/75; PULSE 89; O2SAT 97
== END 2021-05-12 19:13 | disposition home or self-care (01) ==
LOC: ED 13:44
DX: N39.0 Urinary tract infection, site not specified (principal); F19.10 Other psychoactive substance abuse, uncomplicated; R53.1 Weakness; M54.9 Dorsalgia, unspecified; R53.83 Other fatigue
CPT/HCPCS: 36415; 80053; 80307; 81001; 84703; 85025; 87077; 87086; 87186; 96360; 96365; 99284; J0696

== ENCOUNTER 2021-05-14 13:42 | Emergency (ER) | payer OTHER ==
[2021-05-14] MEDS ORDERED: TORAdol 30 mg Injection IM ONE (14:03)
[2021-05-14] MEDS ORDERED: TORAdol 30 mg Injection ONE ×2 (14:07)
[2021-05-14 14:13] VITALS: PULSE 100; O2SAT 100
--- NOTE | 2021-05-14 14:22 | ERPHSYRPT ---
- History of Present Illness Source: patient Exam Limitations: other (Por historian) Patient Subjective Stated Complaint: "same thing as I have been here before twice. I need a referral to the pain clinic so I need to talk to the doctor." Triage Nursing Assessment: pt to ED requesting referral to the pain clinic. pt states she is having pain like she has as prior two visits. pt was dx with UTI last visit and given abx. pt just states she would like to speak to a doctor about going to the pain clinic. Physician History: 35 yo wf who is a poor historian presents w chronic back pain. Pt can not tell me the duration or previous treatment. She also asks for referral to a pain clinic. Pain does not radiate and is 9/10 on scale. Pt was recently treated for a UTI but denies dysuria/hematuria/fever/N/V/D. Drug screen 05/12 was +for Methadone/THC/amphetamine. Timing/Duration: other (Chronic) Method of Injury: unknown Quality: sharp Back Pain Location: lumbar spine Severity of Pain-Max: severe Severity of Pain-Current: severe Modifying Factors: Improves With: movement Associated Symptoms: lower back pain, No fever, No chills, No sweating, No urinary incontinence, No loss of bowel control, No constipation, No nausea, No vomiting, No problems urinating, No light-headedness, No dizziness, No numbness in legs/feet, No weakness, No sensory/motor loss, No tingling in legs/feet, No muscle spasms Previous symptoms: same symptoms as today Allergies/Adverse Reactions: No Known Drug Allergies Allergy (Verified 05/14/21 14:13) Hx Tetanus, Diphtheria Vaccination/Date Given: No Hx Influenza Vaccination/Date Given: No Hx Pneumococcal Vaccination/Date Given: No Immunizations Up to Date: No Travel Risk - International Travel Have you traveled outside of the country in past 3 weeks: No - Coronavirus Screening Are you exhibiting any of the following symptoms?: No Close contact with a COVID-19 positive Pt in past 14-21 Days: No - Vaccine Status Have you recieved a Covid-19 vaccination: No - Review of Systems Constitutional: No Symptoms Eyes: No Symptoms Ears, Nose, & Throat: No Symptoms Respiratory: No Symptoms Cardiac: No Symptoms Abdominal/Gastrointestinal: No Symptoms Genitourinary Symptoms: No Symptoms Musculoskeletal: No Symptoms Skin: No Symptoms Neurological: No Symptoms Psychological: No Symptoms Endocrine: No Symptoms Hematologic/Lymphatic: No Symptoms Immunological/Allergic: No Symptoms - Past Medical History Pertinent Past Medical History: Yes Neurological History: No Pertinent History ENT History: No Pertinent History Cardiac History: No Pertinent History Respiratory History: No Pertinent History Endocrine Medical History: No Pertinent History Musculoskeletal History: No Pertinent History GI Medical History: No Pertinent History, Hepatitis History: No Pertinent History Psycho-Social History: Attention Deficit Disorder, Other Female Reproductive Disorders: Other Other Medical History: pt has history of multiple fractures in her life, Hep C, bipolar - Past Surgical History Past Surgical History: Yes Neuro Surgical History: No Pertinent History Cardiac: No Pertinent History Respiratory: No Pertinent History Gastrointestinal: No Pertinent History Genitourinary: No Pertinent History Musculoskeletal: Orthopedic Surgery Female Surgical History: Tubal Ligation Other Surgical History: right knee - Social History Smoking Status: Former smoker How long have you smoked: 10 years Exposure to second hand smoke: Yes Alcohol Use: None Drug Use: none Patient Lives Alone: Yes Significant Family History: no pertinent family hx - Female History Hx Now: No - Nursing Vital Signs Nursing Vital Signs: Initial Vital Signs Temperature 98.2 F 05/14/21 13:58 Pulse Rate 100 H 05/14/21 13:58 Respiratory Rate 18 05/14/21 13:58 Blood Pressure 99/74 05/14/21 13:58 O2 Sat by Pulse Oximetry 100 05/14/21 13:58 Pain Scale Pain Intensity 10 Borderline blood pressure - Physical Exam General Appearance: no apparent distress Eye Exam: PERRL/EOMI, eyes nml inspection Ears, Nose, Throat Exam: normal ENT inspection, TMs normal, pharynx normal, moist mucous membranes Neck Exam: normal inspection, non-tender, supple, full range of motion, No meningismus, No mass, No Brudzinski, No Kernig's Respiratory Exam: normal breath sounds, lungs clear, airway intact, No respiratory distress Cardiovascular Exam: regular rate/rhythm, normal heart sounds, normal peripheral pulses, No murmur Gastrointestinal Exam: soft, normal bowel sounds, No tenderness Back Exam: vertebral tenderness, No CVA tenderness Extremity Exam: normal inspection, normal range of motion Neurologic Exam: alert, oriented x 3, cooperative, market research consultant 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 tested, normal mood/affect, nml cerebellar function, nml station & gait, sensation nml Skin Exam: normal color Lymphatic Exam: No adenopathy SpO2 Interpretation: normal SpO2: 100 O2 Delivery: Room Air Ordered Tests: Active Orders 24 hr Category Date Time Status CULTURE,URINE Stat Lab 05/14/21 14:13 Received HCG,QUALITATIVE URINE Stat Lab 05/14/21 14:13 Completed UA W/RFX UR CULTURE Stat Lab 05/14/21 14:13 Completed Urine Triage Profile Stat Lab 05/14/21 14:13 Completed Medication Summary Discontinued Medications Generic Name Dose Route Start Last Admin Trade Name Darci PRN Reason Stop Dose Admin Ketorolac Tromethamine 60 mg 05/14/21 14:03 05/14/21 14:15 Toradol 30 Mg Injection IM 05/14/21 14:04 60 mg STAT ONE Administration Ketorolac Tromethamine Confirm 05/14/21 14:07 Toradol 30 Mg Injection Administered 05/14/21 14:08 Dose 30 mg .ROUTE .STK-MED ONE Ketorolac Tromethamine Confirm 05/14/21 14:07 Toradol 30 Mg Injection Administered 05/14/21 14:08 Dose 30 mg .ROUTE .STK-MED ONE Lab/Rad Data: Laboratory Results 05/14/21 05/14/21 05/14/21 Range/Units 14:13 14:13 14:13 Urine Color AMY (YELLOW) Urine Appearance CLOUDY (CLEAR) Urine pH 5.0 (5-6) Ur Specific [place] 1.027 (1.005-1.025) Urine Protein 30 (Negative) Urine Ketones TRACE (NEGATIVE) Urine Blood NEGATIVE (0-5) Avinash/ul Urine Nitrite NEGATIVE (NEGATIVE) Urine Bilirubin SMALL (NEGATIVE) Urine Urobilinogen 2 (0-1) mg/dL Ur Leukocyte Esterase NEGATIVE (NEGATIVE) Urine WBC (Auto) 11-15 (0-5) /HPF Urine RBC (Auto) 26-50 (0-2) /HPF U Hyaline Cast (Auto) 6-10 (0-2) /LPF U Epithel Cells (Auto) RARE (FEW) /HPF Urine Bacteria (Auto) RARE (NEGATIVE) /HPF Urine Mucus (Auto) SLIGHT (NEGATIVE) /HPF Urine Culture Reflexed YES (NO) Urine Glucose NEGATIVE (NEGATIVE) mg/dL Urine HCG, Qual NEGATIVE (Negative) Urine Opiates Level NEGATIVE (NEGATIVE) Ur Methadone POSITIVE (NEGATIVE) Urine Barbiturates NEGATIVE (NEGATIVE) Ur Phencyclidine (PCP) NEGATIVE (NEGATIVE) Urine Amphetamine POSITIVE (NEGATIVE) U Benzodiazepine Level NEGATIVE (NEGATIVE) Urine Cocaine NEGATIVE (NEGATIVE) Urine Marijuana (THC) POSITIVE (NEGATIVE) - Progress Progress Note: 05/14/21 14:38 60mg IM Toradol Pt not taking previously prescribed antibiotic Counseled pt/family regarding: diagnosis, need for follow-up - Departure Departure Disposition: Home Clinical Impression: UTI (urinary tract infection) Condition: Stable Critical Care Time: No Referrals: ALYSSA MENDES [Primary Care Provider] - Instructions: Urinary Tract Infection, Adult (DC) Additional Instructions: Contact Dr. Mendes for referral to pain clinic Start Macrobid twice a day for 5 days Prescriptions: Nitrofurantoin Monohyd/M-Cryst [Macrobid 100 mg Capsule] 100 mg PO BID #10
[2021-05-14 14:33] LABS: Appearance CLOUDY (CLEAR); Bacteria RARE /HPF (NEGATIVE); Bilirubin SMALL (NEGATIVE); Blood NEGATIVE Ery/ul (0-5); Epithelial Cells RARE /HPF (FEW); Glucose NEGATIVE (NEGATIVE); Ketones TRACE (NEGATIVE); Leukocyte Esterase NEGATIVE (NEGATIVE); Mucus SLIGHT /HPF (NEGATIVE); Nitrite NEGATIVE (NEGATIVE); Protein,Urine Dip 30 (Negative); RBC 26-50 /HPF (0-2); Specific Gravity 1.027 (1.005-1.025); Urobilinogen 2 mg/dL (0-1)
[2021-05-14 14:46] LABS: Benzodiazepine,Urine NEGATIVE (NEGATIVE); Cocaine,Urine NEGATIVE (NEGATIVE); Methadone,Urine POSITIVE (NEGATIVE); Opiate,Urine NEGATIVE (NEGATIVE); PCP,Urine NEGATIVE (NEGATIVE); THC,Urine POSITIVE (NEGATIVE)
[2021-05-14 15:11] VITALS: BP 101/75
[2021-05-14 16:33] LABS: Amphetamine,Urine POSITIVE (NEGATIVE); Barbiturate,Urine NEGATIVE (NEGATIVE)
== END 2021-05-14 15:09 | disposition home or self-care (01) ==
LOC: ED 13:42
DX: N39.0 Urinary tract infection, site not specified (principal)
CPT/HCPCS: 80307; 81001; 84703; 87086; 96372; 99284; J1885

== ENCOUNTER 2021-07-27 15:27 | Emergency (ER) | payer OTHER ==
[2021-07-27 15:31] VITALS: BP 135/87; PULSE 89; O2SAT 97
[2021-07-27] MEDS ORDERED: Sodium Chloride 0.9% 1000 ML 1,000 ML ONE (15:57)
[2021-07-27] MEDS ORDERED: Sodium Chloride 0.9% 1000 ML 1,000 ML IV STA (16:00)
--- NOTE | 2021-07-27 16:09 | ERPHSYRPT ---
- History of Present Illness Time Seen by Provider: 07/27/21 16:06 Source: patient Exam Limitations: no limitations Patient Subjective Stated Complaint: PT WAS SEEN INSIDE [employer] AND THEN WAS FOUND LATER BY STAFF ON GROUND UNRESPONSIVE, WAS GIVEN NARCAN BY PO;LICE AND EMS, Triage Nursing Assessment: PT ARRIVED PER AMBULANCE,EYES CLOSED, OPENS EYES TO TOUCH, SHE SLAPS AT STAFF WHEN TRYING TO GET V/S. RESP EASY, FACE MASK APPLIED, SKIN COLD TO TOUCH, DRY, PINK, WARM BLANKETS APPLIED, PT HAS TRACK BIANCHI TO ARMS Physician History: Patient is 36-year-old female with long history of polysubstance abuse was eating at [employer] suddenly found unresponsive so police was there and they gave her Narcan which made her alert but then she become drowsy so ambulance brought her into the emergency room. In the emergency room she was alert awake arousable but agitated. No further history available due to patient condition. Timing/Duration: today Associated Symptoms: denies symptoms Allergies/Adverse Reactions: No Known Drug Allergies Allergy (Verified 07/27/21 15:38) Home Medications: Unobtainable 07/27/21 [History] Hx Tetanus, Diphtheria Vaccination/Date Given: No Hx Influenza Vaccination/Date Given: No Hx Pneumococcal Vaccination/Date Given: No Immunizations Up to Date: Yes Travel Risk - International Travel Have you traveled outside of the country in past 3 weeks: No - Coronavirus Screening Are you exhibiting any of the following symptoms?: No - Vaccine Status Have you recieved a Covid-19 vaccination: No - Review of Systems Constitutional: Lethargy Eyes: No Symptoms Ears, Nose, & Throat: No Symptoms Respiratory: No Symptoms Cardiac: No Symptoms Abdominal/Gastrointestinal: No Symptoms Genitourinary Symptoms: No Symptoms Musculoskeletal: No Symptoms Skin: No Symptoms Neurological: Irritability, Lethargy Psychological: Drug Abuse Endocrine: No Symptoms Hematologic/Lymphatic: No Symptoms Immunological/Allergic: No Symptoms All Other Systems: Unable due to condition - Past Medical History Pertinent Past Medical History: Yes Neurological History: No Pertinent History ENT History: No Pertinent History Cardiac History: No Pertinent History Respiratory History: No Pertinent History Endocrine Medical History: No Pertinent History Musculoskeletal History: No Pertinent History GI Medical History: No Pertinent History, Hepatitis History: No Pertinent History Psycho-Social History: Attention Deficit Disorder, Other Female Reproductive Disorders: Other Other Medical History: pt has history of multiple fractures in her life, Hep C, bipolar - Past Surgical History Past Surgical History: Yes Neuro Surgical History: No Pertinent History Cardiac: No Pertinent History Respiratory: No Pertinent History Gastrointestinal: No Pertinent History Genitourinary: No Pertinent History Musculoskeletal: Orthopedic Surgery Female Surgical History: Tubal Ligation Other Surgical History: right knee - Social History Smoking Status: Former smoker How long have you smoked: 10 years Exposure to second hand smoke: Yes Alcohol Use: None Drug Use: none Patient Lives Alone: Yes Significant Family History: no pertinent family hx - Female History Hx Last Menstrual Period: ? Hx Now: No (UNKNOWN) - Nursing Vital Signs Nursing Vital Signs: Initial Vital Signs Temperature 99.3 F 07/27/21 15:28 Pulse Rate 89 07/27/21 15:28 Respiratory Rate 12 07/27/21 15:28 Blood Pressure 135/87 07/27/21 15:28 O2 Sat by Pulse Oximetry 97 07/27/21 15:28 Pain Scale Pain Intensity 0 - Physical Exam General Appearance: mild distress Eye Exam: PERRL/EOMI, eyes nml inspection Ears, Nose, Throat Exam: normal ENT inspection, TMs normal, pharynx normal, moist mucous membranes Neck Exam: normal inspection, non-tender, supple, full range of motion Respiratory Exam: normal breath sounds, lungs clear, No respiratory distress Cardiovascular Exam: regular rate/rhythm, normal heart sounds, normal peripheral pulses Gastrointestinal/Abdomen Exam: soft, normal bowel sounds, No tenderness, No mass Back Exam: normal inspection, normal range of motion, No CVA tenderness, No vertebral tenderness Extremity Exam: normal inspection, normal range of motion, pelvis stable Neurologic Exam: alert, sensation nml, agitation, uncooperative, intoxicated appearance, No motor deficits Skin Exam: normal color, warm, dry, No rash Lymphatic Exam: No adenopathy SpO2: 97 - Course Nursing assessment & vital signs reviewed: Yes Ordered Tests: Active Orders 24 hr Category Date Time Status ACETAMINOPHEN Stat Lab 07/27/21 15:47 Ordered CBC W DIFF Stat Lab 07/27/21 15:47 Ordered CMP Stat Lab 07/27/21 15:47 Ordered CULTURE,URINE Stat Lab 07/27/21 16:00 Received ETHYL ALCOHOL Stat Lab 07/27/21 15:47 Ordered HCG,QUALITATIVE URINE Stat Lab 07/27/21 16:00 Completed SALICYLATE Stat Lab 07/27/21 15:47 Ordered UA W/RFX UR CULTURE Stat Lab 07/27/21 15:52 Completed Urine Triage Profile Stat Lab 07/27/21 15:52 Completed Medication Summary Discontinued Medications Generic Name Dose Route Start Last Admin Trade Name Darci PRN Reason Stop Dose Admin Ceftriaxone Sodium 1,000 mg 07/27/21 16:56 07/27/21 17:07 Ceftriaxone Sodium 1000 Mg Inj Vial IM 07/27/21 16:57 1,000 mg STAT ONE Administration Ceftriaxone Sodium Confirm 07/27/21 17:02 Ceftriaxone Sodium 1000 Mg Inj Vial Administered 07/27/21 17:03 Dose 1,000 mg .ROUTE .STK-MED ONE Sodium Chloride Confirm 07/27/21 15:57 Sodium Chloride 0.9% 1000 Ml Administered 07/27/21 15:58 Dose 1,000 mls @ ud .ROUTE .STK-MED ONE Sodium Chloride 1,000 mls @ 999 mls/hr 07/27/21 16:00 07/27/21 17:08 Sodium Chloride 0.9% 1000 Ml IV 07/27/21 17:00 Infused .Q1H1M STA Infusion Lab/Rad Data: Laboratory Results 07/27/21 07/27/21 07/27/21 Range/Units 16:00 15:52 15:52 Urine Color AMY (YELLOW) Urine Appearance CLOUDY (CLEAR) Urine pH 6.0 (5-6) Ur Specific [place] 1.023 (1.005-1.025) Urine Protein NEGATIVE (Negative) Urine Ketones NEGATIVE (NEGATIVE) Urine Blood NEGATIVE (0-5) Avinash/ul Urine Nitrite NEGATIVE (NEGATIVE) Urine Bilirubin NEGATIVE (NEGATIVE) Urine Urobilinogen 2 (0-1) mg/dL Ur Leukocyte Esterase TRACE (NEGATIVE) Urine WBC (Auto) 26-50 (0-5) /HPF Urine RBC (Auto) 0-2 (0-2) /HPF U Epithel Cells (Auto) RARE (FEW) /HPF Urine Bacteria (Auto) MODERATE (NEGATIVE) /HPF Urine Mucus (Auto) SLIGHT (NEGATIVE) /HPF Urine Culture Reflexed ORDERED SEPARATELY (NO) Urine Glucose 50 (NEGATIVE) mg/dL Urine HCG, Qual NEGATIVE (Negative) Urine Opiates Level NEGATIVE (NEGATIVE) Ur Methadone NEGATIVE (NEGATIVE) Urine Barbiturates NEGATIVE (NEGATIVE) Ur Phencyclidine (PCP) NEGATIVE (NEGATIVE) Urine Amphetamine POSITIVE (NEGATIVE) U Benzodiazepine Level NEGATIVE (NEGATIVE) Urine Cocaine NEGATIVE (NEGATIVE) Urine Marijuana (THC) POSITIVE (NEGATIVE) - Progress Progress: improved Counseled pt/family regarding: drug and/or alcohol abuse, lab results, diagnosis, need for follow-up, smoking cessation - Departure Departure Disposition: Long-Term/[facility] Clinical Impression: Methamphetamine use Altered mental status Qualifiers: Altered mental status type: disorientation Qualified Code(s): R41.0 - Disorientation, unspecified Condition: Stable Critical Care Time: No Referrals: ALYSSA VALDOVINOS [Primary Care Provider] - Follow up/PCP as directed Instructions: Altered Mental Status (DC), Drug Abuse and Drug Addiction (DC), Methamphetamine, Meth Mouth, Polysubstance Abuse (DC) Additional Instructions: Discharge/Care Plan DAMIÁN ACOSTA was seen on 07/27/21 in the Emergency Room. The patient was counseled regarding Diagnosis,Lab results, Imaging studies, need for follow up and when to return to the Emergency Room. Prescriptions given: Discharge Note I have spoken with the patient and/or caregivers. I have explained the patient's condition, diagnosis and treatment plan based on the information available to me at this time. I have answered the patient's and/or caregiver's questions and addressed any concerns. The patient and/or caregivers have as good understanding of the patient's diagnosis, condition and treatment plan as can be expected at this point. The vital signs have been stable. The patient's condition is stable and appropriate for discharge from the emergency department. The patient will pursue further outpatient evaluation with the primary care physician or other designated or consulting physician as outlined in the discharge instructions. The patient and/or caregivers are agreeable to this plan of care and follow-up instructions have been explained in detail. The patient and/or caregivers have received these instruction. The patient/and or caregivers are aware that any significant change in condition or worsening of symptoms should prompt an immediate return to this or the closest emergency department or call 911. DAMIÁN ACOSTA was seen on 07/27/21 n the Emergency Room. At that time you were treated for an emergent condition, during your visit Laboratory, Radiology and/or other procedures may have been ordered. It is very important that you follow-up with your Primary Care Physician ALYSSA VALDOVINOS within the next 24-48 hours to review your Emergency Room visit and the final results of testing that was ordered. Some test results such as Urine Cultures, Blood Cultures, and other cultures if ordered will not be finalized for 24-48 hours. If you do not have a Primary Care Provider please call the medical records department at [phone] ext [phone] to obtain a copy of your results or you may sign into our patient portal to obtain these results by visiting us @ [email or web address] and completing the following steps: 1. Click on the Patient Portal link 2. Click the Patient Self Enrollment Link to complete the enrollment form and entering your 3. Once the enrollment form is completed you will receive an email with a temporary ID and password at the email address you provided. 4. Next choose a user name and password. Your user name must be at least 4 characters long and your password must be at least 4 characters long. 5. Choose a security question from the list and provide your answer to the question. If you already have signed into the Health Portal you may access your Health Care Information 08/03 by the following steps: 1. Login to our website @ [email or web address] 2. Enter your original user name and password. FAQS The [facility] Health Portal is an online tool that contains your Lab Results, Radiology Reports, Visit History, Discharge Instructions and Health Summary Lab and Radiology Results will not be available for 72 hours on the portal. The Portal is a secure site, passwords are encryted and URLs are re-written so they cannot be copied and pasted. You and authorized family members are the only ones who can access your Portal. Also there is a timeout feature that protects your information if you leave the Portal page open. If you have technical difficulty please use the Contact Us link on the page this will allow you to submit any questions you have regarding the Portal or you may contact the Medical Record Department at [phone] ext [phone]. Forms: Work/School Release Form
[2021-07-27 16:45] LABS: Appearance CLOUDY (CLEAR); Bilirubin NEGATIVE (NEGATIVE); Blood NEGATIVE Ery/ul (0-5); Glucose 50 mg/dL (NEGATIVE); Ketones NEGATIVE (NEGATIVE); Leukocyte Esterase TRACE (NEGATIVE); Nitrite NEGATIVE (NEGATIVE); Protein,Urine Dip NEGATIVE (Negative); Specific Gravity 1.023 (1.005-1.025); Urobilinogen 2 mg/dL (0-1)
[2021-07-27 16:46] LABS: Bacteria MODERATE /HPF (NEGATIVE); Epithelial Cells RARE /HPF (FEW); Mucus SLIGHT /HPF (NEGATIVE); RBC 0-2 /HPF (0-2); WBC 26-50 /HPF (0-5)
[2021-07-27 16:48] LABS: Amphetamine,Urine POSITIVE (NEGATIVE); Barbiturate,Urine NEGATIVE (NEGATIVE); Benzodiazepine,Urine NEGATIVE (NEGATIVE); Cocaine,Urine NEGATIVE (NEGATIVE); Methadone,Urine NEGATIVE (NEGATIVE); Opiate,Urine NEGATIVE (NEGATIVE); PCP,Urine NEGATIVE (NEGATIVE); THC,Urine POSITIVE (NEGATIVE)
[2021-07-27] MEDS ORDERED: Rocephin 1000 MG INJ IM ONE (16:56)
[2021-07-27] MEDS ORDERED: XYLOCAINE 1% HCL 20 ML MDV IJ ONE (17:00)
[2021-07-27] MEDS ORDERED: Rocephin 1000 MG INJ ONE (17:02)
== END 2021-07-27 17:35 ==
LOC: ED 15:27
DX: R41.0 Disorientation, unspecified (principal); F15.929 Other stimulant use, unspecified with intoxication, unspecified; R53.83 Other fatigue
CPT/HCPCS: 80307; 81001; 84703; 87086; 96360; 96372; 99284; P9612; 87077; 87186; J0696

== ENCOUNTER 2022-09-21 05:39 | Emergency (ER) | payer OTHER ==
--- NOTE | 2022-09-21 06:06 | ERPHSYRPT ---
- History of Present Illness Source: patient, EMS Exam Limitations: clinical condition Patient Subjective Stated Complaint: per law enforcement, pt was being booked into half-way for breaking into someones vehicle and sleeping. while in booking,pt took something out of her pocket and law enfocement believes she may have ingested it. Triage Nursing Assessment: pt walks in with law enforcement, steady gait noted. respirations nonlabored. skin warm and dry. respirations nonlabored. pt tearful at times. labile mood. pt talkative and paranoid. pupils equal and reactive. pt moves all extremities without diff. Timing/Duration: today Severity of Symptoms-Max: mild Severity of Symptoms-Current: mild Context related to: legal problems Associated Symptoms: ingestion, other (She is intoxicated) Previous symptoms: same symptoms as today Hx Tetanus, Diphtheria Vaccination/Date Given: No Hx Influenza Vaccination/Date Given: No Hx Pneumococcal Vaccination/Date Given: No Immunizations Up to Date: No - History of Present Illness Time Seen by Provider: 09/21/22 05:45 Physician History: This is a 37-year-old white female patient who was brought to the emergency d [facility] from half-way by law enforcement secondary to her ingesting some substance while at the half-way. Patient was placed into half-way earlier in the morning because she was breaking into vehicles and sleeping in the vehicles. Patient arrives able to answer questions but is intoxicated. She is able to answer questions she is alert and oriented. Patient has a history of ADH, hepatitis C and bipolar disorder. She is a daily smoker of cigarettes. She denies headache, she denies chest pain, she denies shortness of breath, she denies abdominal pain. Patient is not suicidal or homicidal (MEENU VERDUGO) Allergies/Adverse Reactions: No Known Drug Allergies Allergy (Verified 09/21/22 05:56) Home Medications: Unobtainable 07/27/21 [History] Travel Risk - International Travel Have you traveled outside of the country in past 3 weeks: No - Coronavirus Screening Are you exhibiting any of the following symptoms?: No Close contact with a COVID-19 positive Pt in past 14-21 Days: No - Vaccine Status Have you recieved a Covid-19 vaccination: No - Past Medical History Pertinent Past Medical History: Yes Neurological History: No Pertinent History ENT History: No Pertinent History Cardiac History: No Pertinent History Respiratory History: No Pertinent History Endocrine Medical History: No Pertinent History Musculoskeletal History: No Pertinent History GI Medical History: No Pertinent History, Hepatitis History: No Pertinent History Psycho-Social History: Attention Deficit Disorder, Other Female Reproductive Disorders: Other Other Medical History: pt has history of multiple fractures in her life, Hep C, bipolar - Past Surgical History Past Surgical History: Yes Neuro Surgical History: No Pertinent History Cardiac: No Pertinent History Respiratory: No Pertinent History Gastrointestinal: No Pertinent History Genitourinary: No Pertinent History Musculoskeletal: Orthopedic Surgery Female Surgical History: Tubal Ligation Other Surgical History: right knee - Social History Smoking Status: Current every day smoker How long have you smoked: 10 years Exposure to second hand smoke: Yes Alcohol Use: None Drug Use: none Patient Lives Alone: Yes Significant Family History: no pertinent family hx - Female History Hx Last Menstrual Period: unsure Hx Now: No - Review of Systems Constitutional: No Symptoms Eyes: No Symptoms Ears, Nose, & Throat: No Symptoms Respiratory: No Symptoms Cardiac: No Symptoms Abdominal/Gastrointestinal: No Symptoms Genitourinary Symptoms: No Symptoms Musculoskeletal: No Symptoms Skin: No Symptoms Psychological: Other (She is intoxicated with unknown substance.), No Suicidal Ideations, No Homicidal Ideations, No Hallucinations Endocrine: No Symptoms Hematologic/Lymphatic: No Symptoms Immunological/Allergic: No Symptoms All Other Systems: Reviewed and Negative - Physical Exam General Appearance: no apparent distress, alert, anxiety Eyes, Ears, Nose, Throat Exam: normal ENT inspection, moist mucous membranes Neck Exam: normal inspection, non-tender, supple, full range of motion Respiratory Exam: normal breath sounds, lungs clear, airway intact, No chest tenderness, No respiratory distress Cardiovascular Exam: regular rate/rhythm, normal heart sounds, normal peripheral pulses Gastrointestinal/Abdominal Exam: soft, normal bowel sounds, No tenderness Extremities Exam: normal inspection, normal range of motion, No evidence of injury Current Suicidality: denies suicide plan Neurological Exam: alert, [employer] saw[employer] 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 tested, oriented x 3, anxious, depressed affect Behavior/Eye Contact/Speech: alert & uncooperative (Patient refusing blood draw. She attempted to provide us with urine that was obviously not urine. However, urine was found in the trash can), intoxicated appearance Skin Exam: normal color, warm, dry SpO2 Interpretation: normal SpO2: 99 O2 Delivery: Room Air - Nursing Vital Signs Nursing Vital Signs: Initial Vital Signs Temperature 98.1 F 09/21/22 05:44 Pulse Rate 79 09/21/22 05:44 Respiratory Rate 16 09/21/22 05:44 Blood Pressure 125/65 09/21/22 05:44 O2 Sat by Pulse Oximetry 99 09/21/22 05:44 Pain Scale Pain Intensity 0 - Course Nursing assessment & vital signs reviewed: Yes Ordered Tests: Active Orders 24 hr Category Date Time Status UA W/RFX UR CULTURE Stat Lab 09/21/22 06:14 Completed Urine Triage Profile Stat Lab 09/21/22 06:14 Results Lab/Rad Data: Laboratory Results 09/21/22 09/21/22 Range/Units 06:14 06:14 Urine Color Dark Yellow A (Yellow) Urine Appearance Clear (Clear) Urine pH 5.5 (4.6-8.0) Ur Specific [place] >=1.030 A (1.005-1.030) Urine Protein 30 (Negative) Urine Glucose (UA) Negative (Negative) mg/dL Urine Ketones 40 A (Negative) Urine Blood Negative (Negative) Urine Nitrite Negative (Negative) Urine Bilirubin Negative (Negative) Urine Urobilinogen 1.0 A (0.2) mg/dL Ur Leukocyte Esterase Negative (Negative) U Hyaline Cast (Auto) 3-5 A (0-2) /LPF Urine Microscopic RBC 3-5 (0-5) /HPF Urine Microscopic WBC 3-5 (0-5) /HPF Ur Epithelial Cells Moderate A (None Seen) /HPF Urine Bacteria Rare A (None Seen) /HPF Urine Culture Reflexed NO (NO) Urine Opiates Level NEGATIVE (NEGATIVE) Ur Methadone NEGATIVE (NEGATIVE) Urine Barbiturates NEGATIVE (NEGATIVE) Ur Phencyclidine (PCP) NEGATIVE (NEGATIVE) Urine Amphetamine Pending U Benzodiazepine Level NEGATIVE (NEGATIVE) Urine Cocaine NEGATIVE (NEGATIVE) Urine Marijuana (THC) POSITIVE (NEGATIVE) - Progress Progress: improved, re-examined Counseled pt/family regarding: lab results, diagnosis - Progress Progress Note: 09/21/22 07:11 pt care transferred to dr. marty mann at shift change. he will make final disposition (MEENU VERDUGO) Patient endorsed Dr. Mann at approximately 7 AM. Work-up reveals marijuana and amphetamine use. Patient resting comfortably. The need for evaluation is acute. Patient has no complaints per se. No significant comorbidities contributing the patient's symptoms. Toxicology screen ordered. Results as stated above. No significant medical management indicated. Patient was observed for approximately 3-1/2 hours. No consultations. Plan of care is to release patient to police custody. No significant social determinants of health impeding follow-up/plan of care. No prescriptions prescribed. Level of EM service was moderate. Complexity of problems addressed was moderate. Amount and complexity of data reviewed and analyzed was moderate. Low risk of complication or morbidity/mortality of patient management. No critical care time. Information was obtained by police as well as patient. Time spent for discharge is approximately 10 minutes. Discharge diagnosis is medical clearance for incarceration, marijuana use, amphetamine use. Portions of this note were created with voice recognition technology. There may be grammatical, spelling, punctuation or sound alike errors 09/21/22 0 (MARTY MANN) - Departure Departure Disposition: Home Critical Care Time: No - Departure Clinical Impression: Medical clearance for incarceration, Marijuana use, Amphetamine abuse Condition: Stable Referrals: ALYSSA VALDOVINOS [Primary Care Provider] - Follow up/PCP as directed Additional Instructions: Discharge/Care Plan DAMIÁN ACOSTA was seen on 09/21/22 in the Emergency Room. The patient was counseled regarding Diagnosis,Lab results, Imaging studies, need for follow up and when to return to the Emergency Room. Prescriptions given: Discharge Note I have spoken with the patient and/or caregivers. I have explained the patient's condition, diagnosis and treatment plan based on the information available to me at this time. I have answered the patient's and/or caregiver's questions and addressed any concerns. The patient and/or caregivers have as good understanding of the patient's diagnosis, condition and treatment plan as can be expected at this point. The vital signs have been stable. The patient's condition is stable and appropriate for discharge from the emergency department. The patient will pursue further outpatient evaluation with the primary care physician or other designated or consulting physician as outlined in the discharge instructions. The patient and/or caregivers are agreeable to this plan of care and follow-up instructions have been explained in detail. The patient and/or caregivers have received these instruction. The patient/and or caregivers are aware that any significant change in condition or worsening of symptoms should prompt an immediate return to this or the closest emergency department or call 911.
[2022-09-21 06:30] LABS: Appearance Clear (Clear); Bacteria Rare /HPF (None Seen); Bilirubin Negative (Negative); Blood Negative (Negative); Epithelial Cells Moderate /HPF (None Seen); Glucose, Urine Negative (Negative); Ketones 40 (Negative); Leukocyte Esterase Negative (Negative); Nitrite Negative (Negative); Ph 5.5 (4.6-8.0); Protein,Urine Dip 30 (Negative); Specific Gravity >=1.030 (1.005-1.030)
[2022-09-21 06:34] LABS: ADD URINE CULTURE? NO (NO)
[2022-09-21 06:50] LABS: Barbiturate,Urine NEGATIVE (NEGATIVE); Benzodiazepine,Urine NEGATIVE (NEGATIVE); Cocaine,Urine NEGATIVE (NEGATIVE); Methadone,Urine NEGATIVE (NEGATIVE); Opiate,Urine NEGATIVE (NEGATIVE); PCP,Urine NEGATIVE (NEGATIVE); THC,Urine POSITIVE (NEGATIVE)
[2022-09-21 08:54] VITALS: BP 119/77; PULSE 70; O2SAT 97
[2022-09-21 09:28] LABS: Amphetamine,Urine POSITIVE (NEGATIVE)
== END 2022-09-21 09:00 | disposition home or self-care (01) ==
LOC: ED 05:39
DX: Z02.89 Encounter for other administrative examinations (principal); F12.90 Cannabis use, unspecified, uncomplicated; F15.10 Other stimulant abuse, uncomplicated; Z28.310 Unvaccinated for COVID-19; Z72.0 Tobacco use
CPT/HCPCS: 80307; 81001; 99282

== ENCOUNTER 2022-12-06 14:25 | Emergency (ER) | payer OTHER ==
[2022-12-06 14:41] VITALS: BP 125/86; PULSE 62; O2SAT 98
[2022-12-06 14:54] LABS: Absolute Neutrophil Ct (ANC) 5.75 x10^3/uL (1.4-6.9); BASOPHIL % 0.3 % (0.0-0.4); Basophil (Absolute #) 0.03 x10^3/uL (0-0.4); Eosinophil (Absolute #) 0.09 x10^3/uL (0-0.5); Hematocrit 46.1 % (35-47); Hemoglobin 15.5 g/dL (12.0-16.0); IMMATURE GRAN # 0.02 x10^3u/L (0.00-0.03); IMMATURE GRAN % 0.2 % (0.00-0.4); Lymphocyte (Absolute #) 2.95 x10^3/uL (1.0-4.6); Lymphocytes % 31.7 % (24.0-44.0); Mean Cell Volume 87.8 fL (78-100); Mean Corpuscular Hemoglobin 29.5 pg (26-32); Mean Corpuscular Hgb Concent. 33.6 g/dL (32-36); Mean Platelet Volume 9.1 fL (7.5-11.0); Monocyte (Absolute #) 0.48 x10^3/uL (0.0-1.3); Monocytes % 5.2 % (0.0-12.0); Neutrophil % 61.6 % (36.0-66.0); Platelet Count 290 x10^3/uL (150-450); Red Blood Count 5.25 x10^6/uL (4.1-5.4); Red Cell Distribution Width 11.6 % (11.5-14.0); White Blood Count 9.3 x10^3/uL (4.0-10.5)
[2022-12-06 15:02] LABS: HCG URINE TEST NEGATIVE (NEGATIVE)
[2022-12-06 15:09] LABS: ACETAMINOPHEN < 10 ug/ml (10-30); ALBUMIN 4.3 g/dL (3.5-5.0); ALKALINE PHOSPHATASE 72 U/L (38-126); ANION GAP 12.8 MEQ/L (5-15); BLOOD UREA NITROGEN 10 mg/dL (7-17); CHLORIDE 103 mmol/L (98-107); Calcium 8.6 mg/dL (8.4-10.2); Carbon Dioxide 25 mmol/L (22-30); Creatinine 1 0.66 mg/dL (0.52-1.04); EST GLOMERULAR FILTRATION RATE > 60.0 ML/MIN; ETHYL ALCOHOL < 10 mg/dL (0-10); Glucose 106 mg/dL (74-106); Potassium 4.5 mmol/L (3.5-5.1); SALICYLATE < 1.0 mg/dL (2-20); SGOT/AST 20 U/L (14-36); SGPT/ALT 14 U/L (0-35); SODIUM 136 mmol/L (137-145); Total Protein 7.6 g/dL (6.3-8.2)
[2022-12-06 15:18] LABS: Amphetamine,Urine NEGATIVE (NEGATIVE); Barbiturate,Urine NEGATIVE (NEGATIVE); Benzodiazepine,Urine NEGATIVE (NEGATIVE); Cocaine,Urine NEGATIVE (NEGATIVE); Methadone,Urine NEGATIVE (NEGATIVE); Opiate,Urine NEGATIVE (NEGATIVE); PCP,Urine NEGATIVE (NEGATIVE); THC,Urine POSITIVE (NEGATIVE)
--- NOTE | 2022-12-06 15:35 | ERPHSYRPT ---
- History of Present Illness Time Seen by Provider: 12/06/22 14:44 Source: patient Exam Limitations: no limitations Patient Subjective Stated Complaint: Well check Triage Nursing Assessment: Patient ambulated back to ED and transferred self. Patient A+O X.3 Patient's skin pink, warm and dry. Patient brought to ED per police. Police state patient's grandmother called on her due to her doing drugs in her home. Police concerned with patient's behavior and states she is usually fighting them so they are concerned. Patient states she last used marijuana, bath salts and heroin just a few hours ago. Physician History: Patient initially brought in by police. Per them patient was using drugs at her grandma's house. Patient does admit to marijuana, bath salts, heroin use today. She is walking with a steady gait. Normal posture, alert and oriented x3. Patient denies any suicidal or homicidal ideation. Per the police, she has not under arrest. Patient was brought in for evaluation given her drug use today. Allergies/Adverse Reactions: No Known Drug Allergies Allergy (Verified 12/06/22 14:34) Home Medications: Buprenorphine HCl/Naloxone HCl [Suboxone 8 mg-2 mg Sl Film] 1 tab PO BID 12/06/22 [History] Hx Tetanus, Diphtheria Vaccination/Date Given: No Hx Influenza Vaccination/Date Given: No Hx Pneumococcal Vaccination/Date Given: No Immunizations Up to Date: Yes Travel Risk - International Travel Have you traveled outside of the country in past 3 weeks: No - Coronavirus Screening Are you exhibiting any of the following symptoms?: No Close contact with a COVID-19 positive Pt in past 14-21 Days: No - Vaccine Status Have you recieved a Covid-19 vaccination: No - Review of Systems Constitutional: No Fever, No Chills Eyes: No Symptoms Ears, Nose, & Throat: No Symptoms Respiratory: No Cough, No Dyspnea Cardiac: No Chest Pain, No Edema, No Syncope Abdominal/Gastrointestinal: No Abdominal Pain, No Nausea, No Vomiting, No Diarrhea Genitourinary Symptoms: No Dysuria Musculoskeletal: No Back Pain, No Neck Pain Skin: No Rash Neurological: No Dizziness, No Focal Weakness, No Sensory Changes Psychological: No Symptoms Endocrine: No Symptoms All Other Systems: Reviewed and Negative - Past Medical History Pertinent Past Medical History: Yes Neurological History: No Pertinent History ENT History: No Pertinent History Cardiac History: No Pertinent History Respiratory History: No Pertinent History Endocrine Medical History: No Pertinent History Musculoskeletal History: No Pertinent History GI Medical History: No Pertinent History, Hepatitis History: No Pertinent History Psycho-Social History: Attention Deficit Disorder, Other Female Reproductive Disorders: Other Other Medical History: pt has history of multiple fractures in her life, Hep C, bipolar - Past Surgical History Past Surgical History: Yes Neuro Surgical History: No Pertinent History Cardiac: No Pertinent History Respiratory: No Pertinent History Gastrointestinal: No Pertinent History Genitourinary: No Pertinent History Musculoskeletal: Orthopedic Surgery Female Surgical History: Tubal Ligation Other Surgical History: right knee - Social History Smoking Status: Current every day smoker How long have you smoked: 10 years Exposure to second hand smoke: Yes Alcohol Use: None Drug Use: none Patient Lives Alone: No Significant Family History: no pertinent family hx - Female History Hx Last Menstrual Period: unsure Hx Now: No - Nursing Vital Signs Nursing Vital Signs: Initial Vital Signs Temperature 96.8 F 12/06/22 14:35 Pulse Rate 62 12/06/22 14:35 Respiratory Rate 18 12/06/22 14:35 Blood Pressure 125/86 12/06/22 14:35 O2 Sat by Pulse Oximetry 98 12/06/22 14:35 Pain Scale Pain Intensity 0 - Physical Exam General Appearance: no apparent distress, alert Eye Exam: PERRL/EOMI, eyes nml inspection Ears, Nose, Throat Exam: normal ENT inspection, TMs normal, pharynx normal, moist mucous membranes Neck Exam: normal inspection, non-tender, supple, full range of motion Respiratory Exam: normal breath sounds, lungs clear, No respiratory distress Cardiovascular Exam: regular rate/rhythm, normal heart sounds, normal peripheral pulses Gastrointestinal/Abdomen Exam: soft, normal bowel sounds, No tenderness, No mass Back Exam: normal inspection, normal range of motion, No CVA tenderness, No vertebral tenderness Extremity Exam: normal inspection, normal range of motion, pelvis stable Neurologic Exam: alert, oriented x 3, cooperative, normal mood/affect, nml cerebellar function, nml station & gait, sensation nml, No motor deficits Skin Exam: normal color, warm, dry, No rash Lymphatic Exam: No adenopathy SpO2: 98 - Course Nursing assessment & vital signs reviewed: Yes Ordered Tests: Active Orders 24 hr Category Date Time Status ACETAMINOPHEN Stat Lab 12/06/22 14:54 Completed CBC W DIFF Stat Lab 12/06/22 14:54 Completed CMP Stat Lab 12/06/22 14:54 Completed ETHYL ALCOHOL Stat Lab 12/06/22 14:54 Completed HCG QUALITATIVE, URINE Stat Lab 12/06/22 14:42 Completed SALICYLATE Stat Lab 12/06/22 14:54 Completed UA W/RFX UR CULTURE Stat Lab 12/06/22 14:42 Received Urine Triage Profile Stat Lab 12/06/22 14:42 Completed Lab/Rad Data: Laboratory Result Diagrams 12/06/22 14:54 12/06/22 14:54 Laboratory Results 12/06/22 12/06/22 12/06/22 Range/Units 14:54 14:54 14:42 WBC 9.3 (4.0-10.5) x10^3/uL RBC 5.25 (4.1-5.4) x10^6/uL Hgb 15.5 (12.0-16.0) g/dL Hct 46.1 (35-47) % MCV 87.8 (78-100) fL MCH 29.5 (26-32) pg MCHC 33.6 (32-36) g/dL RDW 11.6 (11.5-14.0) % Plt Count 290 (150-450) x10^3/uL MPV 9.1 (7.5-11.0) fL Gran % 61.6 (36.0-66.0) % Immature Gran % (Auto) 0.2 (0.00-0.4) % Nucleat RBC Rel Count 0.0 (0.00-0.1) % Eos # (Auto) 0.09 (0-0.5) x10^3/uL Immature Gran # (Auto) 0.02 (0.00-0.03) x10^3u/L Absolute Lymphs (auto) 2.95 (1.0-4.6) x10^3/uL Absolute Monos (auto) 0.48 (0.0-1.3) x10^3/uL Absolute Nucleated RBC 0.00 (0.00-0.01) x10^3u/L Lymphocytes % 31.7 (24.0-44.0) % Monocytes % 5.2 (0.0-12.0) % Eosinophils % 1.0 (0.00-5.0) % Basophils % 0.3 (0.0-0.4) % Absolute Granulocytes 5.75 (1.4-6.9) x10^3/uL Basophils # 0.03 (0-0.4) x10^3/uL Sodium 136 L (137-145) mmol/L Potassium 4.5 (3.5-5.1) mmol/L Chloride 103 (98-107) mmol/L Carbon Dioxide 25 (22-30) mmol/L Anion Gap 12.8 (5-15) MEQ/L BUN 10 (7-17) mg/dL Creatinine 0.66 (0.52-1.04) mg/dL Estimated GFR > 60.0 ML/MIN Glucose 106 (74-106) mg/dL Calcium 8.6 (8.4-10.2) mg/dL Total Bilirubin 0.60 (0.2-1.3) mg/dL AST 20 (14-36) U/L ALT 14 (0-35) U/L Alkaline Phosphatase 72 (38-126) U/L Serum Total Protein 7.6 (6.3-8.2) g/dL Albumin 4.3 (3.5-5.0) g/dL Urine HCG, Qual NEGATIVE (NEGATIVE) Salicylates < 1.0 L (2-20) mg/dL Urine Opiates Level (NEGATIVE) Ur Methadone (NEGATIVE) Acetaminophen < 10 L (10-30) ug/ml Urine Barbiturates (NEGATIVE) Ur Phencyclidine (PCP) (NEGATIVE) Urine Amphetamine (NEGATIVE) U Benzodiazepine Level (NEGATIVE) Urine Cocaine (NEGATIVE) Urine Marijuana (THC) (NEGATIVE) Ethyl Alcohol < 10 (0-10) mg/dL 12/06/22 Range/Units 14:42 WBC (4.0-10.5) x10^3/uL RBC (4.1-5.4) x10^6/uL Hgb (12.0-16.0) g/dL Hct (35-47) % MCV (78-100) fL MCH (26-32) pg MCHC (32-36) g/dL RDW (11.5-14.0) % Plt Count (150-450) x10^3/uL MPV (7.5-11.0) fL Gran % (36.0-66.0) % Immature Gran % (Auto) (0.00-0.4) % Nucleat RBC Rel Count (0.00-0.1) % Eos # (Auto) (0-0.5) x10^3/uL Immature Gran # (Auto) (0.00-0.03) x10^3u/L Absolute Lymphs (auto) (1.0-4.6) x10^3/uL Absolute Monos (auto) (0.0-1.3) x10^3/uL Absolute Nucleated RBC (0.00-0.01) x10^3u/L Lymphocytes % (24.0-44.0) % Monocytes % (0.0-12.0) % Eosinophils % (0.00-5.0) % Basophils % (0.0-0.4) % Absolute Granulocytes (1.4-6.9) x10^3/uL Basophils # (0-0.4) x10^3/uL Sodium (137-145) mmol/L Potassium (3.5-5.1) mmol/L Chloride (98-107) mmol/L Carbon Dioxide (22-30) mmol/L Anion Gap (5-15) MEQ/L BUN (7-17) mg/dL Creatinine (0.52-1.04) mg/dL Estimated GFR ML/MIN Glucose (74-106) mg/dL Calcium (8.4-10.2) mg/dL Total Bilirubin (0.2-1.3) mg/dL AST (14-36) U/L ALT (0-35) U/L Alkaline Phosphatase (38-126) U/L Serum Total Protein (6.3-8.2) g/dL Albumin (3.5-5.0) g/dL Urine HCG, Qual (NEGATIVE) Salicylates (2-20) mg/dL Urine Opiates Level NEGATIVE (NEGATIVE) Ur Methadone NEGATIVE (NEGATIVE) Acetaminophen (10-30) ug/ml Urine Barbiturates NEGATIVE (NEGATIVE) Ur Phencyclidine (PCP) NEGATIVE (NEGATIVE) Urine Amphetamine NEGATIVE (NEGATIVE) U Benzodiazepine Level NEGATIVE (NEGATIVE) Urine Cocaine NEGATIVE (NEGATIVE) Urine Marijuana (THC) POSITIVE (NEGATIVE) Ethyl Alcohol (0-10) mg/dL - Progress Progress: improved Progress Note: 12/06/22 15:33 Patient did allow us to draw blood and give us a urine sample. No signs of abnormalities on blood work so far. 100% on room air. Resting comfortably in the bed as I exit. I was informed later on by nursing staff that patient had eloped from the emergency department prior to work-up being complete. We did contact the police detective to let them know. They are aware that she left the emergency department. Given that patient was walking with a steady gait, alert and oriented x3, denying suicidal or homicidal ideation. I do not believe that patient is meeting any criteria for a immediate medical attention. Therefore we will attempt to call her to let her know she can return here at any point time for new or changing symptoms. Counseled pt/family regarding: lab results, diagnosis, need for follow-up - Departure Departure Disposition: Home Clinical Impression: Drug use Condition: Stable Critical Care Time: No Referrals: ALYSSA VALDOVINOS [Primary Care Provider] - Follow up/PCP as directed
[2022-12-06 15:45] LABS: Appearance Clear (Clear); Bilirubin Negative (Negative); Blood Negative (Negative); Epithelial Cells Moderate /HPF (None Seen); Glucose, Urine Negative (Negative); Hyaline Casts NONE SEEN /LPF (0-2); Ketones Negative (Negative); Leukocyte Esterase Small (Negative); Nitrite Negative (Negative); Ph 5.5 (4.6-8.0); Protein,Urine Dip Negative (Negative); RBC 0-2 /HPF (0-5); Specific Gravity 1.015 (1.005-1.030); Urobilinogen 0.2 mg/dL (0.2)
[2022-12-06 15:46] LABS: ADD URINE CULTURE? YES (NO); Bacteria Few /HPF (None Seen)
== END 2022-12-06 15:27 | disposition home or self-care (01) ==
LOC: ED 14:25
DX: F11.90 Opioid use, unspecified, uncomplicated (principal); F12.90 Cannabis use, unspecified, uncomplicated; F19.90 Other psychoactive substance use, unspecified, uncomplicated; Z28.310 Unvaccinated for COVID-19; Z72.0 Tobacco use
CPT/HCPCS: 36415; 80053; 80143; 80179; 80307; 81001; 81025; 82077; 85025; 87086; 99282

== ENCOUNTER 2022-12-06 16:45 | Emergency (ER) | payer OTHER ==
[2022-12-06 16:51] VITALS: BP 116/77; PULSE 129; O2SAT 96
--- NOTE | 2022-12-06 16:59 | ERPHSYRPT ---
- History of Present Illness Time Seen by Provider: 12/06/22 16:56 Source: patient Exam Limitations: no limitations Patient Subjective Stated Complaint: Patient brought into ER by police for medical clearance Triage Nursing Assessment: Patient arrived in ER escorted by an officer. She is awake/alert. She is answering questions appropriately by shaking her head yes or no but is not speaking at this time. No SOB. She is ambulating with a steady g ait. Cooperative with staff at this time. Physician History: Patient seen in the emergency department earlier today. Patient eloped in the emergency department. She was then arrested by police for her drug use and continued public disturbance. Patient brought here for medical clearance. Patient just left our emergency department a short time ago. At that point in time labs, hemodynamic this, otherwise stable exam. Patient alert and oriented x3 denying any suicidal or homicidal ideation. Allergies/Adverse Reactions: No Known Drug Allergies Allergy (Verified 12/06/22 14:34) Home Medications: Buprenorphine HCl/Naloxone HCl [Suboxone 8 mg-2 mg Sl Film] 1 tab PO BID 12/06/22 [History] Hx Tetanus, Diphtheria Vaccination/Date Given: No Hx Influenza Vaccination/Date Given: No Hx Pneumococcal Vaccination/Date Given: No Immunizations Up to Date: No Travel Risk - International Travel Have you traveled outside of the country in past 3 weeks: No - Coronavirus Screening Are you exhibiting any of the following symptoms?: No Close contact with a COVID-19 positive Pt in past 14-21 Days: No - Vaccine Status Have you recieved a Covid-19 vaccination: No - Review of Systems Constitutional: No Fever, No Chills Eyes: No Symptoms Ears, Nose, & Throat: No Symptoms Respiratory: No Cough, No Dyspnea Cardiac: No Chest Pain, No Edema, No Syncope Abdominal/Gastrointestinal: No Abdominal Pain, No Nausea, No Vomiting, No Diarrhea Genitourinary Symptoms: No Dysuria Musculoskeletal: No Back Pain, No Neck Pain Skin: No Rash Neurological: No Dizziness, No Focal Weakness, No Sensory Changes Psychological: No Symptoms Endocrine: No Symptoms All Other Systems: Reviewed and Negative - Past Medical History Pertinent Past Medical History: Yes Neurological History: No Pertinent History ENT History: No Pertinent History Cardiac History: No Pertinent History Respiratory History: No Pertinent History Endocrine Medical History: No Pertinent History Musculoskeletal History: Fractures GI Medical History: Hepatitis History: No Pertinent History Psycho-Social History: Attention Deficit Disorder, Bipolar Female Reproductive Disorders: Other Other Medical History: pt has history of multiple fractures in her life, Hep C, bipolar - Past Surgical History Past Surgical History: Yes Neuro Surgical History: No Pertinent History Cardiac: No Pertinent History Respiratory: No Pertinent History Gastrointestinal: No Pertinent History Genitourinary: No Pertinent History Musculoskeletal: Orthopedic Surgery Female Surgical History: Tubal Ligation Other Surgical History: right knee - Social History Smoking Status: Current every day smoker How long have you smoked: 10 years Exposure to second hand smoke: Yes Alcohol Use: None Drug Use: marijuana, bath salts, heroin Patient Lives Alone: No Significant Family History: no pertinent family hx - Female History Hx Now: No - Nursing Vital Signs Nursing Vital Signs: Initial Vital Signs Temperature 99.3 F 12/06/22 16:46 Pulse Rate 129 H 12/06/22 16:46 Respiratory Rate 18 12/06/22 16:46 Blood Pressure 116/77 12/06/22 16:46 O2 Sat by Pulse Oximetry 96 12/06/22 16:46 Pain Scale Pain Intensity 0 - Physical Exam General Appearance: no apparent distress, alert Eye Exam: PERRL/EOMI, eyes nml inspection Ears, Nose, Throat Exam: normal ENT inspection, TMs normal, pharynx normal, moist mucous membranes Neck Exam: normal inspection, non-tender, supple, full range of motion Respiratory Exam: normal breath sounds, lungs clear, No respiratory distress Cardiovascular Exam: regular rate/rhythm, normal heart sounds, normal peripheral pulses Gastrointestinal/Abdomen Exam: soft, normal bowel sounds, No tenderness, No mass Back Exam: normal inspection, normal range of motion, No CVA tenderness, No vertebral tenderness Extremity Exam: normal inspection, normal range of motion, pelvis stable Neurologic Exam: alert, oriented x 3, cooperative, normal mood/affect, nml cerebellar function, nml station & gait, sensation nml, No motor deficits Skin Exam: normal color, warm, dry, No rash Lymphatic Exam: No adenopathy SpO2: 96 - Progress Progress: improved Progress Note: 12/06/22 17:14 Patient brought in police custody. Alert and oriented x3. Answering all questions. On exam, no signs of trauma. Patient appears to be stable for general at this point in time. Will return here sooner for new or changing symptoms. Denies any suicidal homicidal ideation to myself. Counseled pt/family regarding: diagnosis, need for follow-up - Departure Departure Disposition: Home Clinical Impression: Medical clearance for incarceration Condition: Stable Critical Care Time: No Referrals: ALYSSA VALDOVINOS [Primary Care Provider] - Follow up/PCP as directed Instructions: Polysubstance Use Disorder (DC)
== END 2022-12-06 17:05 ==
LOC: ED 16:45
DX: Z02.89 Encounter for other administrative examinations (principal); Z79.899 Other long term (current) drug therapy; Z28.310 Unvaccinated for COVID-19; Z72.0 Tobacco use
CPT/HCPCS: 99281

== ENCOUNTER 2023-08-17 06:29 | Emergency (ER) | payer OTHER ==
[2023-08-17 06:56] VITALS: BP 104/75; PULSE 120; RESP 16; TEMP 98.8; O2SAT 100
[2023-08-17] MEDS ORDERED: XYLOCAINE 1% HCL 20 ML MDV ONE ×2 (07:13→07:45)
[2023-08-17] MEDS ORDERED: Rocephin 1000 MG INJ IM ONE (07:31)
[2023-08-17] MEDS ORDERED: Adacel Vial IM ONE ×2 (07:34→07:45)
[2023-08-17] MEDS ORDERED: XYLOCAINE 1% HCL 20 ML MDV IJ ONE (07:37)
--- NOTE | 2023-08-17 07:40 | ERPHSYRPT ---
- History of Present Illness Time Seen by Provider: 08/17/23 07:10 Source: patient Exam Limitations: no limitations Patient Subjective Stated Complaint: abscess on buttock Triage Nursing Assessment: pt ambulated/hobbled into ER, c/o abscess to b mstock x1 week. Pt c/o warmth to area and increased pain which shoots up to her back region. Pt has abscess to Left lower buttock, red and warm, 2cm L x 3xcm W, with noted scabbed area to center of abscess. No drainage noted. Physician History: Patient is a 38-year-old female presents to our ED for evaluation and treatment of a left lower buttock abscess. Patient states abscess began as a pustule approximately 1 week ago. The pain grew more tender and swollen over the past week. Patient currently unable to sit comfortably. Symptoms are localized. No fever no trauma. No systemic manifestations. No nausea vomiting or diaphoresis. The area measures 2 x 3 cm. There is an area of cellulitis involved. Tetanus is not up-to-date. Patient voices no other complaints or concerns at this time. Portions of this note were created with voice recognition technology. There may be grammatical, spelling, punctuation or sound alike errors Timing/Duration: week(s) Severity: moderate Modifying Factors: Improves With: nothing Associated Symptoms: denies symptoms Allergies/Adverse Reactions: No Known Drug Allergies Allergy (Verified 08/17/23 06:51) Home Medications: Gabapentin 600 mg PO TID 08/17/23 [History] Hx Tetanus, Diphtheria Vaccination/Date Given: No Hx Influenza Vaccination/Date Given: No Hx Pneumococcal Vaccination/Date Given: No Immunizations Up to Date: No Travel Risk - International Travel Have you traveled outside of the country in past 3 weeks: No - Coronavirus Screening Are you exhibiting any of the following symptoms?: No Close contact with a COVID-19 positive Pt in past 14-21 Days: No - Vaccine Status Have you recieved a Covid-19 vaccination: Yes 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 - Review of Systems Constitutional: No Symptoms, No Fever, No Chills Eyes: No Symptoms Ears, Nose, & Throat: No Symptoms Respiratory: No Symptoms, No Cough, No Dyspnea Cardiac: No Symptoms, No Chest Pain, No Edema, No Syncope Abdominal/Gastrointestinal: No Symptoms, No Abdominal Pain, No Nausea, No Vomiting, No Diarrhea Genitourinary Symptoms: No Symptoms, No Dysuria Musculoskeletal: No Symptoms, No Back Pain, No Neck Pain Skin: No Symptoms, No Rash Neurological: No Symptoms, No Dizziness, No Focal Weakness, No Sensory Changes Psychological: No Symptoms Endocrine: No Symptoms Hematologic/Lymphatic: No Symptoms Immunological/Allergic: No Symptoms All Other Systems: Reviewed and Negative - Past Medical History Pertinent Past Medical History: Yes Neurological History: No Pertinent History ENT History: No Pertinent History Cardiac History: No Pertinent History Respiratory History: No Pertinent History Endocrine Medical History: No Pertinent History Musculoskeletal History: Fractures GI Medical History: Hepatitis History: No Pertinent History Psycho-Social History: Attention Deficit Disorder, Bipolar Female Reproductive Disorders: Other Other Medical History: pt has history of multiple fractures in her life, Hep C, bipolar - Past Surgical History Past Surgical History: Yes Neuro Surgical History: No Pertinent History Cardiac: No Pertinent History Respiratory: No Pertinent History Gastrointestinal: No Pertinent History Genitourinary: No Pertinent History Musculoskeletal: Orthopedic Surgery Female Surgical History: Tubal Ligation Other Surgical History: right knee, right middle finger - Social History Smoking Status: Current every day smoker How long have you smoked: 24 years Exposure to second hand smoke: No Alcohol Use: None Drug Use: none Patient Lives Alone: No Significant Family History: no pertinent family hx - Female History Hx Last Menstrual Period: 08/09/23 Hx Now: No - Nursing Vital Signs Nursing Vital Signs: Initial Vital Signs Temperature 98.8 F 08/17/23 06:54 Pulse Rate 120 H 08/17/23 06:54 Respiratory Rate 16 08/17/23 06:54 Blood Pressure 104/75 08/17/23 06:54 O2 Sat by Pulse Oximetry 100 08/17/23 06:54 Pain Scale Pain Intensity 6 - Physical Exam General Appearance: no apparent distress Eye Exam: PERRL/EOMI Neck Exam: full range of motion Respiratory Exam: normal breath sounds, airway intact Cardiovascular Exam: other (Tachycardia on vitals presumed due to pain and discomfort) Gastrointestinal/Abdomen Exam: soft Neurologic Exam: alert, oriented x 3, cooperative Skin Exam: other (2 x 3 cm area of cellulitis left lower buttock area. The area just at the center has a residual pustule. The area is indurated and tender. No lymphangitis) SpO2 Interpretation: normal SpO2: 100 O2 Delivery: Room Air Procedures - Incision and Drainage Time of Procedure: 07:35 Site: Left lower gluteal region Anesthesia: 1% Lidocaine cc's of anesthesia: 4 Blade Size: 11 I & D Procedure: other (Alcohol) Results: small amount pus Progress: Patient tolerated procedure well. No intra or postprocedural complications. - Course Nursing assessment & vital signs reviewed: Yes Ordered Tests: Medication Summary Generic Name Dose Route Start Last Admin Trade Name Freq PRN Reason Stop Dose Admin Diphtheria/Tetanus/Acell Pertussis 0.5 ml 08/17/23 07:34 Tdap --Diph,Pertuss(Acell),Tet Vac/Pf 0.5 Ml Vial IM 08/17/23 07:35 .ONCE ONE Discontinued Medications Generic Name Dose Route Start Last Admin Trade Name Freq PRN Reason Stop Dose Admin Ceftriaxone Sodium 1,000 mg 08/17/23 07:31 Ceftriaxone Sodium 1000 Mg Inj Vial IM 08/17/23 07:32 STAT ONE Lidocaine HCl Confirm 08/17/23 07:13 Lidocaine Hcl 1% 20 Ml Mdv 20 Ml Ml Administered 08/17/23 07:14 Dose 5 ml .ROUTE .[facility]-MED ONE - Progress Progress: improved Progress Note: Patient is a 38-year-old female presents to our ED with progressive pain to the left lower buttock area. There is an area of cellulitis measuring 2 x 3 cm. There is fluctuance at the center of this area. The area was incised and drained. Small amount of pus was expressed. Patient states that it spontaneously drained earlier in the week. Involved extremities neurovascular intact distally. Compartments are soft cap refill less than 2 seconds. Please refer to I&D note for details. Patient tolerated procedure well. The wound was packed with iodoform gauze. A dressing was applied. Patient received an IM dose of Rocephin in our ED. Patient's tetanus was updated. A prescription for Keflex forwarded to patient's pharmacy. Patient to maintain the dressing in place for 2 days / 48 hours. Patient to follow-up with her primary care doctor within 48 hours for wound assessment and to remove the packing. A prescription for Toradol forwarded to patient's pharmacy pain control. Patient voices no other complaints or concerns at this time. Portions of this note were created with voice recognition technology. There may be grammatical, spelling, punctuation or sound alike errors Complexity problem addressed is low acute uncomplicated No critical care time Complexity of data reviewed and analyzed is none. No specialized testing ordered. Diagnosis made based on history and physical exam Risk of complication and or risk of morbidity/mortality of patient management is moderate. A prescription for Keflex and Toradol forwarded to patient's pharmacy. Time spent to discharge patient is approximately 30 minutes. Vital stable. Plan of care established for shared decision making. Outpatient management and follow-up discussed. Prescriptions forwarded to patient's pharmacy. Patient expresses understanding of follow-up care. No social determinants of health present impede follow-up. Patient voices no other complaints or concerns at this time. Portions of this note were created with voice recognition technology. There may be grammatical, spelling, punctuation or sound alike errors 08/17/23 07:41 08/17/23 07:44 Counseled pt/family regarding: diagnosis, need for follow-up - Departure Departure Disposition: Home Clinical Impression: Abscess, Cellulitis Condition: Stable Critical Care Time: No Instructions: Wound Infection Additional Instructions: Discharge/Care Plan DAMIÁN ACOSTA was seen on 08/17/23 in the Emergency Room. The patient was counseled regarding Diagnosis,Lab results, Imaging studies, need for follow up and when to return to the Emergency Room. Prescriptions given: Discharge Note I have spoken with the patient and/or caregivers. I have explained the patient's condition, diagnosis and treatment plan based on the information available to me at this time. I have answered the patient's and/or caregiver's questions and addressed any concerns. The patient and/or caregivers have as good understanding of the patient's diagnosis, condition and treatment plan as can be expected at this point. The vital signs have been stable. The patient's condition is stable and appropriate for discharge from the emergency department. The patient will pursue further outpatient evaluation with the primary care physician or other designated or consulting physician as outlined in the discharge instructions. The patient and/or caregivers are agreeable to this plan of care and follow-up instructions have been explained in detail. The patient and/or caregivers have received these instruction. The patient/and or caregivers are aware that any significant change in condition or worsening of symptoms should prompt an immediate return to this or the closest emergency department or call 911. Prescriptions: Cephalexin Mh 500 mg [Keflex 500 mg] 500 mg PO TID #21 cap Ketorolac Trometh 10 mg Tab [TORAdol 10 MG TABLET] 10 mg PO TID 5 Days #15 tablet
[2023-08-17] MEDS ORDERED: Rocephin 1000 MG INJ ONE (07:45)
== END 2023-08-17 08:17 | disposition home or self-care (01) ==
LOC: ED 06:29
DX: L02.31 Cutaneous abscess of buttock (principal); L03.317 Cellulitis of buttock; Z79.899 Other long term (current) drug therapy; Z72.0 Tobacco use; Z23 Encounter for immunization
CPT/HCPCS: 10060; 90471; 90715; 96372; 99283; J0696

== ENCOUNTER 2023-08-19 12:17 | Emergency (ER) | payer SELFPAY ==
[2023-08-19 12:34] VITALS: BP 116/75; PULSE 104; TEMP 98.3; O2SAT 99
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
== END 2023-08-19 12:44 | disposition home or self-care (01) ==
LOC: ED 12:17
DX: Z48.00 Encounter for change or removal of nonsurgical wound dressing (principal); L02.416 Cutaneous abscess of left lower limb; Z79.899 Other long term (current) drug therapy; Z72.0 Tobacco use
CPT/HCPCS: 99281

== ENCOUNTER 2023-11-16 17:53 | Emergency (ER) | payer SELFPAY ==
--- NOTE | 2023-11-16 18:21 | ERPHSYRPT ---
- History of Present Illness Time Seen by Provider: 11/16/23 18:15 Source: patient Physician History: 38-year-old female presented to our ED as she advised a police officer crime prevention that she wanted to speak to someone from the [facility]. Upon arrival to our ED patient decided that she did not want to see [facility] at this particular time. Patient denied homicidal suicidal ideation. Patient advised that she wanted to go home. She declined a physical exam. Patient grabbed her bags and left the treatment room. Patient refused a formal physical exam. However in this short discussion I had with her patient appears to be mentating normally answering questions appropriately and of sound mind. Portions of this note were created with voice recognition technology. There may be grammatical, spelling, punctuation or sound alike errors Timing/Duration: today Severity: mild Modifying Factors: Improves With: nothing Associated Symptoms: denies symptoms Allergies/Adverse Reactions: No Known Drug Allergies Allergy (Verified 08/19/23 12:34) Home Medications: Gabapentin 600 mg PO TID 08/17/23 [History] Hx Tetanus, Diphtheria Vaccination/Date Given: No Hx Influenza Vaccination/Date Given: No Hx Pneumococcal Vaccination/Date Given: No - Review of Systems Constitutional: No Symptoms Eyes: No Symptoms Ears, Nose, & Throat: No Symptoms Respiratory: No Symptoms Cardiac: No Symptoms Abdominal/Gastrointestinal: No Symptoms Genitourinary Symptoms: No Symptoms Musculoskeletal: No Symptoms Skin: No Symptoms Neurological: No Symptoms Psychological: No Symptoms Endocrine: No Symptoms Hematologic/Lymphatic: No Symptoms Immunological/Allergic: No Symptoms - Past Medical History Pertinent Past Medical History: Yes Neurological History: No Pertinent History ENT History: No Pertinent History Cardiac History: No Pertinent History Respiratory History: No Pertinent History Endocrine Medical History: No Pertinent History Musculoskeletal History: Fractures GI Medical History: Hepatitis History: No Pertinent History Psycho-Social History: Attention Deficit Disorder, Bipolar Female Reproductive Disorders: Other Other Medical History: pt has history of multiple fractures in her life, Hep C, bipolar - Past Surgical History Past Surgical History: Yes Neuro Surgical History: No Pertinent History Cardiac: No Pertinent History Respiratory: No Pertinent History Gastrointestinal: No Pertinent History Genitourinary: No Pertinent History Musculoskeletal: Orthopedic Surgery Female Surgical History: Tubal Ligation Other Surgical History: right knee, right middle finger Significant Family History: no pertinent family hx - Social History Smoking Status: Current every day smoker How long have you smoked: 24 years Exposure to second hand smoke: Yes Alcohol Use: None Drug Use: none Patient Lives Alone: No - Physical Exam General Appearance: no apparent distress Eye Exam: PERRL/EOMI Neck Exam: normal inspection Respiratory Exam: airway intact Extremity Exam: normal inspection Neurologic Exam: alert, oriented x 3, cooperative, chaplain resident 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 tested Skin Exam: normal color - Course Nursing assessment & vital signs reviewed: Yes - Progress Progress: unchanged Progress Note: Patient arrived to treatment room 3 with the intent to speak to [facility]. Patient had a change of heart and decided she did not want to speak to [facility]. Patient denied homicidal suicidal ideation. She felt she did not need to be in the ER and decided to leave. Patient declined a physical exam. My observation/exam of the patient was limited per patient's request. Patient left the ER on her own accord Portions of this note were created with voice recognition technology. There may be grammatical, spelling, punctuation or sound alike errors Complexity of problem is minimal No critical care time Complexity of data reviewed is none. No specialized testing ordered. Patient inclined physical exam and testing. Patient left the ED as she felt a exam was not necessary Risk of complication and or risk of morbidity/mortality is minimal Patient left our ED before vitals can be obtained. Patient was not formally discharged she left the ED prior to physical exam or testing Counseled pt/family regarding: diagnosis - Departure Departure Disposition: AMA Clinical Impression: Well adult health check Condition: Stable Critical Care Time: No Referrals: DOCTOR,NO FAMILY [Primary Care Provider] - Follow up/PCP as directed JACKIE SONI MD [ACTIVE STAFF] - Follow up/PCP as directed Additional Instructions: Discharge/Care Plan DAMIÁN ACOSTA was seen on 11/16/23 in the Emergency Room. The patient was counseled regarding Diagnosis,Lab results, Imaging studies, need for follow up and when to return to the Emergency Room. Prescriptions given: Discharge Note I have spoken with the patient and/or caregivers. I have explained the patient's condition, diagnosis and treatment plan based on the information available to me at this time. I have answered the patient's and/or caregiver's questions and addressed any concerns. The patient and/or caregivers have as good understanding of the patient's diagnosis, condition and treatment plan as can be expected at this point. The vital signs have been stable. The patient's condition is stable and appropriate for discharge from the emergency department. The patient will pursue further outpatient evaluation with the primary care physician or other designated or consulting physician as outlined in the discharge instructions. The patient and/or caregivers are agreeable to this plan of care and follow-up instructions have been explained in detail. The patient and/or caregivers have received these instruction. The patient/and or caregivers are aware that any significant change in condition or worsening of symptoms should prompt an immediate return to this or the closest emergency department or call 911.
== END 2023-11-16 18:27 | disposition left against medical advice (07) ==
LOC: ED 17:53
DX: Z76.89 Persons encountering health services in other specified circumstances (principal)
CPT/HCPCS: 99281

== ENCOUNTER 2024-12-19 05:46 | Day surgery (SDC) | payer OTHER ==
[2024-12-19] MEDS: Lactated Ringers 1,000 ML IV SCH (06:26)
[2024-12-19] MEDS: CEFAZOLIN 2 GM/100 ML NaCl 2 GM/100 ML IVPB IV SCH (06:26)
[2024-12-19 06:39] LABS: HCG SERUM TEST NEGATIVE (NEGATIVE)
[2024-12-19] MEDS ORDERED: OFIRMEV 100 ML IV ONE (07:45)
[2024-12-19] MEDS ORDERED: Versed 2 MG/2 ML Injection ONE (07:49)
[2024-12-19] MEDS ORDERED: dexAMETHasone sodium phosphate ONE (07:49)
[2024-12-19] MEDS ORDERED: Zofran 4 MG/2 ML VIAL ONE (07:49)
[2024-12-19] MEDS ORDERED: propofoL IV ONE (07:49)
[2024-12-19] MEDS ORDERED: Xylocaine-Mpf 2% 5 Ml Vial ONE (07:49)
[2024-12-19] MEDS ORDERED: Ketamine HCl 50 MG/ML ONE (07:50)
[2024-12-19] MEDS ORDERED: DEXMEDETOMIDINE 80 MCG/20ML-NS IV ONE (07:50)
[2024-12-19] MEDS ORDERED: TORAdol 30 mg Injection ONE (07:50)
[2024-12-19] MEDS ORDERED: XYLOCAINE 1%/Epi 1:100000 MDV 20 ML ONE (08:05)
[2024-12-19] MEDS ORDERED: ASTRINGYN 8 GM TP ONE (08:06)
[2024-12-19 09:26] VITALS: O2SAT 100
[2024-12-19 09:34] VITALS: BP 121/83; PULSE 88; RESP 18; TEMP 97.3
--- NOTE | 2024-12-20 20:45 | OP ---
SURGERY DATE/TIME: 12/19/2024 [id number] PREOPERATIVE DIAGNOSIS: Severe cervical dysplasia. POSTOPERATIVE DIAGNOSIS: Severe cervical dysplasia. PROCEDURE: Loop electrosurgical excision procedure. SURGEON: Vega Nash DO ASSISTANT GOLF COURSE SUPERINTENDENT: Katrina Card ANESTHESIA: General. ESTIMATED BLOOD LOSS: Minimal. COMPLICATIONS: None. INDICATIONS: The risks, benefits, indications, and alternatives of the procedure were reviewed with the patient prior to the procedure. The patient understood the risks of infection, bleeding, bowel injury, bladder injury, cervical incompetence associated with this surgery, as well as anorgasmia and pelvic infection. The patient understands all risks associated with this procedure as well as understands the risk of progression of cervical dysplasia. DESCRIPTION OF PROCEDURE AND FINDINGS: At this point, the patient was taken to the operating room, given general sedation, placed in dorsal lithotomy position, prepped and draped in the usual sterile fashion. A coated speculum was then placed in the patient's vagina, and the cervix was then injected circumferentially with 1% lidocaine with epinephrine. At this point, the loop instrument was then used to excise the ectocervical portion in a [id number] motion with in depth of 7 to 8 mm. The ectocervical tissue was excised without complication. An additional 2 to 3 mm of endocervical tissue was excised in a similar fashion. Hemostasis was obtained by placing a loop health insurance adjuster ball on the surface of the cervix and was done so without complication and hemostasis was further obtained. From this point, Monsel's solution was placed on the surface of the cervix as well. All instruments were then removed from the patient's vaginal region. The patient was then taken out of the dorsal lithotomy position, was taken out of anesthesia, was then taken to the recovery room in stable condition. All instruments and laps were accounted for x2.
== END 2024-12-19 09:37 | disposition home or self-care (01) ==
LOC: SDC 05:46
PROVIDERS: ATTEND Obstetrics & Gynecology
DX: D06.9 Carcinoma in situ of cervix, unspecified (principal)
CPT/HCPCS: 36415; 57460; 84703; J0690; J1100; J1885; J2250; J2405; J2704; A9270-GY